=== PATIENT | male | born 1985 | race African-American/Black ===

== ENCOUNTER 2020-06-13 17:25 | Emergency (ER) | payer SELFPAY ==
[2020-06-13 17:27] VITALS: BP 163/91; PULSE 97; RESP 20; TEMP 36.3; O2SAT 98
[2020-06-13] MEDS: predniSONE 20 MG TABLET 60 MG PO (18:05)
[2020-06-13 18:10] LABS: Basophils Percent Auto 0.5 % (0.2-1.2); Eosinophils Absolute Auto 0.1 K/mm3 (0-0.3); Eosinophils Percent Auto 1.3 % (0-4.4); Hematocrit 53.3 % (42.0-52.0); Hemoglobin 18.3 g/dL (14.0-18.0); Immature Granulocyte Absolute 0.02 K/mm3 (0.00-0.031); Immature Granulocyte Percent A 0.2 % (0-0.5); Lymphocytes Absolute Auto 3.19 K/mm3 (0.9-3.2); Lymphocytes Percent Auto 38.1 % (18.3-44.2); Mean Corpuscular HGB Conc 34.3 g/dl (32-36); Mean Corpuscular Hemoglobin 35.1 pg (26-34); Mean Corpuscular Volume 102.3 fl (80-100); Mean Platelet Volume 12.2 fl (7.4-10.4); Monocytes Absolute Auto 1.1 K/mm3 (0.1-0.6); Monocytes Percent Auto 12.5 % (2.6-8.5); Neutrophils Percent Auto 47.4 % (45.5-73.1); Platelet Count Result 187 k/mm3 (150-375); Red Blood Count 5.21 M/mm3 (4.6-6.20); Red Cell Distribution Width 13.6 % (11.5-14.5); White Blood Count 8.4 K/mm3 (4.5-10.0)
--- NOTE | 2020-06-13 18:14 | PC.NURSE ---
patient given prednisone as ordered. labs drawn by trim technician.
[2020-06-13 18:22] LABS: Atypical Lymphocytes Present; Platelet Estimate Adequate (Adequate)
[2020-06-13 18:24] LABS: Anion Gap 9 mmol/L (8-16); Blood Urea Nitrogen 15 mg/dL (9-20); CRP 1.4 mg/dL (<1.0); Calcium 9.4 mg/dL (8.4-10.2); Carbon Dioxide 33 mmol/L (22-30); Chloride 98 mmol/L (98-107); Estimated CRCL calculation 121 ml/min; Estimated Glomerular Filt Rate > 60; Glucose 100 mg/dL (75-110); Potassium 3.4 mmol/L (3.4-5.0); Sodium 140 mmol/L (137-145); Uric Acid 8.8 mg/dL (3.5-8.5)
--- NOTE | 2020-06-13 19:03 | ED.EXTPRO ---
HPI - Extremity Problem General Chief complaint: Extremity Problem,Nontraumatic Stated complaint: rt foot pain & swelling Time Seen by Provider: 06/13/20 17:44 Source: patient Mode of arrival: ambulatory Limitations: no limitations History of Present Illness HPI Narrative: 35-year-old with no major medical problems here with complaints of right ankle pain and swelling for past few days. He denies any trauma. 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 No previous history of any gout. MD Complaint: joint swelling and joint paint Onset (ago): week(s) (1) Location: right Severity scale (1-10): 6 Quality: aching Relieving factors: nothing Exacerbating factors: nothing Related Data Home Medications Medication Instructions Recorded Confirmed naproxen sodium [Aleve] 220 mg PO Q12H PRN 06/13/20 Allergies Allergy/AdvReac Type Severity Reaction Status Date / Time No Known Allergies Allergy Mild Verified 06/13/20 17:32 Review of Systems Review of Systems: All systems reviewed & are unremarkable except as noted in HPI and below Constitutional: Constitutional: Reports no additional constitutional complaints Eyes: Eyes: Reports as per HPI ENT: Reports system reviewed and no additional complaints, except as documented Respiratory: Respiratory: Reports no additional respiratory complaints Musculoskeletal: Musculoskeletal: Reports no additional musculoskeletal complaints Neurologic: Reports system reviewed and no additional complaints, except as documented Psychiatric: Psychiatric: Reports no additional psychiatric complaints [facility] Social History Social History Gender identity (if verbalized by the patient): Male Exam Narrative: Exam Narrative: GENERAL: Well-appearing, well-nourished, and in no acute distress. HEAD: Normocephalic, atraumatic. EYES: PERRLA and EOMI. ENT: Nares clear, Mucous membranes moist. NECK: Supple. CHEST: Clear to auscultation. No respiratory distress. HEART: Regular rate and rhythm. No murmur heard. Normal peripheral pulses. ABDOMEN: Soft, nontender, nondistended, normal active bowel sounds. EXTREMITIES: Normal range of motion. No edema. SKIN: Warm, dry, no rash. NEURO: No focal deficits. Alert and oriented x3. PSYCH: Normal mood and affect. Course Course Emergency Course: Inform patient about his lab work. Advised him to cut down red meat, take medications as prescribed, follow-up with his primary doctor. Vital Signs Vital signs: Vital Signs Temperature 36.3 C L 06/13/20 17:27 Pulse Rate 97 06/13/20 17:27 Respiratory Rate 20 06/13/20 17:27 Blood Pressure 163/91 H 06/13/20 17:27 Pulse Oximetry 98 06/13/20 17:27 Temperature 36.3 C L 06/13/20 17:27 Pulse Rate 97 06/13/20 17:27 Respiratory Rate 20 06/13/20 17:27 Blood Pressure 163/91 H 06/13/20 17:27 Pulse Oximetry 98 06/13/20 17:27 MDM - Extremity (Nontraumatic) Lab Data Result diagrams: 06/13/20 18:05 06/13/20 18:05 Labs: Lab Results 06/13/20 06/13/20 Range/Units 18:05 18:05 WBC 8.4 (4.5-10.0) K/mm3 RBC 5.21 (4.6-6.20) M/mm3 Hgb 18.3 H (14.0-18.0) g/dL Hct 53.3 H (42.0-52.0) % MCV 102.3 H (80-100) fl MCH 35.1 H (26-34) pg MCHC 34.3 (32-36) g/dl RDW 13.6 (11.5-14.5) % Plt Count 187 (150-375) k/mm3 MPV 12.2 H (7.4-10.4) fl Immature Gran % (Auto) 0.2 (0-0.5) % Neut % (Auto) 47.4 (45.5-73.1) % Lymph % (Auto) 38.1 (18.3-44.2) % [place] % (Auto) 12.5 H (2.6-8.5) % Eos % (Auto) 1.3 (0-4.4) % Baso % (Auto) 0.5 (0.2-1.2) % Lymph # (Auto) 3.19 (0.9-3.2) K/mm3 [place] # (Auto) 1.1 H (0.1-0.6) K/mm3 Eos # (Auto) 0.1 (0-0.3) K/mm3 Baso # (Auto) 0.0 (0.0-0.1) K/mm3 Abs Immat Gran (auto) 0.02 (0.00-0.031) K/mm3 Absolute Neuts (auto) 4.0 (1.3-6.7) K/mm3 Absolute Nucleated RBC 0.0 (0.0-0.012) K/mm3 Nucleated RBC % 0.0 (0.0-0.2) % Atypical
[2020-06-13 19:21] VITALS: BP 145/78; PULSE 88; O2SAT 96
== END 2020-06-13 19:22 | disposition home or self-care (01) ==
PROVIDERS: Emergency Provider Family Medicine
DX: M10.9 Gout, unspecified (principal)
CPT/HCPCS: 36415; 80048; 84550; 85025; 86140; 99283; J7512

== ENCOUNTER 2022-01-05 06:09 | Emergency (ER) | payer SELFPAY ==
--- NOTE | ~2022-01-05 | XR_ITS ---
EXAMINATION: XR shoulder LT min 2V DATE: 01/05/2022 06:39 INDICATION: Trauma to the left shoulder TECHNIQUE: AP internally and externally rotated, AP oblique externally rotated and transscapular Y vi ews of the left shoulder were obtained. COMPARISON: None FINDINGS: Normal alignment. No fracture. Glenohumeral joint is normal. Acromioclavicular joint is normal. Soft tissues are unremarkable. Visualized portion of the left lung are clear. IMPRESSION: Negative left shoulder radiographs. Reviewed, dictated and finalized at location A.
--- NOTE | ~2022-01-05 | CT_ITS ---
EXAMINATION: CT cervical spine wo con DATE: 01/05/2022 07:46 INDICATION: 2 days of neck and shoulder pain. TECHNIQUE: Computed tomography (CT) of the cervical spine was performed without intravenous contrast. Automated exposure control and iterative reconstruction technique were employed. The dose-length pro duct was 472.52 mGy-cm. COMPARISON: None FINDINGS: Likely positional mild reversal of the normal cervical lordosis with a folded blanket seen supporting the patient's head. No spondylolisthesis or facet subluxation. Vertebral body and disc heights are n ormal. No fracture. No significant facet or uncovertebral osteoarthritis. Central canal and neural fo ramina are patent throughout. Cervical soft tissues are unremarkable. The mastoid air cells, middle e ar cavities and visualized portions of the sphenoid sinuses, airway and apices of lungs are all clear . IMPRESSION: 1. Likely positional reversal of the normal cervical lordosis. Otherwise unremarkable cervical spine CT. Reviewed, dictated and finalized at location A. IMPRESSION: 1. Likely positional reversal of the normal cervical lordosis. Otherwise unrema rkable cervical spine CT.
[2022-01-05 06:10] VITALS: BP 149/124; PULSE 89; RESP 18; TEMP 37.1; O2SAT 100
[2022-01-05 06:25] VITALS: BP 148/109; PULSE 71; RESP 18; O2SAT 99
[2022-01-05] MEDS: IBUPROFEN 600 MG TABLET PO (06:25)
--- NOTE | 2022-01-05 07:26 | PC.NURSE ---
Took report from maintenance technician 3rd shift, pt resting at this time.
[2022-01-05 07:33] VITALS: BP 131/100; PULSE 63; RESP 20; O2SAT 100
--- NOTE | 2022-01-05 07:42 | ED.UPPEXIN ---
HPI - Extremity Injury (Upper) General Chief Complaint: Extremity Injury, Upper Stated Complaint: left arm pain Time Seen by Provider: 01/05/22 06:20 Source: patient Mode of arrival: ambulatory Limitations: no limitations History of Present Illness HPI narrative: Patient reports a tree branch fell on the top of left shoulder denies head injury. Or other injuries Related Data Home Medications Medication Instructions Recorded Confirmed naproxen sodium [Aleve] 220 mg PO Q12H PRN 06/13/20 Allergies Allergy/AdvReac Type Severity Reaction Status Date / Time No Known Allergies Allergy Mild Verified 01/05/22 06:11 Review of Systems Review of Systems: All systems reviewed & are unremarkable except as noted in HPI and below PMFSH Social History Social History Gender identity (if verbalized by the patient): Male Exam Narrative: General appearance: Well-developed, well-nourished Skin: Normal color Head: Normocephalic, nontraumatic Eyes: Clear conjunctiva ENT: Oropharynx normal, ears normal, nose normal Neck: Supple, nontender Chest and respiratory: Airway patent, no respiratory distress, no accessory muscle use Heart: Regular rate/rhythm Abdomen: Soft, nontender, no organomegaly, quiet bowel sounds Vascular: Normal peripheral pulses, normal capillary refill. Musculoskeletal: Diffuse tenderness at the top of left shoulder, no bruises, no swelling, no deformity, limited range of motion. Diffuse tenderness left side of neck Neurologic: Alert and oriented ?3, [employer] is normal as tested, no gross motor deficit Course Vital Signs Vital signs: Vital Signs Temperature 37.1 C 01/05/22 06:10 Pulse Rate 89 01/05/22 06:10 Respiratory Rate 18 01/05/22 06:10 Blood Pressure 149/124 H 01/05/22 06:10 Pulse Oximetry 100 01/05/22 06:10 Temperature 37.1 C 01/05/22 06:10 Pulse Rate 63 01/05/22 07:33 Respiratory Rate 20 01/05/22 07:33 Blood Pressure 131/100 H 01/05/22 07:33 Pulse Oximetry 100 01/05/22 07:33 MDM - Extremity Injury (Upper) MDM Narrative Medical decision making narrative: Left shoulder contusion/fracture Imaging Data My impression: Impressions Shoulder X-Ray 01/05/22 06:55 IMPRESSION: Negative left shoulder radiographs. Cervical Spine CT 01/05/22 07:57 IMPRESSION: 1. Likely positional reversal of the normal cervical lordosis. Otherwise unremarkable cervical spine CT. Radiologist's impression: Impressions Shoulder X-Ray 01/05/22 06:55 IMPRESSION: Negative left shoulder radiographs. Critical Care Time Critical Care Time Critical Care Time: No Discharge Plan Discharge Clinical Impression: Contusion of left shoulder Qualifiers: Encounter type: initial encounter Qualified Code(s): S40.012A - Contusion of left shoulder, initial encounter Patient Disposition: Home, Self-Care Condition: Stable Instructions: Antibiotic Form Additional Instructions: Return if symptoms are worsening , call your family physician for appointment, take Tylenol as as needed for aches and pain, continue home medications. Prescriptions: New naproxen [Naprosyn] 500 mg tablet 500 mg PO BID PRN (Reason: pain) Qty: 14 RF: 0 No Action naproxen sodium [Aleve] 220 mg Tablet 220 mg PO Q12H PRN (Reason: Pain) RF: 0 Follow-up/Referrals: PHYSICIAN,CIRCULATION LIBRARIAN [Primary Care Provider] - Gareth Padron MD [Physician] - 01/08/22
[2022-01-05 08:35] VITALS: BP 139/85; PULSE 66; RESP 18; O2SAT 100
== END 2022-01-05 08:38 | disposition home or self-care (01) ==
PROVIDERS: Emergency Provider Emergency Medicine
DX: S40.012A Contusion of left shoulder, initial encounter (principal); W20.8XXA Other cause of strike by thrown, projected or falling object, initial encounter
CPT/HCPCS: 72125; 73030; 99283; A9270

== ENCOUNTER 2022-01-14 13:09 | Emergency (ER) | payer OTHER, SELFPAY ==
[2022-01-14 13:30] VITALS: BP 132/85; PULSE 85; RESP 18; TEMP 36.6; O2SAT 97
--- NOTE | 2022-01-14 13:34 | ED.EAR ---
HPI - Ear Problem General Chief complaint: Ear Stated complaint: Can't hear out of ear Time Seen by Provider: 01/14/22 13:34 Source: patient Mode of arrival: ambulatory Limitations: no limitations History of Present Illness HPI Narrative: 36-year-old male presents with decreased hearing, fullness feeling to right ear. No other complaints today. All systems reviewed and negative except as noted above. Related Data Home Medications Medication Instructions Recorded Confirmed elviteg 150 mg-cob 150 mg-emtricit 1 tablet PO DAILY 01/14/22 01/14/22 200 mg-tenofo alafenam 10 mg tablet (Genvoya) Allergies Allergy/AdvReac Type Severity Reaction Status Date / Time No Known Allergies Allergy Mild Verified 01/14/22 13:21 Review of Systems Review of Systems: CONSTITUTIONAL: Denies fever, chills, or sweats. EYES: Denies visual changes, redness, or discharge. ENT: Denies rhinorrhea, congestion, sore throat, or otalgia. Reports right ear fullness, decreased hearing. CARDIOVASCULAR: Denies chest pain, palpitations, or edema. RESPIRATORY: Denies cough or dyspnea. GASTROINTESTINAL: Denies abdominal pain, nausea, vomiting, or diarrhea. GENITOURINARY: Denies dysuria or hematuria. SKIN: Denies rash or itching. MUSCULOSKELETAL: Denies back pain, joint pain, or myalgia. NEUROLOGIC: Denies headache, numbness, or weakness. PSYCHIATRIC: Denies anxiety or depression. All other systems reviewed are negative, except as documented in HPI. PMFSH Social History Social History Gender identity (if verbalized by the patient): Male Comments At time of signature, agree with nursing past medical, surgical, social and family history. There is no relevant family history pertinent to the presenting complaint. Exam Narrative: GENERAL: This is a well-nourished, well-developed patient, in no apparent distress. HEAD: normocephalic, atraumatic. EYES: PERRL. Sclera clear/white. Vision is grossly intact. EARS: External ears normal, right ear canal impacted with cerumen, TMs normal without perforation. NOSE: External nose normal NECK: Neck supple, non-tender without lymphadenopathy, masses or thyromegaly. CARDIOVASCULAR: Regular rate and rhythm without murmurs, gallops, or rubs. RESPIRATORY: Clear to auscultation. Breath sounds equal bilaterally. No wheezes, rales, or rhonchi. SKIN: warm, Dry, intact with no suspicious lesions or rash, good texture and turgor. NEURO: awake, alert, and oriented to person, place and time. There were no obvious focal neurologic abnormalities. EXTREMITIES: Normal range of motion to all extremities. Course Course Level of Care: Express Care Visit Vital Signs Vital signs: Vital Signs Temperature 36.6 C 01/14/22 13:30 Pulse Rate 85 01/14/22 13:30 Respiratory Rate 18 01/14/22 13:30 Blood Pressure 132/85 01/14/22 13:30 Pulse Oximetry 97 01/14/22 13:30 Oxygen Delivery Room Air 01/14/22 13:30 Temperature 36.6 C 01/14/22 13:30 Pulse Rate 85 01/14/22 13:30 Respiratory Rate 18 01/14/22 13:30 Blood Pressure 132/85 01/14/22 13:30 Pulse Oximetry 97 01/14/22 13:30 Oxygen Delivery Room Air 01/14/22 13:30 Reviewed Procedures Ear Wax Removal Right Ear: Ear Wax Removal Date: 01/14/22 Ear Wax Removal Time: 13:49 Cerumenolytic Used: other (Hydrogen peroxide) Results: Re-examined: cerumen removed completely TM Examination: TM(s) intact, normal appearance Ear Canal Exam: atraumatic Patient Tolerated Procedure: well Complications: no problems Technique: ear canal irrigated (Right) and ear canal curetted (right) Medical Decision Making MDM Narrative Medical decision making narrative: Patient is aware of diagnosis, understands and agrees to treatment plan. Anticipatory guidance given. Patient agrees to follow-up as directed and is aware of reasons to seek care at the em
== END 2022-01-14 13:46 | disposition home or self-care (01) ==
PROVIDERS: Emergency Provider Nurse Practitioner Family
DX: H61.21 Impacted cerumen, right ear (principal); Z21 Asymptomatic human immunodeficiency virus [HIV] infection status
CPT/HCPCS: 69210; 99213; A9270; G0463

== ENCOUNTER 2023-11-18 17:45 | Emergency (ER) | payer OTHER, SELFPAY ==
[2023-11-18 17:51] VITALS: BP 138/90; PULSE 90; RESP 16; TEMP 36.4; O2SAT 100
[2023-11-18 18:57] VITALS: BP 139/99; PULSE 82; RESP 18; O2SAT 100
--- NOTE | 2023-11-18 19:00 | PC.NURSE ---
Pt states he does not want any blood drawn or IVs. 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
--- NOTE | 2023-11-18 19:22 | ED.GENADULT ---
[facility] - General Adult General Chief complaint: Nausea/Vomiting/Diarrhea Stated complaint: diarrhea Time Seen by Provider: 11/18/23 19:02 Source: patient Mode of arrival: ambulatory Limitations: no limitations History of Present Illness [facility] narrative: This is a 38-year-old male who presents to the ED with chief complaint of diarrhea x3 days. 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 He reports that he is feeling fine otherwise. He is taking [id number] medications and staying hydrated. Denies fevers, chills, abdominal pain, nausea, vomiting, GI bleeding symptoms. Related Data Home Medications Medication Instructions Recorded Confirmed elviteg 150 mg-cob 150 mg-emtricit 1 tablet PO DAILY 01/14/22 01/14/22 200 mg-tenofo alafenam 10 mg tablet (Genvoya) Allergies Allergy/AdvReac Type Severity Reaction Status Date / Time No Known Allergies Allergy Mild Verified 11/18/23 17:46 Review of Systems Review of Systems: All systems as dictated in [facility] Social History Social History Gender identity (if verbalized by the patient): Male Exam Narrative: GENERAL: Well-appearing, well-nourished, and in no acute distress. HEAD: Normocephalic, atraumatic. EYES: PERRLA and EOMI. ENT: Nares clear, no rhinorrhea or epistaxis. Mucous membranes moist. Oropharynx without tonsillar hypertrophy exudate or other lesions. NECK: Supple. No adenopathy or masses. CHEST: No respiratory distress. Clear to auscultation. No wheezes rales or rhonchi HEART: Regular rate and rhythm. No murmur heard. Normal peripheral pulses. ABDOMEN: Soft, nontender, nondistended, normal active bowel sounds. MSK: Normal range of motion. No edema. SKIN: Warm, dry, no rash. NEURO: Alert and oriented x3. No focal deficits. PSYCH: Normal mood and affect. Course Vital Signs Vital signs: Vital Signs Temperature 97.5 F L 11/18/23 17:51 Pulse Rate 90 11/18/23 17:51 Respiratory Rate 16 11/18/23 17:51 Blood Pressure 138/90 11/18/23 17:51 Pulse Oximetry 100 11/18/23 17:51 Oxygen Delivery Room Air 11/18/23 17:51 Temperature 97.5 F L 11/18/23 17:51 Pulse Rate 82 11/18/23 18:57 Respiratory Rate 18 11/18/23 18:57 Blood Pressure 139/99 H 11/18/23 18:57 Pulse Oximetry 100 11/18/23 18:57 Oxygen Delivery Room Air 11/18/23 17:51 Medical Decision Making MDM Narrative Medical decision making narrative: This is a 38-year-old male who presents to the ED with chief complaint of diarrhea x 3 days. Vitals are normal. Exam is benign. No acute abdomen. Lab work or any further workup was deferred by patient. He states he is feeling fine otherwise and is to see [employer] upholstery department supervisor him come. He was comfortable with supportive measures at home and following up with PCP. Pt will be discharged in stable condition. Return precautions given and supportive measures discussed. Pt is understanding and agreeable with plan for discharge and follow-up with PCP. Vital Signs Vital Signs: Vital Signs Temperature 97.5 F L 11/18/23 17:51 Pulse Rate 90 11/18/23 17:51 Respiratory Rate 16 11/18/23 17:51 Blood Pressure 138/90 11/18/23 17:51 Pulse Oximetry 100 11/18/23 17:51 Oxygen Delivery Room Air 11/18/23 17:51 Temperature 97.5 F L 11/18/23 17:51 Pulse Rate 82 11/18/23 18:57 Respiratory Rate 18 11/18/23 18:57 Blood Pressure 139/99 H 11/18/23 18:57 Pulse Oximetry 100 11/18/23 18:57 Oxygen Delivery Room Air 11/18/23 17:51 Discharge Plan Discharge Clinical Impression: Gastroenteritis Patient Disposition: Home, Self-Care Condition: Stable Instructions: Antibiotic Form Additional Instructions: Your exam today is reassuring overall. Please follow-up with your PCP. Continue staying well hydrated using [id number] medications for diarrhea. If you have any new or worsening s
[2023-11-18 20:00] VITALS: RESP 16
== END 2023-11-18 19:50 | disposition home or self-care (01) ==
PROVIDERS: Emergency Provider Physician Assistant
DX: K52.9 Noninfective gastroenteritis and colitis, unspecified (principal)
CPT/HCPCS: 99281

== ENCOUNTER 2024-03-30 09:47 | Emergency (ER) | payer OTHER, SELFPAY ==
[2024-03-30 09:51] VITALS: BP 142/92; PULSE 76; RESP 20; TEMP 36.6; O2SAT 98
--- NOTE | 2024-03-30 10:21 | ED.MALEGU ---
HPI - Male Genitourinary General Chief complaint: Urogenital-Male Stated complaint: bump on penis Time Seen by Provider: 03/30/24 10:17 History of Present Illness HPI Narrative: Pt presents with bump on his penis that started yesterday and looks a little bigger today. Pt says he was screened for STD's and is negative. Pt says it does not hurt or drain. Pt has no drainiage or dischare or UTI symptoms. Related Data Home Medications Medication Instructions Recorded Confirmed elviteg 150 mg-cob 150 mg-emtricit 1 tablet PO DAILY 01/14/22 01/14/22 200 mg-tenofo alafenam 10 mg tablet (Genvoya) Allergies Allergy/AdvReac Type Severity Reaction Status Date / Time No Known Allergies Allergy Mild Verified 03/30/24 09:56 Review of Systems Review of Systems: All systems reviewed & are unremarkable except as noted in HPI and below PMFSH Social History Social History Gender identity (if verbalized by the patient): Male Exam Const: General: healthy appearing and no acute distress Nutritional Appearance: well nourished Limitations: no limitations Resp: Effort & Inspection: normal respiratory effort Cardio: Rate: regular rate Rhythm: regular rhythm GI: GI Palp: Yes Soft to palpation and No Tenderness to palpation present (GI) : Male General Exam: Yes Genital lesions present (small non erythematous lesion to shaft of penis, no ulcer) Scrotum: scrotum normal Testes: Testes normal Course Vital Signs Vital signs: Vital Signs Temperature 97.9 F 03/30/24 09:51 Pulse Rate 76 03/30/24 09:51 Respiratory Rate 20 03/30/24 09:51 Blood Pressure 142/92 H 03/30/24 09:51 Pulse Oximetry 98 03/30/24 09:51 Oxygen Delivery Room Air 03/30/24 09:51 Temperature 97.9 F 03/30/24 09:51 Pulse Rate 76 03/30/24 09:51 Respiratory Rate 20 03/30/24 09:51 Blood Pressure 142/92 H 03/30/24 09:51 Pulse Oximetry 98 03/30/24 09:51 Oxygen Delivery Room Air 03/30/24 09:51 Discharge Plan Discharge Clinical Impression: Folliculitis Patient Disposition: Home, Self-Care Condition: Stable Instructions: Antibiotic Form, Folliculitis (ED) Prescriptions: New sulfamethoxazole-trimethoprim [Bactrim DS] 800-160 mg tablet 1 tablet PO Q12H Qty: 20 0RF No Action Genvoya [phone] mg tablet 1 tablet PO DAILY ofloxacin 0.3 % drops 10 drp RIGHT EAR DAILY 7 Days Qty: 5 0RF Follow-up/Referrals: UNKNOWN,DOCTOR [Non-Staff] -
== END 2024-03-30 10:38 | disposition home or self-care (01) ==
LOC: ANHED 10:29
PROVIDERS: Emergency Provider Emergency Medicine
DX: L73.9 Follicular disorder, unspecified (principal)
CPT/HCPCS: 99283

== ENCOUNTER 2024-04-20 08:31 | Emergency (ER) | payer OTHER, SELFPAY ==
--- NOTE | ~2024-04-20 | CT_ITS ---
CT of the Abdomen and Pelvis: Indication: Transaminitis, nausea and vomiting Technique: 2.5 mm axial scans were obtained through the abdomen and pelvis following intravenous adm inistration of 100 cc of Omnipaque 350. Dose reduction technique was used on this scan by utilizing a utomated exposure control and iterative reconstruction technique. The dose-length product (DLP) was 4 10.80 mGy-cm. Findings: Scans through the lung bases are unremarkable. There is diffuse hepatic steatosis. The spleen, pancreas, gallbladder, adrenals and kidneys are withi n normal limits. No evidence of aortic aneurysm. No lymphadenopathy. Questionable mild wall thickening of the distal sigmoid colon/rectum. No bowel obstruction. Images through the pelvis were performed. Urinary bladder unremarkable. No pelvic mass seen. No ascit es. Impression: Diffuse hepatic steatosis. Questionable mild wall thickening of the rectum. Correlate for infectious/inflammatory colitis. Reviewed, dictated and finalized at [facility]. Impression: Diffuse hepatic steatosis. Questionable mild wall thickening of the rectum. Correlate for infectious/infla mmatory colitis.
--- NOTE | ~2024-04-20 | XR_ITS ---
Clinical Indication: Shortness of breath PA and lateral views of the chest: Comparison: None Findings: The lungs are clear, without evidence of focal consolidation or pleural effusion. Cardiome diastinal silhouette is within normal limits. Bones and soft tissues are unremarkable. Impression: Normal chest. Reviewed, dictated and finalized at [facility]. Impression: Normal chest.
[2024-04-20 08:38] VITALS: BP 145/93; PULSE 111; RESP 22; TEMP 36.7; O2SAT 100
--- NOTE | 2024-04-20 08:39 | ED.NAVMDI ---
HPI - Nausea/Vomiting/Diarrhea General Chief complaint: Nausea/Vomiting/Diarrhea Stated complaint: dehydrated Time Seen by Provider: 04/20/24 08:38 Source: patient Mode of arrival: ambulatory Limitations: no limitations History of Present Illness HPI Narrative: Patient presents concerned he is dehydrated. Last night he states he acutely started having nausea and body aches he felt lightheaded while at work. He had 1 episode of nonbloody emesis. His last bowel movement was this morning and he denies any diarrhea or blood in it. He has been coughing and feels slightly short of breath though denies any underlying respiratory conditions. He denies smoking. He denies any fever although he did felt chilled. He states he has chest pain only because he is cold. Is also having headache. He lives alone and denies any sick contacts. Related Data Home Medications Medication Instructions Recorded Confirmed elviteg 150 mg-cob 150 mg-emtricit 1 tablet PO DAILY 01/14/22 01/14/22 200 mg-tenofo alafenam 10 mg tablet (Genvoya) Allergies Allergy/AdvReac Type Severity Reaction Status Date / Time No Known Allergies Allergy Mild Verified 04/20/24 08:41 [facility] Social History Social History Smoking status: Never smoker Living arrangements: alone Occupation/Education: occupation Gender identity (if verbalized by the patient): Male Exam Narrative: GENERAL: Well-appearing, well-nourished, and in no acute distress. Odor of alcohol but patient not clinically intoxicated. No slurred speech. HEAD: Normocephalic, atraumatic. EYES: Non injected, non icteric ENT: Nares clear, no rhinorrhea or epistaxis. Tacky mucous membranes. NECK: Supple. CHEST: Speaking in full sentences. No respiratory distress. Lungs clear to auscultation bilaterally without wheezes or crackles. HEART: Regular rate and rhythm. . ABDOMEN: Soft, nondistended. EXTREMITIES: Normal range of motion. No lower extremity edema. SKIN: Warm, dry, no rash. NEURO: No focal deficits. Alert and oriented x3. PSYCH: Normal mood and affect. Course Vital Signs Vital signs: Vital Signs Temperature 98.1 F 04/20/24 08:38 Pulse Rate 111 H 04/20/24 08:38 Respiratory Rate 22 H 04/20/24 08:38 Blood Pressure 145/93 H 04/20/24 08:38 Pulse Oximetry 100 04/20/24 08:38 Oxygen Delivery Room Air 04/20/24 08:38 Temperature 97.9 F 04/20/24 10:30 Pulse Rate 103 H 04/20/24 10:30 Respiratory Rate 16 04/20/24 10:30 Blood Pressure 132/90 04/20/24 10:30 Pulse Oximetry 100 04/20/24 10:30 Oxygen Delivery Room Air 04/20/24 08:38 MDM - Nausea/Vomiting/Diarrhea MDM Narrative Medical decision making narrative: Patient presents with acute onset of nausea, body aches, lightheadedness and headache. He also notes a cough and shortness of breath. No fevers but he does feel chilled. In the emergency department he is afebrile with vital signs notable for mild tachypnea and mild tachycardia. Acceptable blood pressure although slightly elevated. IV fluids and ondansetron ordered. Mild Hyperbilirubinemia, elevated AST/ALT. Macrocytic anemia and thrombocytopenia. He does have an odor of alcohol and has alcohol level in the 50s. I presume the lab abnormalities are related to this. Ketonuria. Hypomagnesemia which will be repleted. Patient is reassessed at approximately 11:05 a.m.. He is complaining of headache states his stomach is bothering him. No pain, but some lingering nausea. He is reassessed at approximately 11:25 a.m. and feeling much better. Discharged home in stable condition. He is provided a short course of famotidine as well as contact information for primary care physician if needed. Differential Diagnosis Differential diagnosis: Likely food poisoning, gastroenteritis, drug-induced nausea and vomiting, dehydration and other (Pancreatitis, pneumonia, acute viral syndrome, gastritis,
[2024-04-20 08:57] LABS: Basophils Percent Auto 0.1 % (0.2-1.2); Hematocrit 36.7 % (42.0-52.0); Hemoglobin 13.2 g/dL (14.0-18.0); Immature Granulocyte Absolute 0.02 K/mm3 (0.00-0.031); Immature Granulocyte Percent A 0.3 % (0-0.5); Lymphocytes Percent Auto 4.4 % (18.3-44.2); Mean Corpuscular Hemoglobin 40.6 pg (26-34); Mean Corpuscular Volume 112.9 fl (80-100); Mean Platelet Volume 12.8 fl (7.4-10.4); Monocytes Absolute Auto 0.1 K/mm3 (0.1-0.6); Monocytes Percent Auto 1.5 % (2.6-8.5); Neutrophils Absolute Auto 6.4 K/mm3 (1.3-6.7); Neutrophils Percent Auto 93.7 % (45.5-73.1); Platelet Count Result 101 k/mm3 (150-375); Red Blood Count 3.25 M/mm3 (4.6-6.20); Red Cell Distribution Width 16.5 % (11.5-14.5); White Blood Count 6.9 K/mm3 (4.5-10.0)
[2024-04-20 09:08] LABS: Bacteria Urine None Seen /hpf; Non Pathogenic Casts 0-2; RBC Urine 0-2 /hpf (0-2); Squamous Epithelial Cell Urine None Seen /hpf (Few); WBC Urine 0-5 /hpf (0-3)
[2024-04-20 09:20] LABS: Alanine Aminotransferase 63 U/L (6-50); Albumin Level 4.1 g/dL (3.5-5.1); Alkaline Phosphatase 102 U/L (38-126); Anion Gap 11 mmol/L (4-12); Aspartate Amino Transferase 122 U/L (17-59); Bilirubin,Total 1.8 mg/dL (0.2-1.3); Blood Urea Nitrogen 11 mg/dL (9-20); Calcium 8.4 mg/dL (8.4-10.2); Carbon Dioxide 28 mmol/L (22-30); Chloride 99 mmol/L (98-107); Estimated CRCL calculation 94 ml/min; Estimated Glomerular Filt Rate > 60; Glucose 92 mg/dL (65-110); Lipase 141 U/L (23-300); Sodium 138 mmol/L (137-145)
--- NOTE | 2024-04-20 09:20 | ECG_ITS ---
Test Date: 2024-04-20 09:44:15 Measurements Intervals [place] Rate: 98 P: 47 CA: 163 QRS: 7 QRSD: 96 T: 33 QT: 366 QTc: 467 Interpretive Statements SINUS RHYTHM NORMAL ECG No previous ECG available for comparison Electronically Signed On 04-20-2024 17:24:08 CDT by [place] D.O.
[2024-04-20] MEDS: SODIUM CHLORIDE 0.9% IV 1,000 ML 999 ML IV CONT (09:24)
[2024-04-20 09:25] LABS: Anisocytosis 1+; Platelet Estimate Adequate (Adequate); Schistocytes None Seen; Target Cells 1+
[2024-04-20] MEDS: ACETAMINOPHEN 500 MG TABLET 1000 MG PO (09:25)
[2024-04-20] MEDS: ONDANSETRON INJ 4 MG/2 ML VIAL IV PUSH (09:25)
[2024-04-20 09:30] VITALS: BP 145/96; PULSE 109; RESP 16; TEMP 36.6; O2SAT 100
[2024-04-20 09:32] LABS: Appearance Urine Clear (Clear); Blood Urine Negative (Negative); Color Urine Yellow (Yellow); Glucose Urine UA Negative (Negative); Ketones Urine 1+ mg/dL (Negative); Protein Urine Trace mg/dL (Negative); Specific Grav Ur 1.015 (1.001-1.035); pH Urine 8.5 (5.0-9.0)
[2024-04-20 09:33] LABS: Influenza A QL RT-PCR Negative (Negative); Influenza B QL RT-PCR Negative (Negative); RSV RNA, RT-PCR Negative (Negative); SARS-CoV-2 RNA PCR Negative (Negative)
[2024-04-20 09:33] LABS: Add Urine Microscopic? YES; Bilirubin Urine Negative (Negative); Leukocyte Esterase Ur Negative LEU/UL (Negative); Nitrate Urine Negative (Negative)
[2024-04-20 09:39] LABS: Ethanol 52 mg/dL (<10); Magnesium 1.4 mg/dL (1.6-2.3)
[2024-04-20] MEDS: MAGNESIUM SULF 1 GM/D5W 100 ML 1 GM/100 ML BAG IVPB (10:09)
[2024-04-20 10:30] VITALS: BP 132/90; PULSE 103; RESP 16; TEMP 36.6; O2SAT 100
[2024-04-20] MEDS: FAMOTIDINE 20 MG/2 ML VIAL IV PUSH (10:54)
[2024-04-20] MEDS: MAG HYDROX/AL HYDROX/SIMETH 30 ML UDC PO (11:12)
[2024-04-20] MEDS: KETOROLAC 15 MG/ML VIAL (*BKC) IV PUSH (11:12)
== END 2024-04-20 12:14 | disposition home or self-care (01) ==
PROVIDERS: Emergency Provider Student in an Organized Health Care Education/Training Program
DX: K29.70 Gastritis, unspecified, without bleeding (principal); R74.01 Elevation of levels of liver transaminase levels; D64.9 Anemia, unspecified; D69.6 Thrombocytopenia, unspecified; R82.4 Acetonuria; F10.90 Alcohol use, unspecified, uncomplicated; Y90.9 Presence of alcohol in blood, level not specified; E83.42 Hypomagnesemia; K76.0 Fatty (change of) liver, not elsewhere classified; Z20.822 Contact with and (suspected) exposure to COVID-19
CPT/HCPCS: 36415; 71046; 74177; 80053; 80307; 81001; 83690; 83735; 85025; 87637; 93005; 96361; 96365; 96375; 99284; A9270; J1885; J2405; J3475; J7030; Q9967

== ENCOUNTER 2024-12-11 13:04 | Observation (INO) | payer SELFPAY ==
[2024-12-11] VITALS (10 sets, daily range): BP systolic 93–134; BP diastolic 62–92; PULSE 88–130; RESP 14–28; TEMP 36.3–36.6; O2SAT 95–100; BMI 27.8
--- NOTE | ~2024-12-11 | CT_ITS ---
CLINICAL INDICATION: Bilateral lower quadrant pain COMPARISON: 04/20/2024. TECHNIQUE: Multiple contiguous axial images of the abdomen and pelvis were performed without the admi nistration of intravenous contrast The dose-length product (DLP) was 422.40 mGy-cm. Automated exposure control and iterative reconstruction technique were employed. FINDINGS/OBSERVATIONS: Visualized lower thorax: The bilateral lung bases are clear. The heart is of normal size, without pericardial effusion. Small hiatal hernia is present. Liver: The liver demonstrates homogeneously decreased attenuation, consistent with fatty infiltration and is enlarged measuring 23 cm in longitudinal dimension. Gallbladder and biliary system: The gallbladder is only minimally distended, and otherwise unremarkable. Pancreas: Limited evaluation of the pancreas secondary to the lack of intravenous contrast. Spleen: The spleen demonstrates homogeneous attenuation and is not enlarged. Kidneys: The bilateral kidneys are unremarkable, without hydronephrosis or renal calculi. Adrenal glands: Unremarkable. Gastrointestinal tract: Oral contrast is identified which extends to the level of the distal descending colon without obstruc tion. Within the distal sigmoid colon, is a small amount of intraluminal hyper attenuating tissue represent ing either contrast or blood. No radiopaque foreign body is appreciated. Moderate mural thickening is identified throughout the entirety of the colon with multiple diverticul a isolated to the transverse colon. Infiltration of the presacral fat is also noted. Within the perineum, is a 5.5 mm hyperattenuating density, posterior to the rectum. Appendix: The appendix is of normal caliber (axial series, images 115 through 122). Vasculature: Unremarkable. Lymph nodes: Limited without intravenous contrast Pelvic structures: The bladder is decompressed with surrounding inflammatory change and thickened lazar. The prostate gland is not enlarged. Body wall and musculoskeletal: Small fat-containing umbilical hernia. No significant degenerative disease within the lower thoracic or lumbosacral spine. IMPRESSION: Mural thickening throughout the entirety of the colon. Oral contrast extends to the level of the distal descending colon without obstruction. Infiltration of the presacral fat. No radiopaque foreign body is appreciated. Hyperattenuating findings within the distal sigmoid colon which represent either oral contrast versus acute hemorrhage. Direct visualization is suggested. Reviewed, dictated and finalized at location A. IMPRESSION: Mural thickening throughout the entirety of the colon. Oral contrast extends to the level of the distal descending colon without obstr uction. Infiltration of the presacral fat. No radiopaque foreign body is appreciated. Hyperattenuating findings within the distal sigmoid colon which represent eithe r oral contrast versus acute hemorrhage. Direct visualization is suggested.
--- OUTSIDE RECORDS SUMMARY | 2024-12-11 13:07 | XMS_ITS | Referral Summary ---
Author Organization [facility] Address [address] [place] [address] Care Team Providers Care Spool Salvager Name Role Phone No, Physician Primary Care Provider [phone] Encounters Date Type Department Care Team Description 10/15/[address] [facility] Infectious Diseases [address] [place] [address] [place] [id number] Gurwinder Buckner CMA Cabenuva Injection 09/25/[address] [facility] Infectious Diseases [address] [place] [phone] Timoteo Ramos PA Transaminitis (Primary Dx) from Last 3 Months Allergies No known active allergies Medications Cabenuva suspension,exten ded releaseIndicatio ns:HIV infection, unspecified symptom status (HCC) PHARMACIST TO INJECT 3 ML INTRAMUSCULARLY OF BOTH CABOTEGRAVIR AND RILPIVIRINE ONCE FOR 1 DOSE 6 mL 5 08/22/19 25 Active doxycycline (VIBRAMYCIN) 100 mg capsuleIndicatio ns:Possible exposure to STI Take 2 tablet/capsule (200 mg total) by mouth daily as needed (Take within 24 hours after sexual contact with possible STI exposure and no later than 72 hours after sex.) Not to exceed 200 mg in a 24 hour period. 30 tablet/caps ule 1 09/11/19 25 Active amLODIPine (NORVASC) 2.5 mg tabletIndication s:Essential hypertension Take 1 tablet (2.5 mg total) by mouth daily 30 tablet 5 09/11/19 25 026 Active Active Problems Problem Noted Date Diagnosed Date Status post bariatric surgery 09/11/2024 Assessment & Plan (09/11/2024 9:47 AM SENIOR JAVA ARCHITECT): Hx of Gastric Sleeve surgery in 10/22/2020 in [place], with subsequent ~100 lb weight loss. Takes a bariatric multivitamin at home but not consistently. Has not followed up with a PCP or surgeon since the surgery, and has never had his post-bariatric nutritional status checked. He will need annual vitamin and mineral monitoring, and supplementation for any discovered deficiencies. - Plan to check post-Bariatric Vitamins (both fat-soluble and water-soluble) and Minerals with next labwork: Vitamins A, D, E, K, C, B1, B12, Folate, Iron, Zinc, Copper, Selenium - We discussed possibility of referral to PCP, but ultimately decided to continue managing his medical problems as able in this ID clinic. Transaminitis 09/11/2024 Assessment & Plan (09/11/2024 9:50 AM SENIOR JAVA ARCHITECT): Patient noted to have elevated AST to 128 and ALT 82 on blood tests in July 2024, up from AST 89/ALT 46 in October 2023. He denied any binge drinking or excessive alcohol use. - Plan to recheck Hepatic Function Panel with next set of bloodwork. Needs flu shot 08/14/2020 On highly active antiretroviral therapy (HAART) 03/17/2020 Assessment & Plan (02/05/2024 7:59 PM CDT): Check HIV RNA now that patient has transitioned to Cabenuva Assessment & Plan (11/15/2023 3:48 PM CDT): Routine lab monitoring on predatory animal exterminator HIV meds to assess for drug toxicity and efficacy. Assessment & Plan (07/05/2023 9:31 AM SENIOR JAVA ARCHITECT): Routine lab monitoring on mcfp HIV meds to assess for drug toxicity and efficacy. Assessment & Plan (09/07/2022 9:40 PM SENIOR JAVA ARCHITECT): Routine lab monitoring on mcfp HIV meds to assess for drug toxicity and efficacy. Assessment & Plan (03/05/2022 9:48 PM CDT): Routine lab monitoring on predatory animal exterminator HIV meds to assess for drug toxicity and efficacy. Assessment & Plan (09/08/2021 11:14 AM SENIOR JAVA ARCHITECT): Routine lab monitoring on mcfp HIV meds to assess for drug toxicity and efficacy. Assessment & Plan (03/18/2021 7:42 PM CDT): Routine lab monitoring on mcfp HIV meds to assess for drug toxicity and efficacy. Assessment & Plan (08/14/2020 11:24 AM SENIOR JAVA ARCHITECT): Routine lab monitoring on predatory animal exterminator HIV meds to assess for drug toxicity and efficacy. Assessment & Plan (03/17/2020 12:20 PM CDT): Routine lab monitoring on mcfp HIV meds to assess for drug toxicity and efficacy. Oral lesion 05/26/2019 Assessment & Plan (05/26/2019 12:32 PM CDT): In the setting of recent sexual encounter. Patient has a robust CD4 count making AIDS related complication less likely. On exam, there is a small, nontender red nodule present on the left upper buccal mucosa. We will screen for STI as possible etiology. Would otherwise expect lesion to resolve on its own. HIV infection 11/20/2018 Assessment & Plan (09/11/2024 9:42 AM SENIOR JAVA ARCHITECT): Patient was diagnosed in HIV in 2010, with genotyping showing extensive mutations to PI and T215C mutation for zidovudine. Previously unable to tolerate Complera or Genvoya. Now on Cabenuva with good adherence since November 2023. Last HIV RNA undetectable in 07/2024, with CD4 count of 637. - continue regular Cabenuva injections - continue to monitor HIV RNA and CD4 count every 6 months Assessment & Plan (02/05/2024 7:59 PM CDT): Started Cabenuva 11/18/2023 - very pleased 100% adherence encouraged to maintain viral suppression and prevent resistance. Undetectable = untransmittable. Counseling for risk reduction, adherence and pre-conception provided. Assessment & Plan (11/15/2023 3:48 PM CDT): Due to GI complaints on Genvoya, will D/C Genvoya and switch patient to Biktarvy- this is stop gap until he can get on Cabenuva. Will attempt prior auth for patient to switch to Cabenuva. 100% adherence encouraged to maintain viral suppression and prevent resistance. Undetectable = untransmittable. Counseling for risk reduction, adherence and pre-conception provided. Assessment & Plan (07/05/2023 9:30 AM SENIOR JAVA ARCHITECT): Patient would like to consider Cabenuva- test claim sent today Will continue Genvoya in the meantime. 100% adherence encouraged to maintain viral suppression and prevent resistance. Undetectable = untransmittable. Counseling for risk reduction, adherence and pre-conception provided. Assessment & Plan (09/07/2022 9:40 PM SENIOR JAVA ARCHITECT): Continue Genvoya 100% adherence encouraged to maintain viral suppression and prevent resistance. Undetectable = untransmittable. Counseling for risk reduction, adherence and pre-conception provided. Discussed Cabenuva--> will have pharmacy run to see if insurance will cover. Per clinical pharmacy team: patient is candidate for Cabenuva (two drug regimen) Explained dosing regimen and possible side effects. Assessment & Plan (03/05/2022 9:47 PM CDT): Continue Genvoya 100% adherence encouraged to maintain viral suppression and prevent resistance. Undetectable = untransmittable. Counseling for risk reduction, adherence and pre-conception provided. Assessment & Plan (09/08/2021 11:14 AM SENIOR JAVA ARCHITECT): Continue Genvoya 100% adherence encouraged to maintain viral suppression and prevent resistance. Undetectable = untransmittable. Counseling for risk reduction, adherence and pre-conception provided. Assessment & Plan (03/18/2021 7:41 PM CDT): Continue Genvoya 100% adherence encouraged to maintain viral suppression and prevent resistance. Undetectable = untransmittable. Counseling for risk reduction, adherence and pre-conception provided. Assessment & Plan (08/14/2020 11:24 AM SENIOR JAVA ARCHITECT): Continue Genvoya 100% adherence encouraged to maintain viral suppression and prevent resistance. Undetectable = untransmittable. Risk reduction counseling and adherence counseling provided. Assessment & Plan (03/17/2020 12:20 PM CDT): Continue Genvoya with 100% adherence encouraged to maintain viral suppression and prevent resistance. Undetectable = untransmittable. Risk reduction counseling and adherence counseling provided. Assessment & Plan (05/26/2019 12:28 PM CDT): Continue Genvoya with 100% adherence encouraged to maintain viral suppression and prevent resistance. Undetectable = untransmittable. Assessment & Plan (11/20/2018 12:54 PM CDT): Continue Genvoya with 100% adherence stressed to maintain viral suppression and prevent resistance - Take Genvoya daily with food - Routine lab monitoring on mcfp HIV meds: CBC, CMP, CD4, VL to assess drug toxicity/efficacy - Safer sex measures reviewed - Undetectable = untransmittable History of syphilis 11/20/2018 Assessment & Plan (09/11/2024 9:43 AM SENIOR JAVA ARCHITECT): Diagnosed with syphilis with RPR titer 1:64 in 02/2021, which improved to RPR 1:16 in 08/2021 after treatment. Then he was again +RPR 1:128 in 02/2022, treated with Bicillin then, with subsequent RPR improving back down to 1:2 by 06/2023. Most recent RPR was 1:2 again in 07/2024. - Continue to monitor RPR on regular labwork Assessment & Plan (11/20/2018 12:42 PM CDT): - 2012 1:256 treated with BIC x 3 with appropriate > 4 fold decrease in RPR - RPR 1:25 January 2016 (up from 1:2) treated with BIC x 1 - RPR 1:4 05/2016, 11/2016, 01/2017; RPR 1:2 11/2017 - RPR NR 11/2018 Erythrocytosis 11/20/2018 Assessment & Plan (09/11/2024 9:41 AM SENIOR JAVA ARCHITECT): Hx of elevated RBC in setting of smoking. Last Hgb in 07/2024 borderline high at 17.2, currently smoking around 1 pack per week. - CTM with regular labs - Counseled on smoking cessation as below - Can consider assessing for sleep apnea as another possible underlying cause at future appointments Assessment & Plan (03/05/2022 9:50 PM CDT): Has stopped smoking. Denies use of exogenous testosterone or supplements. Will check testosterone level. Previously had elevated erythropoietin level- will recheck today. Except for some elevated BP, has no symptoms concerning for pheochromocytoma. Continue sleep study for MICHA. Assessment & Plan (03/17/2020 12:23 PM CDT): Previously attributed to smoking, but as patient has continued to cut back on cigarette use, H/H continues to be elevated. In the absence of leukocytosis or thrombocytosis. EPO level was mildly elevated. Patient denies a history of frequent snoring or known MICHA but referred to sleep medicine given history of insomnia to rule out MICHA as a possible contributor. Assessment & Plan (05/26/2019 12:47 PM CDT): Previously attributed to smoking, but as patient has continued to cut back on cigarette use, H/H continues to increase. In the absence of leukocytosis or thrombocytosis. Patient denies a history of frequent snoring or known MICHA. We will check EPO level today. Referral to sleep medicine given history of insomnia to rule out MICHA as a possible contributor. Incidentally, patient recalls a recent history of epistaxis in the last week attributed to overuse of air conditioning. He denies any other issues with bleeding. Referral to Hematology for consultation. Assessment & Plan (11/20/2018 12:46 PM CDT): - Stable -11/2016: Hct = 52.9, Hgb = 17.4 -01/2017: Hct = 53.2, Hgb = 17.6 -05/2017: Hct = 52.5, Hgb = 17.7 -11/2017: Hct = 52.8, Hgb = 17.6 -02/2018: Hct = 52.1, Hgb = 17.2 -11/2018: Hct = 52.8, Hgb = 18.2 -Possibly due to smoking, will continue to monitor -Since MCV also elevated, checked folate, B12 levels which are normal Long-term use of high-risk medication 03/14/2018 Assessment & Plan (05/26/2019 12:29 PM CDT): Routine lab monitoring on long-term HIV medications to assess drug toxicity and efficacy. Nicotine dependence 02/11/2017 Assessment & Plan (09/11/2024 9:44 AM SENIOR JAVA ARCHITECT): Currently down to smoking 1 pack per week, interested in quitting entirely. - Gave patient smoking cessation resources including [place] [employer] information. - Offered patient nicotine replacement therapy but he declined given concern for strange dreams, would like to continue weaning down in aim to quit cold turkey. Assessment & Plan (11/20/2018 12:40 PM CDT): - Now down to 1 cig/day - Patient trying to quit using nicotine gum Hyperlipidemia 10/26/2015 Assessment & Plan (09/11/2024 9:39 AM SENIOR JAVA ARCHITECT): Patient has history of elevated Triglycerides of 159 in October 2023. - Plan to recheck Cholesterol panel with next set of labs before next visit Assessment & Plan (03/17/2020 12:25 PM CDT): Reviewed low-fat diet and increased physical activity. Assessment & Plan (05/26/2019 12:50 PM CDT): Check fasting lipid panel today. Reviewed low-fat diet and increased physical activity. Assessment & Plan (11/20/2018 12:41 PM CDT): - ASCVD = 7.1% - Improved. TC = 200, LDL = 125 (01/2018) - Continue lifestyle modifications- low fat diet, exercise Insomnia 07/27/2015 Assessment & Plan (03/17/2020 12:24 PM CDT): No current complaints and remains off Ambien at this time. Patient attributes past insomnia to stress and anxiety. Given history of insomnia and erythrocytosis, will refer to sleep medicine for sleep study to rule out MICHA. Assessment & Plan (05/26/2019 12:46 PM CDT): No current complaints and remains off Ambien at this time. Patient attributes past insomnia to stress and anxiety. Given history of insomnia and erythrocytosis, will refer to sleep medicine for sleep study to rule out MICHA. Assessment & Plan (11/20/2018 12:52 PM CDT): - Continue sleep hygiene measures - Patient says he stopped ambien Syphilis 08/14/2013 Essential hypertension 08/06/2013 Assessment & Plan (09/11/2024 10:27 AM SENIOR JAVA ARCHITECT): Patient's BP well-controlled in clinic today. - Refilling patient's Amlodipine 2.5mg daily Assessment & Plan (09/07/2022 9:43 PM SENIOR JAVA ARCHITECT): Continue amlodipine Well controlled- Repeat 140/90 Assessment & Plan (03/05/2022 9:52 PM CDT): In the past, his BP normalized after his gastric sleeve surgery. However it appears to be elevating again. Discussed restarting one of his BP meds. Previously on amlodipine 5mg.Will restart at amlodipine 2.5mg daily. Patient is agreeable to this plan. Assessment & Plan (09/08/2021 11:16 AM SENIOR JAVA ARCHITECT): He had stopped BP meds after his bariatric surgery. Patient advised to monitor BP at home/work. If systolic is consistently above 140 and diastolic is consistently over 90, he should restart chlorthalidone 25 daily. Then, if BP remains uncontrolled, resume amlodipine 5mg daily. Assessment & Plan (03/18/2021 7:42 PM CDT): Currently off meds, but BP well controlled after gastric sleeve surgery with resultant 100 lb weight loss. Will continue to monitor off meds. Assessment & Plan (03/17/2020 12:25 PM CDT): Currently on amlodipine and chlorthalidone. Blood pressure well controlled today. Encouraged sodium reduction and increased physical activity. Assessment & Plan (05/26/2019 12:49 PM CDT): Currently on amlodipine and chlorthalidone. Blood pressure well controlled today. Encouraged sodium reduction and increased physical activity. Assessment & Plan (11/20/2018 12:38 PM CDT): - Well-controlled today - Continue chlorthalidone and amlodipine - Encouraged diligence to low salt diet/exercise, hoping to avoid a third agent or increase dosage - Check CMP, UA today Closed fracture of distal end of ulna 01/17/2009 Resolved Problems Problem Noted Date Diagnosed Date Resolved Date Elevated liver enzymes 09/11/202409/11 Screen for STD (sexually transmitted disease) 03/14/20 18 09/18/2024 Assessment & Plan (11/20/2018 12:37 PM CDT): - Was GC throat positive January 2017 treated with Ceftriaxone and Azithromycin - Throat swab (re-screen) performed today - Patient declines rectal swab - Urine GC/CT and RPR performed today - Patient says he is not currently sexually active, but counseled on barrier protection as detailed above. Routine screening for STI (s exually transmitted infection) 07/27/2015 09/18/2024 Immunizations Immunization Administration Dates Next Due DTP 05/01/1991, 9,1986,08/10,1986 Hep A, Adult 02/15/2016,04/20/2015 Hep A, Unspecified 02/15/2016,04/20/2015 Hep B, Adolescent or Pediatric 12/15/1996,1996 Influenza, Quadrivalent, Dorota l Culture-based MDCK, Antibiotic Free, Intramuscular 07/15/2018 Influenza, Quadrivalent, Dorota l Culture-based MDCK, Preservative Free, Antibiotic Free, Intramuscular 08/02/2020 Influenza, Trivalent, IM (MDV) 08/06/2013 Influenza, Trivalent, Preser vative Free, Intramuscular 05/21/2017,06/06/2016 MMR 05/01/1991,12/19/1987 OPV 05/01/1991, 9,1986,08/10,1986 Pneumococcal Conjugate PCV 13 04/20/2015 Pneumococcal Polysaccharide PPV23 02/15/2016 Tdap 09/17/2013 Social History Tobacco Use Types Packs/Day Years Used Date Smoking Tobacco: Light Smoker PHQ-2 Answer Date Recorded PHQ-2 Total Score (If total score is 3 or more points, staff should administer the PHQ-9) 0 09/20/2020 Sex and Gender Information Value Date Recorded Sex Assigned at Not on file Legal Sex Male 5:35 AM SENIOR JAVA ARCHITECT Gender Identity Not on file Sexual Orientation Not on file Last Filed Vital Signs Vital Sign Reading Time Taken Comments Blood Pressure 124/90 09/11/2024 9:00 AM SENIOR JAVA ARCHITECT Pulse 96 09/11/2024 9:00 AM SENIOR JAVA ARCHITECT Temperature 36.7 C (98.1 F) 09/11/2024 9:00 AM SENIOR JAVA ARCHITECT Respiratory Rate - - Oxygen Saturation 96% 09/11/2024 9:00 AM SENIOR JAVA ARCHITECT Inhaled Oxygen Concentration - - Weight 82.7 kg (182 lb 6.4 oz) 09/11/2024 9:00 A M SENIOR JAVA ARCHITECT Height 172 cm (5' 7.72 ) 09/11/2024 9:00 AM SENIOR JAVA ARCHITECT Body Mass Index 27.97 09/11/2024 9:00 AM SENIOR JAVA ARCHITECT Plan of Treatment Not on file Procedures Procedure Name Priority Date/Time Associated Diagnosis Comments RPR Routine 08/03/2024 10:28 AM SENIOR JAVA ARCHITECT HIV infection, unspecified symptom status (HCC) Routine screening for STI (sexually transmitted infection) HEPATITIS C ANTIBODY Routine 11/01/2023 11:01 AM CDT HIV infection, unspecified symptom status (HCC) Routine screening for STI (sexually transmitted infection) HEMOGLOBIN A1C Routine 11/01/2023 11:01 AM CDT HIV infection, unspecified symptom status (HCC) LIPID PANEL Routine 11/01/2023 11:01 AM CDT HIV infection, unspecified symptom status (HCC) T-SPOT.TB Routine 11/01/2023 11:01 AM CDT HIV infection, unspecified symptom status (HCC) URINALYSIS WITH REFLEX FOR NEUTROPENIC PATIENT Routine 07/15/2018 11:34 AM SENIOR JAVA ARCHITECT HIV disease (HCC) HLA B*5701 TYPING Routine 08/06/2013 2:4 0 PM SENIOR JAVA ARCHITECT from Last 3 Months or Most Recently Relevant to Health Maintenance Results * (ABNORMAL) RPR Blood (08/03/2024 10:28 AM SENIOR JAVA ARCHITECT) RPR Reactive(A ) Nonreactive Blood 08/03/2024 10:2 8 AM SENIOR JAVA ARCHITECT 08/03/2024 2:11 PM SENIOR JAVA ARCHITECT [facility] MICROBIOLOGY - GENERAL ORDERABLES Final Result Performing Organization Address City/State/[facility] Co de Phone Number [facility] Department [place] [address] * T-SPOT.TB Blood (11/01/2023 11:01 AM CDT) T-SPOT.TB Negative SeeBelow Comment: Normal Value: Negative A negative test result does not exclude the possibility of exposure to or infection with Mycobacterium tuberculosis (M. tuberculosis). Patients with recent exposure to TB infected individuals exhibiting a negative T-SPOT.TB result should be considered for retesting within 6 weeks or if other relevant clinical symptoms indicate. Results from T-SPOT.TB testing must be used in conjunction with each individual's epidemiological history, current medical status, and results of other diagnostic evaluations. The T-SPOT.TB test is qualitative and results are reported as positive, borderline or negative, given that the test controls perform as expected. In line with the Centers for Disease Control and Prevention's 2010 recommendation to report quantitative measurements alongside the qualitative result, the laboratory provides spot counts for informational purposes only. The T-SPOT.TB test should not be interpreted as a quantitative test. T-SPOT.TB Panel A Spot Count 2 [facility] T-SPOT.TB Panel B Spot Count 0 [facility] T-SPOT.TB Negative Control Passed [facility] T-SPOT.TB Positive Control Passed [facility] Comment: Test Performed at: [facility] [address] [place] [id number] JILL BURNS,PHD Blood 11/01/2023 11:0 1 AM CDT 11/01/2023 2:37 PM CDT [facility] MICROBIOLOGY - GENERAL ORDERABLES Final Result Performing Organization Address City/[facility] Co de Phone Number [facility] Department [place] [address] * Hepatitis C antibody Blood (11/01/2023 11:01 AM CDT) [facility] Hep C Ab Nonreactive Nonreactive Comment:Antibodies to HCV no t detected. Does NOT exclude the possibility of recent exposure to HCV. Current interpretive data was last revised on 22 Blood 11/01/2023 11:0 1 AM CDT 11/01/2023 2:32 PM CDT [facility] MICROBIOLOGY - GENERAL ORDERABLES Final Result Performing Organization Address City/[facility] Co de Phone Number [facility] [place] [address] * Hemoglobin A1c (11/01/2023 11:01 AM CDT) [facility] Hgb A1C 5.1 4.0 - 5.6 % Estimated Average Glucose 100 mg/dL [facility] Comment: The ADA recommends reporting an estimated Average Glucose (eAG) with all Hemoglobin A1c results using the equation derived from a study of 507 normal and diabetic adults. Minority populations were underrepresented and children were not included. (Diabetes Care 2020; 43(S1): S66-S76). The eAG is not equivalent to a fasting glucose. Blood 11/01/2023 11:0 1 AM CDT 11/01/2023 2:32 PM CDT [facility] BLOOD ORDERABLES Final Result [facility] Department [place] [address] * (ABNORMAL) Lipid panel (11/01/2023 11:01 AM CDT) Cholesterol 132 30 - 199 mg/dL Comment: Interpretive Data Ages < or = 19 years Acceptable: <170 mg/dL Borderline high: 170-199 mg/dL High: >or= 200 mg/dL Ages > or = 20 years Desirable: <200 mg/dL Borderline high: 200-239 mg/dL High: >or= 240 mg/dL Literature References: 1. Expert Panel on Integrated Guidelines for Cardiovascular Health and Risk Reduction in Children and Adolescents. Pediatrics 2011;128:S213 2. NCEP Expert Panel. Circulation 2004;110:227 Current Interpretive Data was last revised on 2018. Triglycerides 159(H) <=149 mg/dL [facility] Comment: Interpretive Data Ages < or = 9 years Acceptable: <75 mg/dL Borderline high: 75-99 mg/dL High: >or= 100 mg/dL Ages 10 to 20 years Acceptable: <90 mg/dL Borderline high: 90-129 mg/dL High: >or= 130 mg/dL Ages > or = 20 years Desirable: <150 mg/dL Borderline high: 150-199 mg/dL High: 200-499 mg/dL Very high: >or= 499 mg/dL Literature References: 1. Expert Panel on Integrated Guidelines for Cardiovascular Health and Risk Reduction in Children and Adolescents. Pediatrics 2011;128:S213 2. NCEP Expert Panel. Circulation 2004;110:227 Current Interpretive Data was last revised on 2018. HDL 62 >=40 mg/dL [facility] Comment: Interpretive Data Ages < or = 19 years Acceptable: >45 mg/dL Borderline low: 40-45 mg/dL Low: <40 mg/dL Ages > or = 20 years Desirable: >or= 60 mg/dL Low: <40 mg/dL Literature References: 1. Expert Panel on Integrated Guidelines for Cardiovascular Health and Risk Reduction in Children and Adolescents. Pediatrics 2011;128:S213 2. NCEP Expert Panel. Circulation 2004;110:227 Current Interpretive Data was last revised on 2018. LDL, calculated 38 <=129 mg/dL [facility] Comment: Interpretive Data Ages < or = 19 years Acceptable: <110 mg/dL Borderline high: 110-129 mg/dL High: >or= 130 mg/dL Ages > or = 20 years Optimal: <100 mg/dL Near optimal: 100-129 mg/dL Borderline high: 130-159 mg/dL High: >160 mg/dL Literature References: 1. Expert Panel on Integrated Guidelines for Cardiovascular Health and Risk Reduction in Children and Adolescents. Pediatrics 2011;128:S213 2. NCEP Expert Panel. Circulation 2003;110:227 Current Interpretive Data was last revised on 2018. Non-HDL Cholesterol 70 mg/dL [facility] Comment: Interpretive Data Ages < or = 19 years Acceptable: <120 mg/dL Borderline high: 120-144 mg/dL High: >145 mg/dL Ages > or = 20 years When triglycerides are >200 mg/dL, Non-HDL cholesterol is a secondary target of therapy with treatment goals that are 30 mg/dL greater than the LDL cholesterol target. Literature References: 1. Expert Panel on Integrated Guidelines for Cardiovascular Health and Risk Reduction in Children and Adolescents. Pediatrics 2011;128:S213 2. NCEP Expert Panel. Circulation 2004;110:227 Current Interpretive Data was last revised on 2018. Chol/HDL ratio 2 [facility] Blood 11/01/2023 11:0 1 AM CDT 11/01/2023 2:32 PM CDT Timoteo LONG LAB BLOOD ORDERABLES Final Result [facility] One [facility] Department [place] [address] * (ABNORMAL) Urinalysis with reflex for neutropenic patient Urine (07/15/2018 11:34 AM SENIOR JAVA ARCHITECT) Color, ur Yellow Yellow CERNER BJ Clarity, ur Cloudy(A) Clear CERNER [facility] Specific gravity, ur 1.027(H) 1.010 - 1.025 CERNER BJ pH, urine 6.0 CERNER BJ Protein, ur ql 1+(A) Negative CERNER [facility]J Glucose, ur ql Negative Negative CERNER BJ Ketones, ur Negative Negative CERNER BJ Bilirubin, ur Negative Negative CERNER BJ Blood, ur Negative Negative [facility] Comment:Ascorbic acid identi fied in urine; possible false negative blood result. A microscopic exam will be added to identify RBCs. Urobilinogen, ur 4.0(A) <2.0 mg/dL [facility] Nitrite, ur Negative Negative CERNER [facility] Leukocyte esterase, ur Negative Negative CERNER [facility] Urine 07/15/2018 11:3 4 AM SENIOR JAVA ARCHITECT 07/15/2018 2:58 PM SENIOR JAVA ARCHITECT Narrative [facility] - 07/15/2018 3:27 PM SENIOR JAVA ARCHITECT Urine pH is affected by diet, medications, systemic acid-base disturbances, and renal tubular function. pH may affect urinary stone formation. For example, urine pH below 6.0 may help reduce the tendency for calcium phosphate stones and pH greater than 6.0 may reduce the tendency for uric acid stone formation. Source: [employer]. Last revised 08-29-2017 Timoteo LONG LAB MICROBIOLOGY - GENERAL ORDERABLES Final Result [facility] One [facility] Department [place] [address] * HLA B*5701 Typing (08/06/2013 2:40 PM SENIOR JAVA ARCHITECT) HLA B*5701 TYPING Negative QU EST HISTORICAL RESULTS Comment: The allele HLA-B*5701 is associated with Abacavir hypersensitivity reaction (HSR). A negative result for HLA-B*5701 does not rule out the possibility of Abacavir HSR. RESULTS REVIEWED BY: see note [facility] HISTORICAL RESULTS Comment: Waleska Leon, Ph.D.,D([facility]) Director, HLA and Immunogenetics References: Stewart S. et al. Lancet. 2002 Oct 2; 359 (2363): 046-97 Brooke Hodge. Clin. Inf. Dis. 2005; 43 (1): 99-102. Typing performed by PCR and hybridization with sequence specific oligonucleotide probes (SSO). 08/06/2013 2:40 PM SENIOR JAVA ARCHITECT us Aisha Pena MD LAB BLOOD ORDERABLES Final Resu lt [facility] HISTORICAL RESULTS from Last 3 Months or Most Recently Relevant to Health Maintenance Insurance [employer] PPO [employer] [id number] [place] [address] Care Teams Spool Salvager Relationship Specialty Start Date End Date No, Physician PCP - General 03/14/18 Maris Helm Senior Software Test Engineer Infectious Diseases 01/15/18
--- OUTSIDE RECORDS SUMMARY | 2024-12-11 13:07 | XMS_ITS | Clinical Summary ---
Author Organization [facility] Address [address] [place] [address] Care Team Providers Care Director Machine Name Role Phone No, Physician Primary Care Provider [phone] Allergies No known active allergies Medications Cabenuva [...] 09/11/2024 Assessment & Plan (09/11/2024 9:47 AM PRINCIPAL ARCHITECTURAL FIRM): Hx of Gastric Sleeve surgery in 10/22/2020 in [place], with subsequent ~100 lb weight loss. Takes [...] 09/11/2024 Assessment & Plan (09/11/2024 9:50 AM PRINCIPAL ARCHITECTURAL FIRM): Patient noted to have elevated AST to [...] RNA now that patient has transitioned to Cabuva Assessment & Plan (11/15/2023 3:48 PM CDT): Routine lab monitoring on retirement HIV meds to assess for drug toxicity and efficacy. Assessment & Plan (07/05/2023 9:31 AM PRINCIPAL ARCHITECTURAL FIRM): Routine lab monitoring on retirement HIV meds to assess for drug toxicity and efficacy. Assessment & Plan (09/07/2022 9:40 PM PRINCIPAL ARCHITECTURAL FIRM): Routine lab monitoring on retirement HIV meds to assess for drug toxicity and efficacy. Assessment & Plan (03/05/2022 9:48 PM CDT): Routine lab monitoring on exterminator termite HIV meds to assess for drug toxicity and efficacy. Assessment & Plan (09/08/2021 11:14 AM PRINCIPAL ARCHITECTURAL FIRM): Routine lab monitoring on exterminator termite HIV meds to assess for drug toxicity and efficacy. Assessment & Plan (03/18/2021 7:42 PM CDT): Routine lab monitoring on retirement HIV meds to assess for drug toxicity and efficacy. Assessment & Plan (08/14/2020 11:24 AM PRINCIPAL ARCHITECTURAL FIRM): Routine lab monitoring on exterminator termite HIV meds to assess for drug toxicity and efficacy. Assessment & Plan (03/17/2020 12:20 PM CDT): Routine lab monitoring on retirement HIV meds to assess for drug toxicity [...] 11/20/2018 Assessment & Plan (09/11/2024 9:42 AM PRINCIPAL ARCHITECTURAL FIRM): Patient was diagnosed in HIV in 2010, [...] provided. Assessment & Plan (07/05/2023 9:30 AM PRINCIPAL ARCHITECTURAL FIRM): Patient would like to consider Cabenuva- test claim sent today Will continue Genvoya in the meantime. 100% adherence encouraged to maintain viral suppression and prevent resistance. Undetectable = untransmittable. Counseling for risk reduction, adherence and pre-conception provided. Assessment & Plan (09/07/2022 9:40 PM PRINCIPAL ARCHITECTURAL FIRM): Continue Genvoya 100% adherence encouraged to maintain [...] provided. Assessment & Plan (09/08/2021 11:14 AM PRINCIPAL ARCHITECTURAL FIRM): Continue Genvoya 100% adherence encouraged to maintain viral suppression and prevent resistance. Undetectable = untransmittable. Counseling for risk reduction, adherence and pre-conception provided. Assessment & Plan (03/18/2021 7:41 PM CDT): Continue Genvoya 100% adherence encouraged to maintain viral suppression and prevent resistance. Undetectable = untransmittable. Counseling for risk reduction, adherence and pre-conception provided. Assessment & Plan (08/14/2020 11:24 AM PRINCIPAL ARCHITECTURAL FIRM): Continue Genvoya 100% adherence encouraged to maintain [...] with food - Routine lab monitoring on exterminator termite HIV meds: CBC, CMP, CD4, VL to assess drug toxicity/efficacy - Safer sex measures reviewed - Undetectable = untransmittable History of syphilis 11/20/2018 Assessment & Plan (09/11/2024 9:43 AM PRINCIPAL ARCHITECTURAL FIRM): Diagnosed with syphilis with RPR titer 1:64 [...] 11/20/2018 Assessment & Plan (09/11/2024 9:41 AM PRINCIPAL ARCHITECTURAL FIRM): Hx of elevated RBC in setting of [...] 02/11/2017 Assessment & Plan (09/11/2024 9:44 AM PRINCIPAL ARCHITECTURAL FIRM): Currently down to smoking 1 pack per week, interested in quitting entirely. - Gave patient smoking cessation resources including [place] [employer] information. - Offered patient nicotine replacement therapy but he declined given concern for strange dreams, would like to continue weaning down in aim to quit cold turkey. Assessment & Plan (11/20/2018 12:40 PM CDT): - Now down to 1 cig/day - Patient trying to quit using nicotine gum Hyperlipidemia 10/26/2015 Assessment & Plan (09/11/2024 9:39 AM PRINCIPAL ARCHITECTURAL FIRM): Patient has history of elevated Triglycerides of [...] 08/06/2013 Assessment & Plan (09/11/2024 10:27 AM PRINCIPAL ARCHITECTURAL FIRM): Patient's BP well-controlled in clinic today. - Refilling patient's Amlodipine 2.5mg daily Assessment & Plan (09/07/2022 9:43 PM PRINCIPAL ARCHITECTURAL FIRM): Continue amlodipine Well controlled- Repeat 140/90 Assessment & Plan (03/05/2022 9:52 PM CDT): In the past, his BP normalized after his gastric sleeve surgery. However it appears to be elevating again. Discussed restarting one of his BP meds. Previously on amlodipine 5mg.Will restart at amlodipine 2.5mg daily. Patient is agreeable to this plan. Assessment & Plan (09/08/2021 11:16 AM PRINCIPAL ARCHITECTURAL FIRM): He had stopped BP meds after his [...] STI (s exually transmitted infection) 07/27/2015 09/18/2024 Encounters Date Type Department Care Team Description 10/15/2024 Telephone [facility] Infectious Diseases [address] [place] [address] [phone] Gurwinder Buckner CMA Cabenuva Injection 09/25/2024 Orders Only [facility] Infectious Diseases [address] [place] [address] [address] [place] [id number] Timoteo Ramos PA Transaminitis (Primary Dx) from Last 3 Months Immunizations Immunization Administration Dates Next Due DTP [...] 04/20/2015 Pneumococcal Polysaccharide PPV23 02/15/2016 Tdap 09/17/2013 Surgical History Surgery Date Site/Laterality Comments LUMBAR PUNCTURE WO INJECTION, DIAGNOSTIC 09/03/2013 N/A Social History Tobacco Use Types Packs/Day Years Used Date Smoking Tobacco: Light Smoker PHQ-2 Answer Date Recorded PHQ-2 Total Score (If total score is 3 or more points, staff should administer the PHQ-9) 0 09/20/2020 Sex and Gender Information Value Date Recorded Sex Assigned at Not on file Legal Sex Male 5:35 AM PRINCIPAL ARCHITECTURAL FIRM Gender Identity Not on file Sexual Orientation Not on file Obstetrics History Last Filed Vital Signs Vital Sign Reading Time Taken Comments Blood Pressure 124/90 09/11/2024 9:00 AM PRINCIPAL ARCHITECTURAL FIRM Pulse 96 09/11/2024 9:00 AM PRINCIPAL ARCHITECTURAL FIRM Temperature 36.7 C (98.1 F) 09/11/2024 9:00 AM PRINCIPAL ARCHITECTURAL FIRM Respiratory Rate - - Oxygen Saturation 96% 09/11/2024 9:00 AM PRINCIPAL ARCHITECTURAL FIRM Inhaled Oxygen Concentration - - Weight 82.7 kg (182 lb 6.4 oz) 09/11/2024 9:00 A M PRINCIPAL ARCHITECTURAL FIRM Height 172 cm (5' 7.72 ) 09/11/2024 9:00 AM PRINCIPAL ARCHITECTURAL FIRM Body Mass Index 27.97 09/11/2024 9:00 AM PRINCIPAL ARCHITECTURAL FIRM Plan of Treatment Health Maintenance Due Date Last Done Comments Hepatitis B Vaccines (3 of 3 - 3-dose series) 02/09/1997 12/15/1996, 09/16/1996 Varicella Vaccines (1 of 2 - 13+ 2-dose series) 1999 G6PD 2004 Regular Well Visit/Exam 18-64 2004 Zoster Vaccine (1 of 2) 2005 Proteinuria screening Urinalysis (UA) 07/15/2019 07/15/2018, 07/15/2018, 12/03/2016, Additional history exists Pneumococcal vaccine <65 (3 of 3 - PPSV23, PCV20 or PCV21) 02/14/2021 02/15/2016, 04/20/2015 Depression Screening 09/20/2021 09/20/2020, 05/26/20 19 DTaP/Tdap/Td Vaccine (7 - Td or Tdap) 09/17/2023 09/17/2013, 05/01/1991, 03/07/1989, Additional history exists Hemoglobin A1C 10/31/2024 11/01/2023, 08/19, 08/29/2021, Additional history exists Hepatitis C Screening 10/31/2024 11/01/2023 , 09/05/2022, 08/29/2021, Additional history exists Lipid Panel 10/31/2024 11/01/2023, 08/19, 08/29/2021, Additional history exists T Spot (quantiferon gold) 10/31/20242023, 09/05/2022, 08/29/2021, Additional history exists Influenza Vaccine (Season Ended) 2025 08/02/2020, 07/15/2018, 05/21/2017, Additional history exists RPR Screening 08/03/2025 08/03/2024, 12/19, 11/01/2023, Additional history exists HIV + Chlamydia and Gonorrhea Screening (Urine) 08/04/2025 08/04/2024 HIV+ Chlamydia and Gonorrhea Screening (Rectal) 08/04/2025 08/04/2024 HIV+ Chlamydia and Gonorrhea Screening (Throat) 08/04/2025 08/04/2024 HLA B 5701 Typing Completed 08/06/2013 Hepatitis A Vaccines Completed 02/15/2016, 02/15/2016, 04/20/2015, Additional history exists HPV Vaccines Aged Out No longer eligi ble based on patient's age to complete this topic Procedures Procedure Name Priority Date/Time Associated Diagnosis Comments RPR Routine 08/03/2024 10:28 AM PRINCIPAL ARCHITECTURAL FIRM HIV infection, unspecified symptom status (HCC) Routine [...] FOR NEUTROPENIC PATIENT Routine 07/15/2018 11:34 AM PRINCIPAL ARCHITECTURAL FIRM HIV disease (HCC) HLA B*5701 TYPING Routine 08/06/2013 2:4 0 PM PRINCIPAL ARCHITECTURAL FIRM from Last 3 Months or Most Recently Relevant to Health Maintenance Results * (ABNORMAL) RPR Blood (08/03/2024 10:28 AM PRINCIPAL ARCHITECTURAL FIRM) RPR Reactive(A ) Nonreactive Blood 08/03/2024 10:2 8 AM PRINCIPAL ARCHITECTURAL FIRM 08/03/2024 2:11 PM PRINCIPAL ARCHITECTURAL FIRM Timoteo LONG LAB MICROBIOLOGY - GENERAL ORDERABLES Final Result Performing Organization Address City/State/[facility] Co de Phone Number [facility] One [facility] [place] [address] * T-SPOT.TB Blood (11/01/2023 11:01 AM CDT) [...] test. T-SPOT.TB Panel A Spot Count 2 [facility] T-SPOT.TB Panel B Spot Count 0 [facility] T-SPOT.TB Negative Control Passed [facility] T-SPOT.TB Positive Control Passed [facility] Comment: Test Performed at: [employer] [facility] [address] [place] [id number] JILL BURNS,PHD Blood 11/01/2023 11:0 1 AM CDT 11/01/2023 2:37 PM CDT Timoteo LONG LAB MICROBIOLOGY - GENERAL ORDERABLES Final Result [facility] [place] [address] * Hepatitis C antibody Blood (11/01/2023 11:01 AM CDT) [facility] Hep C Ab Nonreactive Nonreactive Comment:Antibodies to HCV no t detected. Does NOT exclude the possibility of recent exposure to HCV. Current interpretive data was last revised on 22 Blood 11/01/2023 11:0 1 AM CDT 11/01/2023 2:32 PM CDT Timoteo LONG LAB MICROBIOLOGY - GENERAL ORDERABLES Final Result [facility] [place] [address] * Hemoglobin A1c (11/01/2023 11:01 AM CDT) Hgb A1C 5.1 4.0 - 5.6 % Estimated Average Glucose 100 mg/dL [facility] Comment: The ADA recommends reporting an estimated Average Glucose (eAG) with all Hemoglobin A1c results using the equation derived from a study of 507 normal and diabetic adults. Minority populations were underrepresented and children were not included. (Diabetes Care 2020; 43(S1): S66-S76). The eAG is not equivalent to a fasting glucose. Blood 11/01/2023 11:0 1 AM CDT 11/01/2023 2:32 PM CDT us Timoteo LONG LAB BLOOD ORDERABLES Final Result [facility] One [facility] [place] [address] * (ABNORMAL) Lipid panel (11/01/2023 11:01 AM CDT) Pathologist [facility] Cholesterol 132 30 - 199 mg/dL Comment: [...] revised on 2018. Triglycerides 159(H) <=149 mg/dL [facility] Comment: Interpretive Data Ages < or [...] on 2018. HDL 62 >=40 mg/dL [facility] Comment: Interpretive Data Ages < or = [...] on 2018. LDL, calculated 38 <=129 mg/dL [facility] Comment: Interpretive Data Ages < or = [...] revised on 2018. Non-HDL Cholesterol 70 mg/dL [facility] Comment: Interpretive Data Ages < or = [...] last revised on 2018. Chol/HDL ratio 2 [facility] Blood 11/01/2023 11:0 1 AM CDT 11/01/2023 2:32 PM CDT Timoteo LONG LAB BLOOD ORDERABLES Final Result [facility] [place] [address] * (ABNORMAL) Urinalysis with reflex for neutropenic patient Urine (07/15/2018 11:34 AM PRINCIPAL ARCHITECTURAL FIRM) Color, ur Yellow Yellow CERNER [facility] Clarity, ur Cloudy(A) Clear [facility] Specific gravity, ur 1.027(H) 1.010 - 1.025 [facility] pH, urine 6.0 [facility] Protein, ur ql 1+(A) Negative CERNER BJ Glucose, ur ql Negative Negative [facility] Ketones, ur Negative Negative CERNER [facility]J Bilirubin, ur Negative Negative CERNER [facility] Blood, ur Negative Negative [facility]ER [facility] Comment:Ascorbic acid identi fied in urine; possible false negative blood result. A microscopic exam will be added to identify RBCs. Urobilinogen, ur 4.0(A) <2.0 mg/dL [facility] Nitrite, ur Negative Negative [facility] Leukocyte esterase, ur Negative Negative CERNER BJ Urine 07/15/2018 11:3 4 AM PRINCIPAL ARCHITECTURAL FIRM 07/15/2018 2:58 PM PRINCIPAL ARCHITECTURAL FIRM Narrative [facility] - 07/15/2018 3:27 PM PRINCIPAL ARCHITECTURAL FIRM Urine pH is affected by diet, medications, systemic acid-base disturbances, and renal tubular function. pH may affect urinary stone formation. For example, urine pH below 6.0 may help reduce the tendency for calcium phosphate stones and pH greater than 6.0 may reduce the tendency for uric acid stone formation. Source: [facility]. Last revised 08-29-2017 Timoteo LONG LAB MICROBIOLOGY - GENERAL ORDERABLES Final Result [facility] [place] [address] * HLA B*5701 Typing (08/06/2013 2:40 PM PRINCIPAL ARCHITECTURAL FIRM) HLA B*5701 TYPING Negative QU EST HISTORICAL RESULTS Comment: The allele HLA-B*5701 is associated with Abacavir hypersensitivity reaction (HSR). A negative result for HLA-B*5701 does not rule out the possibility of Abacavir HSR. RESULTS REVIEWED BY: see note [facility] HISTORICAL RESULTS Comment: Waleska Leon, Ph.D.,D([facility]) Director, HLA and Immunogenetics References: Stewart S. et al. Lancet. 2002 Oct 2; 359 (2476): 614-32 Brooke Hodge. Clin. Inf. Dis. 2005; 43 (1): 99-102. Typing performed by PCR and hybridization with sequence specific oligonucleotide probes (SSO). 08/06/2013 2:40 PM PRINCIPAL ARCHITECTURAL FIRM Aisha Pena MD LAB BLOOD ORDERABLES Final Resu lt [facility] HISTORICAL RESULTS from Last 3 Months or Most Recently Relevant to Health Maintenance Insurance [employer] [facility] [employer] PPO [employer] [id number] [place] [address] Care Teams Director Machine Relationship Specialty Start Date End Date No, Physician PCP - General 03/14/18 Maris Helm Quality Assurance Tester Infectious Diseases 01/15/18
--- OUTSIDE RECORDS SUMMARY | 2024-12-11 13:07 | XMS_ITS | Clinical Summary ---
Author Organization [facility] Address [facility] [place] [address] Care Team Providers Care Bakery Team Member Name Role Phone Unavailable Primary Care Provider Unavailabl e Social History Tobacco Use Types Packs/Day Years Used Date Smoking Tobacco: Never Assessed Sex and Gender Information Value Date Recorded Sex Assigned at Not on file Legal Sex Male 4:27 PM CDT Gender Identity Not on file Sexual Orientation Not on file Plan of Treatment Health Maintenance Due Date Last Done Comments Annual Physical 1989 Hepatitis C 2004 DTaP, Tdap and Td Vaccines ( 1 - Tdap) 2005 Hepatitis B Vaccines (1 of 3 - 19+ 3-dose series) 2005 COVID-19 Vaccine (2023-2 5 season) 2024 HPV Vaccines Aged Out No longer eligi ble based on patient's age to complete this topic Meningococcal B Vaccine Aged Out No l onger eligible based on patient's age to complete this topic Meningococcal Vaccine Aged Out No amanda yaquelin eligible based on patient's age to complete this topic Pneumococcal Vaccine: Pediat rics (0 to 5 Years) and At-Risk Patients (6 to 49 Years) Aged Out No longer eligible b ased on patient's age to complete this topic RSV Immunizations Under 20 Months Aged Out No longer eligible based on patient's age to complete this topic
--- OUTSIDE RECORDS SUMMARY | 2024-12-11 14:04 | XMS_ITS | Clinical Summary ---
Author Organization [facility] Address [address] [place] [address] Care Team Providers Care Lagging Machine Operator Name Role Phone No, Physician Primary Care Provider [phone] Allergies No known active allergies Medications Cabenuva [...] 09/11/2024 Assessment & Plan (09/11/2024 9:47 AM UTILITY LOCATE TECHNICIAN): Hx of Gastric Sleeve surgery in 10/22/2020 in [place], with subsequent ~100 lb weight loss. Takes [...] 09/11/2024 Assessment & Plan (09/11/2024 9:50 AM UTILITY LOCATE TECHNICIAN): Patient noted to have elevated AST to [...] 3:48 PM CDT): Routine lab monitoring on jail HIV meds to assess for drug toxicity and efficacy. Assessment & Plan (07/05/2023 9:31 AM UTILITY LOCATE TECHNICIAN): Routine lab monitoring on jail HIV meds to assess for drug toxicity and efficacy. Assessment & Plan (09/07/2022 9:40 PM UTILITY LOCATE TECHNICIAN): Routine lab monitoring on jail HIV meds to assess for drug toxicity and efficacy. Assessment & Plan (03/05/2022 9:48 PM CDT): Routine lab monitoring on exterminator helper HIV meds to assess for drug toxicity and efficacy. Assessment & Plan (09/08/2021 11:14 AM UTILITY LOCATE TECHNICIAN): Routine lab monitoring on exterminator helper HIV meds to assess for drug toxicity and efficacy. Assessment & Plan (03/18/2021 7:42 PM CDT): Routine lab monitoring on jail HIV meds to assess for drug toxicity and efficacy. Assessment & Plan (08/14/2020 11:24 AM UTILITY LOCATE TECHNICIAN): Routine lab monitoring on exterminator helper HIV meds to assess for drug toxicity and efficacy. Assessment & Plan (03/17/2020 12:20 PM CDT): Routine lab monitoring on jail HIV meds to assess for drug toxicity [...] 11/20/2018 Assessment & Plan (09/11/2024 9:42 AM UTILITY LOCATE TECHNICIAN): Patient was diagnosed in HIV in 2010, [...] provided. Assessment & Plan (07/05/2023 9:30 AM UTILITY LOCATE TECHNICIAN): Patient would like to consider Cabenuva- test claim sent today Will continue Genvoya in the meantime. 100% adherence encouraged to maintain viral suppression and prevent resistance. Undetectable = untransmittable. Counseling for risk reduction, adherence and pre-conception provided. Assessment & Plan (09/07/2022 9:40 PM UTILITY LOCATE TECHNICIAN): Continue Genvoya 100% adherence encouraged to maintain [...] provided. Assessment & Plan (09/08/2021 11:14 AM UTILITY LOCATE TECHNICIAN): Continue Genvoya 100% adherence encouraged to maintain viral suppression and prevent resistance. Undetectable = untransmittable. Counseling for risk reduction, adherence and pre-conception provided. Assessment & Plan (03/18/2021 7:41 PM CDT): Continue Genvoya 100% adherence encouraged to maintain viral suppression and prevent resistance. Undetectable = untransmittable. Counseling for risk reduction, adherence and pre-conception provided. Assessment & Plan (08/14/2020 11:24 AM UTILITY LOCATE TECHNICIAN): Continue Genvoya 100% adherence encouraged to maintain [...] food - Routine lab monitoring on exterminator helper HIV meds: CBC, CMP, CD4, VL to assess drug toxicity/efficacy - Safer sex measures reviewed - Undetectable = untransmittable History of syphilis 11/20/2018 Assessment & Plan (09/11/2024 9:43 AM UTILITY LOCATE TECHNICIAN): Diagnosed with syphilis with RPR titer 1:64 [...] 11/20/2018 Assessment & Plan (09/11/2024 9:41 AM UTILITY LOCATE TECHNICIAN): Hx of elevated RBC in setting of [...] 02/11/2017 Assessment & Plan (09/11/2024 9:44 AM UTILITY LOCATE TECHNICIAN): Currently down to smoking 1 pack per [...] 10/26/2015 Assessment & Plan (09/11/2024 9:39 AM UTILITY LOCATE TECHNICIAN): Patient has history of elevated Triglycerides of [...] 08/06/2013 Assessment & Plan (09/11/2024 10:27 AM UTILITY LOCATE TECHNICIAN): Patient's BP well-controlled in clinic today. - Refilling patient's Amlodipine 2.5mg daily Assessment & Plan (09/07/2022 9:43 PM UTILITY LOCATE TECHNICIAN): Continue amlodipine Well controlled- Repeat 140/90 Assessment & Plan (03/05/2022 9:52 PM CDT): In the past, his BP normalized after his gastric sleeve surgery. However it appears to be elevating again. Discussed restarting one of his BP meds. Previously on amlodipine 5mg.Will restart at amlodipine 2.5mg daily. Patient is agreeable to this plan. Assessment & Plan (09/08/2021 11:16 AM UTILITY LOCATE TECHNICIAN): He had stopped BP meds after his [...] Type Department Care Team Description 10/15/2024 Telephone [facility] [address] [place] [address] [phone] Gurwinder Buckner CMA Cabenuva Injection 09/25/2024 Orders Only [facility] [address] [place] [address] [address] [place] [phone] Timoteo Ramos PA Transaminitis (Primary Dx) from [...] on file Legal Sex Male 5:35 AM UTILITY LOCATE TECHNICIAN Gender Identity Not on file Sexual Orientation Not on file Obstetrics History Last Filed Vital Signs Vital Sign Reading Time Taken Comments Blood Pressure 124/90 09/11/2024 9:00 AM UTILITY LOCATE TECHNICIAN Pulse 96 09/11/2024 9:00 AM UTILITY LOCATE TECHNICIAN Temperature 36.7 C (98.1 F) 09/11/2024 9:00 AM UTILITY LOCATE TECHNICIAN Respiratory Rate - - Oxygen Saturation 96% 09/11/2024 9:00 AM UTILITY LOCATE TECHNICIAN Inhaled Oxygen Concentration - - Weight 82.7 kg (182 lb 6.4 oz) 09/11/2024 9:00 A M UTILITY LOCATE TECHNICIAN Height 172 cm (5' 7.72 ) 09/11/2024 9:00 AM UTILITY LOCATE TECHNICIAN Body Mass Index 27.97 09/11/2024 9:00 AM UTILITY LOCATE TECHNICIAN Plan of Treatment Health Maintenance Due Date [...] Diagnosis Comments RPR Routine 08/03/2024 10:28 AM UTILITY LOCATE TECHNICIAN HIV infection, unspecified symptom status (HCC) Routine [...] FOR NEUTROPENIC PATIENT Routine 07/15/2018 11:34 AM UTILITY LOCATE TECHNICIAN HIV disease (HCC) HLA B*5701 TYPING Routine 08/06/2013 2:4 0 PM UTILITY LOCATE TECHNICIAN from Last 3 Months or Most Recently Relevant to Health Maintenance Results * (ABNORMAL) RPR Blood (08/03/2024 10:28 AM UTILITY LOCATE TECHNICIAN) RPR Reactive(A ) Nonreactive Blood 08/03/2024 10:2 8 AM UTILITY LOCATE TECHNICIAN 08/03/2024 2:11 PM UTILITY LOCATE TECHNICIAN Timoteo LONG LAB MICROBIOLOGY - GENERAL ORDERABLES Final Result Performing Organization Address City/State/[facility] Co de Phone Number [facility] [place] [address] * T-SPOT.TB Blood (11/01/2023 11:01 AM CDT) [...] test. T-SPOT.TB Panel A Spot Count 2 [facility] T-SPOT.TB Panel B Spot Count 0 [facility] T-SPOT.TB Negative Control Passed [facility] T-SPOT.TB Positive Control Passed [facility] Comment: Test Performed at: [employer] [address] [place] [phone] JILL BURNS,PHD Blood 11/01/2023 11:0 1 AM CDT 11/01/2023 2:37 PM CDT Timoteo LONG LAB MICROBIOLOGY - GENERAL ORDERABLES Final Result [facility] [place] [employer] [place] [address] * Hepatitis C antibody Blood (11/01/2023 11:01 AM CDT) [facility] Hep C Ab Nonreactive Nonreactive Comment:Antibodies to HCV no t detected. Does NOT exclude the possibility of recent exposure to HCV. Current interpretive data was last revised on 22 Blood 11/01/2023 11:0 1 AM CDT 11/01/2023 2:32 PM CDT Timoteo LONG LAB MICROBIOLOGY - GENERAL ORDERABLES Final Result [facility] [place] [address] * Hemoglobin A1c (11/01/2023 11:01 AM CDT) Hgb A1C 5.1 4.0 - 5.6 % Estimated Average Glucose 100 mg/dL [facility] Comment: The ADA recommends reporting an estimated [...] Timoteo LONG LAB BLOOD ORDERABLES Final Result [facility] One [facility] [place] [address] * (ABNORMAL) Lipid panel (11/01/2023 11:01 AM CDT) Pathologist [facility] Cholesterol 132 30 - 199 mg/dL Comment: [...] revised on 2018. Triglycerides 159(H) <=149 mg/dL [facility] Comment: Interpretive Data Ages < or [...] on 2018. HDL 62 >=40 mg/dL [facility] Comment: Interpretive Data Ages < or = [...] on 2018. LDL, calculated 38 <=129 mg/dL [facility] Comment: Interpretive Data Ages < or = [...] revised on 2018. Non-HDL Cholesterol 70 mg/dL [facility] Comment: Interpretive Data Ages < or = [...] last revised on 2018. Chol/HDL ratio 2 [facility] Blood 11/01/2023 11:0 1 AM CDT 11/01/2023 2:32 PM CDT Timoteo LONG LAB BLOOD ORDERABLES Final Result [facility] [place] [address] * (ABNORMAL) Urinalysis with reflex for neutropenic patient Urine (07/15/2018 11:34 AM UTILITY LOCATE TECHNICIAN) Color, ur Yellow Yellow CERNER BJ Clarity, ur Cloudy(A) Clear [facility]ER [facility] Specific gravity, ur 1.027(H) 1.010 - 1.025 CERNER [facility] pH, urine 6.0 CERNER [facility] Protein, ur ql 1+(A) Negative CERNER BJ Glucose, ur ql Negative Negative CERNER [facility] Ketones, ur Negative Negative CERNER B[facility] Bilirubin, ur Negative Negative CERNER BJ Blood, ur Negative Negative [facility]ERNER [facility] Comment:Ascorbic acid identi fied in urine; possible false negative blood result. A microscopic exam will be added to identify RBCs. Urobilinogen, ur 4.0(A) <2.0 mg/dL CERNER [facility] Nitrite, ur Negative Negative CERNER [facility] Leukocyte esterase, ur Negative Negative CERNER BJ Urine 07/15/2018 11:3 4 AM UTILITY LOCATE TECHNICIAN 07/15/2018 2:58 PM UTILITY LOCATE TECHNICIAN Narrative [facility] - 07/15/2018 3:27 PM UTILITY LOCATE TECHNICIAN Urine pH is affected by diet, medications, systemic acid-base disturbances, and renal tubular function. pH may affect urinary stone formation. For example, urine pH below 6.0 may help reduce the tendency for calcium phosphate stones and pH greater than 6.0 may reduce the tendency for uric acid stone formation. Source: [facility] [employer]. Last revised 08-29-2017 Timoteo LONG LAB MICROBIOLOGY - GENERAL ORDERABLES Final Result [facility] [place] [address] * HLA B*5701 Typing (08/06/2013 2:40 PM UTILITY LOCATE TECHNICIAN) HLA B*5701 TYPING Negative QU EST HISTORICAL RESULTS Comment: The allele HLA-B*5701 is associated with Abacavir hypersensitivity reaction (HSR). A negative result for HLA-B*5701 does not rule out the possibility of Abacavir HSR. RESULTS REVIEWED BY: see note [facility] HISTORICAL RESULTS Comment: Waleska Leon, Ph.D.,D([facility]) Director, HLA and Immunogenetics References: Stewart S. et al. Lancet. 2002 Oct 2; 359 (3268): 713-32 Brooke Hodge. Clin. Inf. Dis. 2005; 43 (1): 99-102. Typing performed by PCR and hybridization with sequence specific oligonucleotide probes (SSO). 08/06/2013 2:40 PM UTILITY LOCATE TECHNICIAN Aisha Pena MD LAB BLOOD ORDERABLES Final Resu lt [facility] HISTORICAL RESULTS from Last 3 Months or Most Recently Relevant to Health Maintenance Insurance [employer] [facility] [employer] P[employer] [place] [id number] [address] [place] [address] Care Teams Lagging Machine Operator Relationship Specialty Start Date End Date No, Physician PCP - General 03/14/18 Maris Helm Mechanical Engineering Draftsperson Infectious Diseases 01/15/18
--- OUTSIDE RECORDS SUMMARY | 2024-12-11 14:04 | XMS_ITS | Referral Summary ---
Author Organization [facility] Address [address] [place] [address] Care Team Providers Care Strip Cutter Name Role Phone No, Physician Primary Care Provider [phone] Encounters Date Type Department Care Team Description 10/15/2024 Telephone [facility] Infectious Diseases [address] [place] [address] [place] [phone] Gurwinder Buckner CMA Cabenuva Injection 09/25/2024 Orders Only [facility] Infectious Diseases [address] [place] [phone] Timoteo Ramos PA Transaminitis (Primary Dx) [...] 09/11/2024 Assessment & Plan (09/11/2024 9:47 AM SAMPLE PASTER): Hx of Gastric Sleeve surgery in 10/22/2020 in [place], with subsequent ~100 lb weight loss. Takes [...] 09/11/2024 Assessment & Plan (09/11/2024 9:50 AM SAMPLE PASTER): Patient noted to have elevated AST to [...] 3:48 PM CDT): Routine lab monitoring on long line teamster HIV meds to assess for drug toxicity and efficacy. Assessment & Plan (07/05/2023 9:31 AM SAMPLE PASTER): Routine lab monitoring on fdc HIV meds to assess for drug toxicity and efficacy. Assessment & Plan (09/07/2022 9:40 PM SAMPLE PASTER): Routine lab monitoring on fdc HIV meds to assess for drug toxicity and efficacy. Assessment & Plan (03/05/2022 9:48 PM CDT): Routine lab monitoring on long line teamster HIV meds to assess for drug toxicity and efficacy. Assessment & Plan (09/08/2021 11:14 AM SAMPLE PASTER): Routine lab monitoring on fdc HIV meds to assess for drug toxicity and efficacy. Assessment & Plan (03/18/2021 7:42 PM CDT): Routine lab monitoring on fdc HIV meds to assess for drug toxicity and efficacy. Assessment & Plan (08/14/2020 11:24 AM SAMPLE PASTER): Routine lab monitoring on long line teamster HIV meds to assess for drug toxicity and efficacy. Assessment & Plan (03/17/2020 12:20 PM CDT): Routine lab monitoring on fdc HIV meds to assess for drug toxicity [...] 11/20/2018 Assessment & Plan (09/11/2024 9:42 AM SAMPLE PASTER): Patient was diagnosed in HIV in 2010, [...] provided. Assessment & Plan (07/05/2023 9:30 AM SAMPLE PASTER): Patient would like to consider Cabenuva- test claim sent today Will continue Genvoya in the meantime. 100% adherence encouraged to maintain viral suppression and prevent resistance. Undetectable = untransmittable. Counseling for risk reduction, adherence and pre-conception provided. Assessment & Plan (09/07/2022 9:40 PM SAMPLE PASTER): Continue Genvoya 100% adherence encouraged to maintain [...] provided. Assessment & Plan (09/08/2021 11:14 AM SAMPLE PASTER): Continue Genvoya 100% adherence encouraged to maintain viral suppression and prevent resistance. Undetectable = untransmittable. Counseling for risk reduction, adherence and pre-conception provided. Assessment & Plan (03/18/2021 7:41 PM CDT): Continue Genvoya 100% adherence encouraged to maintain viral suppression and prevent resistance. Undetectable = untransmittable. Counseling for risk reduction, adherence and pre-conception provided. Assessment & Plan (08/14/2020 11:24 AM SAMPLE PASTER): Continue Genvoya 100% adherence encouraged to maintain [...] with food - Routine lab monitoring on fdc HIV meds: CBC, CMP, CD4, VL to assess drug toxicity/efficacy - Safer sex measures reviewed - Undetectable = untransmittable History of syphilis 11/20/2018 Assessment & Plan (09/11/2024 9:43 AM SAMPLE PASTER): Diagnosed with syphilis with RPR titer 1:64 [...] 11/20/2018 Assessment & Plan (09/11/2024 9:41 AM SAMPLE PASTER): Hx of elevated RBC in setting of [...] 02/11/2017 Assessment & Plan (09/11/2024 9:44 AM SAMPLE PASTER): Currently down to smoking 1 pack per week, interested in quitting entirely. - Gave patient smoking cessation resources including [place] Quit[facility] information. - Offered patient nicotine replacement therapy but he declined given concern for strange dreams, would like to continue weaning down in aim to quit cold turkey. Assessment & Plan (11/20/2018 12:40 PM CDT): - Now down to 1 cig/day - Patient trying to quit using nicotine gum Hyperlipidemia 10/26/2015 Assessment & Plan (09/11/2024 9:39 AM SAMPLE PASTER): Patient has history of elevated Triglycerides of [...] 08/06/2013 Assessment & Plan (09/11/2024 10:27 AM SAMPLE PASTER): Patient's BP well-controlled in clinic today. - Refilling patient's Amlodipine 2.5mg daily Assessment & Plan (09/07/2022 9:43 PM SAMPLE PASTER): Continue amlodipine Well controlled- Repeat 140/90 Assessment & Plan (03/05/2022 9:52 PM CDT): In the past, his BP normalized after his gastric sleeve surgery. However it appears to be elevating again. Discussed restarting one of his BP meds. Previously on amlodipine 5mg.Will restart at amlodipine 2.5mg daily. Patient is agreeable to this plan. Assessment & Plan (09/08/2021 11:16 AM SAMPLE PASTER): He had stopped BP meds after his [...] on file Legal Sex Male 5:35 AM SAMPLE PASTER Gender Identity Not on file Sexual Orientation Not on file Last Filed Vital Signs Vital Sign Reading Time Taken Comments Blood Pressure 124/90 09/11/2024 9:00 AM SAMPLE PASTER Pulse 96 09/11/2024 9:00 AM SAMPLE PASTER Temperature 36.7 C (98.1 F) 09/11/2024 9:00 AM SAMPLE PASTER Respiratory Rate - - Oxygen Saturation 96% 09/11/2024 9:00 AM SAMPLE PASTER Inhaled Oxygen Concentration - - Weight 82.7 kg (182 lb 6.4 oz) 09/11/2024 9:00 A M SAMPLE PASTER Height 172 cm (5' 7.72 ) 09/11/2024 9:00 AM SAMPLE PASTER Body Mass Index 27.97 09/11/2024 9:00 AM SAMPLE PASTER Plan of Treatment Not on file Procedures Procedure Name Priority Date/Time Associated Diagnosis Comments RPR Routine 08/03/2024 10:28 AM SAMPLE PASTER HIV infection, unspecified symptom status (HCC) Routine [...] FOR NEUTROPENIC PATIENT Routine 07/15/2018 11:34 AM SAMPLE PASTER HIV disease (HCC) HLA B*5701 TYPING Routine 08/06/2013 2:4 0 PM SAMPLE PASTER from Last 3 Months or Most Recently Relevant to Health Maintenance Results * (ABNORMAL) RPR Blood (08/03/2024 10:28 AM SAMPLE PASTER) RPR Reactive(A ) Nonreactive Blood 08/03/2024 10:2 8 AM SAMPLE PASTER 08/03/2024 2:11 PM SAMPLE PASTER Timoteo LONG LAB MICROBIOLOGY - GENERAL ORDERABLES Final Result Performing Organization Address City/State/[facility] Co de Phone Number [facility] [place] [address] * T-SPOT.TB Blood (11/01/2023 11:01 AM CDT) [...] test. T-SPOT.TB Panel A Spot Count 2 [facility] T-SPOT.TB Panel B Spot Count 0 [facility] T-SPOT.TB Negative Control Passed [facility] T-SPOT.TB Positive Control Passed [facility] Comment: Test Performed at: [employer] [address] [place] [phone] JILL BURNS,PHD Blood 11/01/2023 11:0 1 AM CDT 11/01/2023 2:37 PM CDT Timoteo LONG LAB MICROBIOLOGY - GENERAL ORDERABLES Final Result Performing Organization Address City/[facility] Co de Phone Number [facility] Department [place] [address] * Hepatitis C antibody Blood (11/01/2023 11:01 AM CDT) [facility] Hep C Ab Nonreactive Nonreactive Comment:Antibodies to HCV no t detected. Does NOT exclude the possibility of recent exposure to HCV. Current interpretive data was last revised on 22 Blood 11/01/2023 11:0 1 AM CDT 11/01/2023 2:32 PM CDT Timoteo LONG LAB MICROBIOLOGY - GENERAL ORDERABLES Final Result Performing Organization Address City/[facility] Co de Phone Number [facility] [place] [employer] [place] [address] * Hemoglobin A1c (11/01/2023 11:01 AM CDT) [facility] Hgb A1C 5.1 4.0 - 5.6 % Estimated Average Glucose 100 mg/dL [facility] Comment: The ADA recommends reporting an estimated [...] LONG LAB BLOOD ORDERABLES Final Result [facility] Department [place] [address] * (ABNORMAL) Lipid panel (11/01/2023 11:01 AM [...] on 2018. Triglycerides 159(H) <=149 mg/dL [facility] Comment: Interpretive Data Ages < or [...] on 2018. LDL, calculated 38 <=129 mg/dL [facility] Comment: Interpretive Data Ages < or [...] revised on 2018. Non-HDL Cholesterol 70 mg/dL [facility] Comment: Interpretive Data Ages < or = [...] last revised on 2018. Chol/HDL ratio 2 [facility] Blood 11/01/2023 11:0 1 AM CDT 11/01/2023 2:32 PM CDT Timoteo LONG LAB BLOOD ORDERABLES Final Result [facility] [place] [address] * (ABNORMAL) Urinalysis with reflex for neutropenic patient Urine (07/15/2018 11:34 AM SAMPLE PASTER) Color, ur Yellow Yellow CERNER BJ Clarity, [...] RBCs. Urobilinogen, ur 4.0(A) <2.0 mg/dL [facility] Nitrite, ur Negative Negative CERNER BJ Leukocyte esterase, ur Negative Negative CERNER BJ Urine 07/15/2018 11:3 4 AM SAMPLE PASTER 07/15/2018 2:58 PM SAMPLE PASTER Narrative [facility] - 07/15/2018 3:27 PM SAMPLE PASTER Urine pH is affected by diet, medications, systemic acid-base disturbances, and renal tubular function. pH may affect urinary stone formation. For example, urine pH below 6.0 may help reduce the tendency for calcium phosphate stones and pH greater than 6.0 may reduce the tendency for uric acid stone formation. Source: [employer] Last revised 08-29-2017 Timoteo LONG LAB MICROBIOLOGY - GENERAL ORDERABLES Final Result [facility] [place] [address] * HLA B*5701 Typing (08/06/2013 2:40 PM SAMPLE PASTER) HLA B*5701 TYPING Negative QU EST HISTORICAL RESULTS Comment: The allele HLA-B*5701 is associated with Abacavir hypersensitivity reaction (HSR). A negative result for HLA-B*5701 does not rule out the possibility of Abacavir HSR. RESULTS REVIEWED BY: see note [facility] HISTORICAL RESULTS Comment: Waleska Leon, Ph.D.,D([facility]) Director, HLA and Immunogenetics References: Stewart S. et al. Lancet. 2002 Oct 2; 359 (5055): 718-58 Brooke Hodge. Clin. Inf. Dis. 2005; 43 (1): 99-102. Typing performed by PCR and hybridization with sequence specific oligonucleotide probes (SSO). 08/06/2013 2:40 PM SAMPLE PASTER us Aisha Pena MD LAB BLOOD ORDERABLES Final Resu lt [facility] HISTORICAL RESULTS from Last 3 Months or Most Recently Relevant to Health Maintenance Insurance * Guarantor: Ben Blanco Account Type Relation to Patient Date of Phone Billing Address Personal/Family Self 1985 [address] [place] [address] [employer] * Guarantor: Ben Blanco Account Type Relation to Patient Date of Phone Billing Address Personal/Family Self 1985 [address] [place] [address] [employer] PPO [place] [id number] [address] [employer] [address] [place] [address] Care Teams Strip Cutter Relationship Specialty Start Date End Date No, Physician PCP - General 03/14/18 Maris Helm Accounting Manager Controller Infectious Diseases 01/15/18
--- OUTSIDE RECORDS SUMMARY | 2024-12-11 14:05 | XMS_ITS | Clinical Summary ---
Author Organization [facility] Address [facility] [place] [address] Care Team Providers Care Sales Merchandise Associate Name Role Phone Unavailable Primary Care Provider [...]
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
[2024-12-11] MEDS: KETOROLAC 30 MG/ML VIAL (*BKC) IV PUSH (15:45)
[2024-12-11] MEDS: SODIUM CHLORIDE 0.9% IV 1,000 ML 999 ML IV CONT ×3 (15:45→18:11)
[2024-12-11 15:58] LABS: Basophils Absolute Auto 0.1 K/mm3 (0.0-0.1); Basophils Percent Auto 0.4 % (0.2-1.2); Hematocrit 54.8 % (42.0-52.0); Hemoglobin 18.5 g/dL (14.0-18.0); Immature Granulocyte Percent A 0.5 % (0-0.5); Immature Platelet Fraction Pct 25.8 % (0.9-11.2); Mean Corpuscular HGB Conc 33.8 g/dl (32-36); Mean Corpuscular Hemoglobin 37.4 pg (26-34); Mean Corpuscular Volume 110.9 fl (80-100); Mean Platelet Volume 14.6 fl (7.4-10.4); Monocytes Absolute Auto 2.1 K/mm3 (0.1-0.6); Monocytes Percent Auto 11.2 % (2.6-8.5); Neutrophils Absolute Auto 14.9 K/mm3 (1.3-6.7); Neutrophils Percent Auto 80.9 % (45.5-73.1); Platelet Count Result 156 k/mm3 (150-375); Red Blood Count 4.94 M/mm3 (4.6-6.20); Red Cell Distribution Width 17.4 % (11.5-14.5); White Blood Count 18.4 K/mm3 (4.5-10.0)
[2024-12-11] MEDS: HYDROmorphone HCL INJ (*CRX) 2 MG/ML VIAL 0.5 MG IV PUSH ×2 (16:08→20:24)
[2024-12-11 16:09] LABS: Prothrombin Time 14.1 Seconds (11.1-14.7)
[2024-12-11 16:10] LABS: Partial Thromboplastin Time 32.6 Seconds (22.3-36.8)
[2024-12-11 16:11] LABS: Alkaline Phosphatase 85 U/L (38-126); Anion Gap 15 mmol/L (4-12); Aspartate Amino Transferase 56 U/L (17-59); Bilirubin,Total 1.5 mg/dL (0.2-1.3); Blood Urea Nitrogen 31 mg/dL (9-20); Calcium 9.1 mg/dL (8.4-10.2); Carbon Dioxide 25 mmol/L (22-30); Chloride 100 mmol/L (98-107); Estimated CRCL calculation 25 ml/min; Estimated Glomerular Filt Rate 19; Glucose 94 mg/dL (65-110); Lipase 215 U/L (23-300); Potassium 6.2 mmol/L (3.4-5.0); Sodium 140 mmol/L (137-145)
[2024-12-11 16:18] LABS: Alanine Aminotransferase 71 U/L (6-50); Albumin Level 4.2 g/dL (3.5-5.1)
[2024-12-11 16:21] LABS: Troponin I < 0.012 ng/mL (0.000-0.034)
[2024-12-11] MEDS: SODIUM BICARBONATE 8.4% 50 MEQ/50 ML SYRINGE IV PUSH (16:28)
[2024-12-11] MEDS: CALCIUM GLUC 1,000 MG/NS 50 ML 1,000 MG/50 ML BAG 100 MG IVPB (16:28)
[2024-12-11] MEDS: DEXTROSE 50% 25 GM/50 ML SYRINGE IV PUSH ×2 (16:28→18:11)
[2024-12-11] MEDS: SODIUM ZIRCONIUM CYCLOSILICATE 10 GM POWD.PACK PO (16:32)
[2024-12-11 16:42] LABS: Glucose Point of Care 48 mg/dl (65-105)
[2024-12-11] MEDS: ALBUTEROL SULFATE NEB 2.5 MG/3 ML INH 10 MG INHALATION (16:44)
--- NOTE | 2024-12-11 16:46 | PCRCNOTE ---
PT. WAS TAKEN TO CT BEFORE TREATMENT WAS ABLE TO BE STARTED.
[2024-12-11] MEDS: INSULIN HUMAN REGULAR (*BKC) 100 UNITS/ML 10 UNITS IV PUSH (16:55)
[2024-12-11 17:10] LABS: CRP 16.2 mg/dL (<1.0)
[2024-12-11 17:18] LABS: Erythrocyte Sedimentation Rate 5 mm/hr (0-20)
[2024-12-11 17:27] LABS: Band Neutrophils Percent 20 % (0-6); Basophils Percent Manual 0 % (0-1); Eosinophils Percent Manual 0 % (0-4); Giant Platelets Present; Large Platelets Present; Lymphocytes Absolute Manual 2.02 K/mm3 (1.1-4.5); Lymphocytes Percent Manual 11 % (18-44); Monocytes Absolute Manual 0.92 K/mm3 (0.1-0.90); Monocytes Percent Manual 5 % (3-9); Neutrophils Absolute Manual 15.45 K/mm3 (1.3-6.7); Neutrophils Percent Manual 64 % (46-73); Platelet Estimate Adequate (Adequate); Total Cells Counted 100
[2024-12-11 17:28] LABS: Anisocytosis 1+; Schistocytes None Seen
[2024-12-11 17:54] LABS: Reflex Lactic Acid Yes or No Add Lactic
[2024-12-11 18:54] LABS: Glucose Point of Care 191 mg/dl (65-105)
--- NOTE | 2024-12-11 19:44 | PM.IMHP ---
H&P: HPI History of Present Illness Date/Time: 12/11/24 19:44 Chief Complaint: Rectal bleeding and pain Narrative: 39-year-old male with past medical history of HIV on Biktarvy who presented to the ER with diarrhea and rectal pain after experimenting with rectal plugging during intercourse with his girlfriend 2 days ago. He reports that he immediately had bowel incontinence following the episode. He has had diarrhea since then he reports the constant sensation of discomfort and pain in his rectum a. He feels as if the constantly has to have a bowel movement. He has strained several times to try to have a bowel movement. He has also had several episodes of incontinence diarrheal stools 1 of which was after he had been admitted to the IMU and he walked out into the mac trailing stool. He reports that when he does try to have a bowel movement at his rectum hangs out. He reports that when he does have diarrheal stools he will get overtly diaphoretic and feel lightheaded. He denies any chills but assumed he had a fever due to the episodes of diaphoresis. He did not measure his temperature. He also reports bilateral lower quadrant abdominal pain that is cramping in nature. He initially had some rectal bleeding the 1st day of his symptoms. He is still having some blood streaked of the toilet paper when he wipes currently. He denies any nausea or vomiting. He has been trying to stay hydrated by drinking Pedialyte. He has been having some mild shortness of breath but denies any chest pain. He states the shortness of breath he thinks is due to his abdominal discomfort. He denies any lower extremity swelling orthopnea or paroxysmal nocturnal dyspnea. He does report these markedly anxious. He states that he only smokes 3-4 cigarettes a day but tried to leave the hospital to go out and smoke after admission. He denies any dysuria or changes in urinary frequency. He reports that he followed up with his doctor regarding his HIV and that is viral loads are nondetectable. Review of Systems Review of Systems: 12 systems were reviewed with pertinent positives and negatives per HPI. Except as documented in the HPI, all other systems were reviewed and are negative. 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 He smokes 3-4 cigarettes a day and has smoked since he was 16 years old. He drinks a few alcoholic beverages 1-2 times per week. He denies any history of illicit substance use. Code status: Full code Surrogate decision maker: Kalina Castellano (sister) Smoking status: Light tobacco smoker Tobacco type: cigarettes Alcohol intake: current Drinks per week: 2 Substance use: never Substance use type: does not use Do You Feel Safe in your Home?: Yes Lack of Transportation: No Lack of Food: Never True Current Housing: I Have Housing Concerned About Future Housing: No Difficulty Paying Gas/Electric Bills: No Difficulty Paying for Meds: No Currently Unemployed: No Education: High School Diploma/GED Difficulty w/ Childcare or Family Care: No Living arrangements: alone Occupation/Education: occupation 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 Gender identity (if verbalized by the patient): Male Spiritual care concerns: No Meds Home Medications and Allergies Home Medications ?Medication ?Instructions ?Recorded ?Confirmed ?Type No Home Medications 12/11/24 12/11/24 History Allergies Allergy/AdvReac Type Severity Reaction Status Date / Time No Known Allergies Allergy Mild Verified 04/20/24 08:41 Vital Signs Vital Signs - 24 hr 12/11/24 13:22 12/11/24 15:53 12/11/24 16:01 Temperature 97.3 F L Pulse Rate 130 H 91 Respiratory Rate 16 18 28 H Blood Pressure 93/67 L 104/62 Pulse Oximetry 99 98 Oxygen Delivery Room Air 12/11/24 16:54 12/11/24 17:00 12/11/24 18:00 Temperature Pulse Rate 97 105 H 127 H Respiratory Rate 14 27 H 18 Blood Pressure 134/92 H Pulse Oximetry 100 Oxygen Delivery 12/11/24 18:10 Temperature Pulse Rate 116 H Respiratory Rate Blood Pressure 109/66 Pulse Oximetry 95 Oxygen Delivery Exam Narrative: Weight 80.9 kg BMI 27.1 Const: Other: No acute distress, well-developed well-nourished, appears stated age HENMT: Other: Crowded posterior oropharynx, mucous membranes are dry, no oral pharyngeal erythema Eyes: Other: No scleral icterus, no conjunctival pallor, pupils are equal and reactive Neck: Other: No JVD, no lymphadenopathy Resp: Other: Clear to auscultation bilaterally, no increased work of breathing Cardio: Other: Sinus tachycardia, 2+ bilateral radial pedal pulses Skin: Other: Numerous tattoos covering the chest upper and lower arms and neck, no jaundice, no pallor, no rashes to exposed areas of skin Neuro: Other: Alert oriented, speech is clear, no facial asymmetry, no localizing neurologic deficits noted during the course of conversation Extrem: Other: No clubbing, cyanosis or edema Psych: Other: Anxious, intact judgment and insight H&P: Results Labs Labs: Laboratory Tests 12/11/24 15:49 12/11/24 15:51 12/11/24 12/11/24 12/11/24 15:49 15:51 16:31 WBC 18.4 H RBC 4.94 Hgb 18.5 H D Hct 54.8 H MCV 110.9 H MCH 37.4 H MCHC 33.8 RDW 17.4 H Plt Count 156 D MPV 14.6 H Immature Gran % (Auto) 0.5 Neut % (Auto) 80.9 H Lymph % (Auto) 7.0 L Story % (Auto) 11.2 H Eos % (Auto) 0.0 Baso % (Auto) 0.4 Lymph # (Auto) 1.30 Story # (Auto) 2.1 H Eos # (Auto) 0.0 Baso # (Auto) 0.1 Abs Immat Gran (auto) 0.10 H Absolute Neuts (auto) 14.9 H Absolute Nucleated RBC 0.000 Total Counted 100 Neutrophils % (Manual) 64 Band Neutrophils % 20 H Lymphocytes % (Manual) 11 L Monocytes % (Manual) 5 Eosinophils % (Manual) 0 Basophils % (Manual) 0 Nucleated RBC % 0.0 Abs Neuts (Manual) 15.45 H Abs Lymphs (Manual) 2.02 Abs Monocytes (Manual) 0.92 H Absolute Eos (Manual) 0.00 L Abs Basophils (Manual) 0.00 Platelet Estimate Adequate Large Platelets Present Giant Platelets Present % Immature Plt Fraction 25.8 H Anisocytosis 1+ Schistocytes None seen ESR 5 PT 14.1 INR 1.0 APTT 32.6 Sodium 140 Potassium 6.2 H* Chloride 100 Carbon Dioxide 25 Anion Gap 15 H BUN 31 H D Creatinine 3.59 H Estim Creat Clear Calc 25 Estimated GFR 19 L Glucose 94 POC Capillary Glucose 48 L* Lactic Acid 5.0 H* Calcium 9.1 Total Bilirubin 1.5 H AST 56 ALT 71 H Alkaline Phosphatase 85 Troponin I < 0.012 C-Reactive Protein 16.2 H Total Protein 8.0 Albumin 4.2 Lipase 215 Urine Color Pending Urine Appearance Pending Urine pH Pending Ur Specific [place] Pending Urine Protein Pending Urine Glucose (UA) Pending Urine Ketones Pending Ur Blood (Man) Pending Urine Nitrate Pending Urine Bilirubin Pending Urine Urobilinogen Pending Leukocyte Esterase Rfl Pending 12/11/24 18:32 WBC RBC Hgb Hct MCV MCH MCHC RDW Plt Count MPV Immature Gran % (Auto) Neut % (Auto) Lymph % (Auto) Story % (Auto) Eos % (Auto) Baso % (Auto) Lymph # (Auto) Story # (Auto) Eos # (Auto) Baso # (Auto) Abs Immat Gran (auto) Absolute Neuts (auto) Absolute Nucleated RBC Total Counted Neutrophils % (Manual) Band Neutrophils % Lymphocytes % (Manual) Monocytes % (Manual) Eosinophils % (Manual) Basophils % (Manual) Nucleated RBC % Abs Neuts (Manual) Abs Lymphs (Manual) Abs Monocytes (Manual) Absolute Eos (Manual) Abs Basophils (Manual) Platelet Estimate Large Platelets Giant Platelets % Immature Plt Fraction Anisocytosis Schistocytes ESR PT INR APTT Sodium Potassium Chloride Carbon Dioxide Anion Gap BUN Creatinine Estim Creat Clear Calc Estimated GFR Glucose POC Capillary Glucose 191 H Lactic Acid Calcium Total Bilirubin AST ALT Alkaline Phosphatase Troponin I C-Reactive Protein Total Protein Albumin Lipase Urine Color Urine Appearance Urine pH Ur Specific [place] Urine Protein Urine Glucose (UA) Urine Ketones Ur Blood (Man) Urine Nitrate Urine Bilirubin Urine Urobilinogen Leukocyte Esterase Rfl Impressions Abdomen/Pelvis CT 12/11/24 16:58 IMPRESSION: Mural thickening throughout the entirety of the colon. Oral contrast extends to the level of the distal descending colon without obstruction. Infiltration of the presacral fat. No radiopaque foreign body is appreciated. Hyperattenuating findings within the distal sigmoid colon which represent either oral contrast versus acute hemorrhage. Direct visualization is suggested. All imaging and EKGs personally reviewed and interpreted. And unless stated otherwise agree with radiologic and cardiology interpretation. Assessment and Plan Assessment and plan (1) Sepsis: Qualifiers: Acute renal failure type: unspecified Sepsis acute organ dysfunction status: with acute organ dysfunction Sepsis type: sepsis due to unspecified organism Severe sepsis acute organ dysfunction type: acute renal failure Severe sepsis shock status: without septic shock Qualified Code(s): A41.9 - Sepsis, unspecified organism; R65.20 - Severe sepsis without septic shock; N17.9 - Acute kidney failure, unspecified Code(s): A41.9 - Sepsis, unspecified organism Status: Acute (2) Rectal bleed: Code(s): K62.5 - Hemorrhage of anus and rectum Status: Acute (3) Acute kidney injury: Code(s): N17.9 - Acute kidney failure, unspecified Status: Acute (4) Acute hyperkalemia: Code(s): E87.5 - Hyperkalemia Status: Acute (5) Macrocytosis without anemia: Code(s): D75.89 - Other specified diseases of blood and blood-forming organs Status: Acute (6) Hyperglycemia: Code(s): R73.9 - Hyperglycemia, unspecified Status: Acute Plan Sepsis likely due to colitis presumed to be infectious. Severe Sepsis criteria met with tachycardia, leukocytosis, bandemia and lactic acidosis. Patient received greater than 30 mL/kilos fluid bolus in the ER. Empiric antibiotic therapy started with Zosyn with pharmacy to dose. GI and General surgery consulted. Patient is NPO. The patient reports that he is having sensation of his bowel hiding out his rectum. I suspect this may be due to hemorrhoids especially given his report of blood on toilet paper with wiping. However no external hemorrhoids noted per ER provider documentation. No overt prolapse noted either. Acute kidney injury secondary to severe sepsis and likely some component of hypovolemia with polycythemia patient's prior hemoglobin less than a year ago was 13. Will repeat CBC and electrolyte panel in a.m.. Patient did have associated hyperkalemia due to decreased renal excretion from acute kidney injury and was treated with calcium, dextrose, insulin, albuterol and bicarb. Will repeat electrolyte panel this evening to see if there has been improvement in the patient's potassium. Will avoid nephrotoxic medications. Nursing staff has been unable to collect a UA. The patient states that he cannot urinate in the urinal while having a bowel movement. Nursing staff bladder scan the patient this morning and his bladder was empty again. Patient's has been educated that we need a UA and urine drug screen but has not been receptive to education. Patient does have macrocytosis that looks like is longstanding. Could be due to antiviral medications. However will check B12 and folic acid to rule out some component of deficiency. Update.. The patient's folic acid level is low. Will give folic acid supplementation. B12 level was mid range. Will check methylmalonic acid level. Patient is currently mildly hyperglycemic. He denies history of diabetes. Will check hemoglobin A1c and monitor glucoses. Update.. Hemoglobin A1c was less than 5 repeat glucose with a.m. labs was 96. No evidence of diabetes. Patient has been admitted as observation status. Quality VTE Prophylaxis VTE prophylaxis: pharmacologic ordered (Lovenox 30 mg subQ daily.) Hospitalist [facility] Advance Care Plan I have confirmed that the patient's Advanced Care Plan is present, code status is documented, or surrogate decision maker is listed in patient medical record.: Yes Medication Reconciliation I have utilized all available resources to obtain, update and review the patients current medications (includes all prescriptions, OTC, herbals, cannabis, and nutritional supplements).: Yes
--- NOTE | 2024-12-11 20:08 | ADMGEN ---
This patient, Ben Blanco, was admitted to IMU Room 231-01. Patient/family oriented to hospital policies and general routines including ID bracelet, bed and alarms, visiting hours, pain management, procedures, bathroom and other care routines, personal items, smoking policy, room service/diet, and visiting hours. Information on how to activate the Rapid Response Team has been discussed. Patient/Family are encouraged to report perceived risks to care and to ask questions if they do not understand what they are told or what they should do.
[2024-12-11] MEDS: FAMOTIDINE 20 MG/2 ML VIAL IV PUSH (20:23)
[2024-12-11] MEDS: PIPERACILLIN/TAZ 2.25G/NS 50ML 2.25 GM/50 ML BAG IVPB (20:24)
[2024-12-11] MEDS: LACTATED RINGERS 1,000 ML 150 ML IV CONT (20:24)
[2024-12-11 21:08] LABS: Anion Gap 13 mmol/L (4-12); Blood Urea Nitrogen 32 mg/dL (9-20); Calcium 7.8 mg/dL (8.4-10.2); Carbon Dioxide 21 mmol/L (22-30); Chloride 102 mmol/L (98-107); Estimated CRCL calculation 31 ml/min; Estimated Glomerular Filt Rate 25; Glucose 137 mg/dL (65-110); Potassium 4.5 mmol/L (3.4-5.0); Sodium 136 mmol/L (137-145)
[2024-12-11 21:31] LABS: Procalcitonin 7.2 ng/mL
[2024-12-11 22:15] LABS: Folic Acid 2.4 ng/mL (2.76->20)
[2024-12-11] MEDS: LACTATED RINGERS 1,000 ML 500 ML IV CONT ×2 (22:17)
[2024-12-11] MEDS: ZOLPIDEM TARTRATE (*CRX) 5 MG TABLET 10 MG PO (22:17)
[2024-12-11 22:42] LABS: Free T4 Free Thyroxine Reflex 1.83 ng/dL (0.78-2.19)
[2024-12-11 23:31] LABS: Total Triiodothyronine (T3) 0.65 NG/ML (0.97-1.69)
[2024-12-12] VITALS (9 sets, daily range): BP systolic 103–138; BP diastolic 62–95; PULSE 81–106; RESP 14–20; TEMP 36.2–36.8; O2SAT 96–100
[2024-12-12] MEDS: NICOTINE (*PBKC) 7 MG PATCH 1 PATCH TRANSDERM ×2 (00:34→09:43)
[2024-12-12] MEDS: FOLIC ACID 1 MG/0.2 ML INJ IV PUSH (00:34)
[2024-12-12] MEDS: HYDROmorphone HCL INJ (*CRX) 2 MG/ML VIAL 0.5 MG IV PUSH ×3 (02:11→16:48)
[2024-12-12] MEDS: LACTATED RINGERS 1,000 ML 150 ML IV CONT ×3 (02:40→19:27)
[2024-12-12 03:03] LABS: Toxigenic C. Diff NEGATIVE (NEGATIVE)
[2024-12-12] MEDS: PIPERACILLIN/TAZ 2.25G/NS 50ML 2.25 GM/50 ML BAG IVPB ×4 (03:38→21:11)
[2024-12-12 04:24] LABS: Hematocrit 42.5 % (42.0-52.0); Hemoglobin 14.8 g/dL (14.0-18.0); Immature Platelet Fraction Pct 19.1 % (0.9-11.2); Mean Corpuscular HGB Conc 34.8 g/dl (32-36); Mean Corpuscular Hemoglobin 37.6 pg (26-34); Mean Corpuscular Volume 107.9 fl (80-100); Mean Platelet Volume 13.9 fl (7.4-10.4); Platelet Count Result 147 k/mm3 (150-375); Red Blood Count 3.94 M/mm3 (4.6-6.20); Red Cell Distribution Width 17.2 % (11.5-14.5); White Blood Count 11.3 K/mm3 (4.5-10.0)
[2024-12-12 04:30] LABS: Alanine Aminotransferase 46 U/L (6-50); Albumin Level 2.8 g/dL (3.5-5.1); Alkaline Phosphatase 57 U/L (38-126); Anion Gap 7 mmol/L (4-12); Aspartate Amino Transferase 40 U/L (17-59); Bilirubin,Total 0.7 mg/dL (0.2-1.3); Blood Urea Nitrogen 36 mg/dL (9-20); Calcium 7.8 mg/dL (8.4-10.2); Carbon Dioxide 27 mmol/L (22-30); Chloride 103 mmol/L (98-107); Creatine Kinase 35 U/L (55-170); Estimated CRCL calculation 34 ml/min; Estimated Glomerular Filt Rate 27; Glucose 96 mg/dL (65-110); Potassium 3.8 mmol/L (3.4-5.0); Sodium 137 mmol/L (137-145)
[2024-12-12 04:48] LABS: Lactic Acid Reflex 1.3 mmol/L (0.7-2.0)
[2024-12-12 04:55] LABS: Hemoglobin A1C 4.5 % (<5.7)
[2024-12-12 05:01] LABS: Band Neutrophils Percent 9 % (0-6); Basophils Absolute Manual 0.11 K/mm3 (0.0-0.1); Basophils Percent Manual 1 % (0-1); Lymphocytes Absolute Manual 2.14 K/mm3 (1.1-4.5); Monocytes Absolute Manual 0.79 K/mm3 (0.1-0.90); Monocytes Percent Manual 7 % (3-9); Neutrophils Absolute Manual 8.02 K/mm3 (1.3-6.7); Neutrophils Percent Manual 62 % (46-73); Platelet Estimate Adequate (Adequate); Promyelocytes Percent 2 %; Total Cells Counted 100
[2024-12-12 05:02] LABS: Anisocytosis 1+; Atypical Lymphocytes Present; Burr Cells 1+; Large Platelets Present; Schistocytes None Seen; Smudge Cells PRESENT
[2024-12-12] MEDS: FAMOTIDINE 20 MG/2 ML VIAL IV PUSH ×2 (09:40→21:11)
[2024-12-12] MEDS: PANTOPRAZOLE SODIUM IV 40 MG VIAL IV PUSH (09:40)
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
--- NOTE | 2024-12-12 15:43 | PC.NURSE ---
This patient, Ben Blanco, was received from [address] [place] [address] on 12/12/24 at 1520. Patient arrived via wheelchair. Patient oriented to unit policies and routines. Patient oriented to call light and its use. Call light within reach. All belongings within reach. Patient oriented to call with any needs. Patient voiced understanding.
[2024-12-12] MEDS: ZOLPIDEM TARTRATE (*CRX) 5 MG TABLET 10 MG PO (21:11)
[2024-12-13 00:51] LABS: Add Urine Microscopic? YES; Appearance Urine Clear (Clear); Bacteria Urine None Seen /hpf; Bilirubin Urine Negative (Negative); Blood Urine Negative (Negative); Color Urine Yellow (Yellow); Glucose Urine UA Negative (Negative); Ketones Urine 1+ mg/dL (Negative); Leukocyte Esterase Ur Negative LEU/UL (Negative); Nitrate Urine Negative (Negative); Non Pathogenic Casts 0-2; Protein Urine 1+ mg/dL (Negative); RBC Urine 0-2 /hpf (0-2); Specific Grav Ur 1.025 (1.001-1.035); Squamous Epithelial Cell Urine Few /hpf (Few); Urobilinogen Urine 0.2 mg/dL (<2.0); WBC Urine 0-5 /hpf (0-3)
[2024-12-13 01:01] LABS: Amphetamine Screen Urine Negative (Negative); Barbiturate Screen Urine Negative (Negative); Benzodiazepines Screen Urine Negative (Negative); Cannabinoid Screen Urine Negative (Negative); Cocaine Screen Urine Negative (Negative); Methadone Screen Urine Negative (Negative); Opiate Screen Urine Positive (Negative); Phencyclidine Screen Urine Negative (Negative)
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
[2024-12-14 10:08] LABS: Lactic Acid 6.2 mmol/L (0.7-2.0)
== END 2024-12-13 02:30 | disposition left against medical advice (07) ==
LOC: ANHED 18:45 → ANHIMU 12-12 00:16 → ANH3MEDSUR 12-13 02:12 → ANHIMU 12-14 08:12
PROVIDERS: Student in an Organized Health Care Education/Training Program; Admitting Provider Internal Medicine; Emergency Provider Registered Nurse; Visit Provider Internal Medicine
DX: A41.9 Sepsis, unspecified organism (principal); R65.20 Severe sepsis without septic shock; N17.9 Acute kidney failure, unspecified; E87.5 Hyperkalemia; E86.0 Dehydration; S36.63XA Laceration of rectum, initial encounter; W44.8XXA Other foreign body entering into or through a natural orifice, initial encounter; K64.1 Second degree hemorrhoids; K64.0 First degree hemorrhoids; F22 Delusional disorders; B20 Human immunodeficiency virus [HIV] disease; Z79.899 Other long term (current) drug therapy; D75.89 Other specified diseases of blood and blood-forming organs; R73.9 Hyperglycemia, unspecified; F17.210 Nicotine dependence, cigarettes, uncomplicated; E53.8 Deficiency of other specified B group vitamins; Z98.84 Bariatric surgery status
CPT/HCPCS: 36415; 74176; 80048; 80053; 80307; 81001; 82550; 82607; 82746; 82948; 83036; 83605; 83690; 83921; 84145; 84439; 84443; 84480; 84484; 85025; 85055; 85610; 85652; 85730; 86140; 87040; 87045; 87186; 87269; 87272; 87427; 87449; 87493; 94640; 96361; 96365; 96366; 96375; 96376; 99285; A9270; G0378; J0612; J1171; J1815; J1885; J2470; J2543; J7030; J7120

== ENCOUNTER 2025-08-11 17:56 | Emergency (ER) | payer SELFPAY ==
--- OUTSIDE RECORDS SUMMARY | 2025-08-11 17:58 | XMS_ITS | Clinical Summary ---
Author Organization [facility] Address Formerly [facility] [place] [address] Care Team Providers Care Trousseau Consultant Name Role Phone None, Provider MD Primary Care Provider Unavaila ble Allergies No known active allergies Medications cabotegravir & rilpivirine (CABENUVA) 600 & 900 MG/3ML injection Inject 1 kit into the muscle every 3 (three) months. 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 No 12/16/2024 Humiliation, Afraid, Rape, and Kick questionnair e Answer Date Recorded Within the last year, have y ou been afraid of your partner or ex-partner? No 12/16/2024 Within the last year, have y ou been humiliated or emotionally abused in other ways by your partner or ex-partner? No Within the last year, have y ou been kicked, hit, slapped, or otherwise physically hurt by your partner or ex-partner? No 12/16/2024 Within the last year, have y ou been raped or forced to have any kind of sexual activity by your partner or ex-partner? No 12/16/2024 Overall Financial Resource Strain (CARDIA) Answe r Date Recorded How hard is it for you to pa y for the very basics like food, housing, medical care, and heating? Not hard at all 12/16/2024 Hunger Vital Sign Answer Date Recorded Within the past 12 months, y ou worried that your food would run out before you got the money to buy more. Never true 12/17/19 25 Within the past 12 months, t he food you bought just didn't last and you didn't have money to get more. Never true 12/16/2024 PRAPARE - Transportation Answer Date Re corded In the past 12 months, has l ack of transportation kept you from medical appointments or from getting medications? No 11/19 In the past 12 months, has l ack of transportation kept you from meetings, work, or from getting things needed for daily living? No 12/16/2024 Housing Stability Vital Sign Answer Lefty e Recorded In the last 12 months, was t here a time when you were not able to pay the mortgage or rent on time? No 12/16/2024 In the past 12 months, how m any times have you moved where you were living? 0 12/16/2024 At any time in the past 12 m [facility], were you homeless or living in a custodial (including now)? No 12/16/2024 Sex and Gender Information Value Date Recorded Sex Assigned at Male 12/16/2024 10:22 AM CDT Legal Sex Male 4:27 PM CDT Gender Identity Not on file Sexual Orientation Not on file Last Filed Vital Signs Vital Sign Reading Time Taken Comments Blood Pressure 132/90 12/18/2024 4:26 PM CDT Pulse 61 12/18/2024 4:26 PM CDT Temperature 36.7 C (98.1 F) 12/18/2024 4:26 PM CDT Respiratory Rate 16 12/18/2024 4:26 PM CDT Oxygen Saturation 99% 12/18/2024 4:26 PM CDT Inhaled Oxygen Concentration - - Weight 84.1 kg (185 lb 6.5 oz) 12/17/2024 5:38 A M CDT Height 172.7 cm (5' 8) 12/16/2024 10:13 AM CDT Body Mass Index 28.19 12/16/2024 10:13 AM CDT Plan of Treatment Health Maintenance Due Date Last Done Comments Annual Physical 1989 Hepatitis B Vaccines (3 of 3 - 3-dose series) 02/09/1997 12/15/1996, 09/16/1996 Hepatitis C 2004 HPV Vaccines (1 - 3-dose SCDM series) 2013 DTaP, Tdap and Td Vaccines (7 - Td or Tdap) 09/17/2023 09/17/2013, 05/01/1991, 03/07/1989, Additional history exists COVID-19 Vaccine (3 - 2024- season) 2025 09/25/2021, 08/28/2021 Influenza Adult (#1) 2025 08/02/2020, 07/15/2018, 05/21/2017, Additional history exists Pneumococcal Vaccine: Pediatrics (0 to 5 Years) and At-Risk Patients (6 to 49 Years) (3 of 3 - PCV20 or PCV21) 2036 02/15/2016, 04/20/2015 Hepatitis A Vaccines Aged Out 02/15/2016, 04/20/20 15 No longer eligible based on patient's age to complete this topic Meningococcal B Vaccine Aged Out No l onger eligible based on patient's age to complete this topic Meningococcal Vaccine Aged Out No amanda yaquelin eligible based on patient's age to complete this topic RSV Immunizations Under 20 Months Aged Out No longer eligible based on patient's age to complete this topic Goals Goal Patient Goal Type Associated Problems Recent Progress Patient-Stated? Author Family - family caregiver with be involved in care transitions and discharge planning Lifestyle No Lisa Kennedy, BRICKLAYER APPRENTICE Advance Directives * Full Code (Latest Code Status on File) Date Activated Date Inactivated Comments 12/16/2024 1:49 PM 12/18/2024 8:36 PM Care Teams Trousseau Consultant Relationship Specialty Start Date End Date None, Provider, MD PCP - General UNKNOWN PHYSICIAN SPECIALTY 12/16/24
--- OUTSIDE RECORDS SUMMARY | 2025-08-11 17:58 | XMS_ITS | Clinical Summary ---
Author Organization [facility] Address [address] [place] [address] Care Team Providers Care Upper Extremity Surgeon Name Role Phone No, Physician Primary Care Provider [phone] Allergies No known active allergies Medications amLODIPine (NORVASC) 2.5 mg tabletIndications :Essential hypertension Take 1 tablet (2.5 mg total) by mouth daily 30 tablet 5 01/28/2025 01/29/20 26 Active Active Problems Problem Noted Date Diagnosed Date Status post bariatric surgery 09/11/2024 Assessment & Plan (09/11/2024 9:47 AM NIGHT SHIFT): Hx of Gastric Sleeve surgery in 10/22/2020 in [place], with subsequent ~100 lb weight loss. Takes [...] 09/11/2024 Assessment & Plan (09/11/2024 9:50 AM NIGHT SHIFT): Patient noted to have elevated AST to [...] 3:48 PM CDT): Routine lab monitoring on half-way HIV meds to assess for drug toxicity and efficacy. Assessment & Plan (07/05/2023 9:31 AM NIGHT SHIFT): Routine lab monitoring on middle or intermediate school principal HIV meds to assess for drug toxicity and efficacy. Assessment & Plan (09/07/2022 9:40 PM NIGHT SHIFT): Routine lab monitoring on middle or intermediate school principal HIV meds to assess for drug toxicity and efficacy. Assessment & Plan (03/05/2022 9:48 PM CDT): Routine lab monitoring on middle or intermediate school principal HIV meds to assess for drug toxicity and efficacy. Assessment & Plan (09/08/2021 11:14 AM NIGHT SHIFT): Routine lab monitoring on middle or intermediate school principal HIV meds to assess for drug toxicity and efficacy. Assessment & Plan (03/18/2021 7:42 PM CDT): Routine lab monitoring on half-way HIV meds to assess for drug toxicity and efficacy. Assessment & Plan (08/14/2020 11:24 AM NIGHT SHIFT): Routine lab monitoring on middle or intermediate school principal HIV meds to assess for drug toxicity and efficacy. Assessment & Plan (03/17/2020 12:20 PM CDT): Routine lab monitoring on middle or intermediate school principal HIV meds to assess for drug toxicity [...] 11/20/2018 Assessment & Plan (09/11/2024 9:42 AM NIGHT SHIFT): Patient was diagnosed in HIV in 2010, [...] provided. Assessment & Plan (07/05/2023 9:30 AM NIGHT SHIFT): Patient would like to consider Cabenuva- test claim sent today Will continue Genvoya in the meantime. 100% adherence encouraged to maintain viral suppression and prevent resistance. Undetectable = untransmittable. Counseling for risk reduction, adherence and pre-conception provided. Assessment & Plan (09/07/2022 9:40 PM NIGHT SHIFT): Continue Genvoya 100% adherence encouraged to maintain [...] provided. Assessment & Plan (09/08/2021 11:14 AM NIGHT SHIFT): Continue Genvoya 100% adherence encouraged to maintain viral suppression and prevent resistance. Undetectable = untransmittable. Counseling for risk reduction, adherence and pre-conception provided. Assessment & Plan (03/18/2021 7:41 PM CDT): Continue Genvoya 100% adherence encouraged to maintain viral suppression and prevent resistance. Undetectable = untransmittable. Counseling for risk reduction, adherence and pre-conception provided. Assessment & Plan (08/14/2020 11:24 AM NIGHT SHIFT): Continue Genvoya 100% adherence encouraged to maintain [...] with food - Routine lab monitoring on half-way HIV meds: CBC, CMP, CD4, VL to assess drug toxicity/efficacy - Safer sex measures reviewed - Undetectable = untransmittable History of syphilis 11/20/2018 Assessment & Plan (09/11/2024 9:43 AM NIGHT SHIFT): Diagnosed with syphilis with RPR titer 1:64 [...] 11/20/2018 Assessment & Plan (09/11/2024 9:41 AM NIGHT SHIFT): Hx of elevated RBC in setting of [...] 02/11/2017 Assessment & Plan (09/11/2024 9:44 AM NIGHT SHIFT): Currently down to smoking 1 pack per week, interested in quitting entirely. - Gave patient smoking cessation resources including [place] [employer] information. - Offered patient nicotine replacement therapy but he declined given concern for strange dreams, would like to continue weaning down in aim to quit cold turkey. Assessment & Plan (11/20/2018 12:40 PM CDT): - Now down to 1 cig/day - Patient trying to quit using nicotine gum Hyperlipidemia 10/26/2015 Assessment & Plan (09/11/2024 9:39 AM NIGHT SHIFT): Patient has history of elevated Triglycerides of [...] 08/06/2013 Assessment & Plan (09/11/2024 10:27 AM NIGHT SHIFT): Patient's BP well-controlled in clinic today. - Refilling patient's Amlodipine 2.5mg daily Assessment & Plan (09/07/2022 9:43 PM NIGHT SHIFT): Continue amlodipine Well controlled- Repeat 140/90 Assessment & Plan (03/05/2022 9:52 PM CDT): In the past, his BP normalized after his gastric sleeve surgery. However it appears to be elevating again. Discussed restarting one of his BP meds. Previously on amlodipine 5mg.Will restart at amlodipine 2.5mg daily. Patient is agreeable to this plan. Assessment & Plan (09/08/2021 11:16 AM NIGHT SHIFT): He had stopped BP meds after his [...] staff should administer the PHQ-9) 0 09/20/2020 Personal Safety Answer Date Recorded Have you ever been in or are you currently in a harmful physical or emotional relationship or is someone making you feel afraid or unsafe? Denies 12/13/2024 Sex and Gender Information Value Date Recorded Sex Assigned at Not on file Legal Sex Male 5:35 AM NIGHT SHIFT Gender Identity Not on file Sexual Orientation Not on file Last Filed Vital Signs Vital Sign Reading Time Taken Comments Blood Pressure 148/97 12/13/2024 2:10 PM CDT Pulse 91 12/13/2024 1:45 PM CDT Temperature 36.8 C (98.2 F) 12/13/2024 11:34 AM CDT Respiratory Rate 18 12/13/2024 1:45 PM CDT Oxygen Saturation 99% 12/13/2024 1:45 PM CDT Inhaled Oxygen Concentration - - Weight 79.4 kg (175 lb) 12/13/2024 11:34 AM CDT Height 172.7 cm (5' 8) 12/13/2024 11:34 AM CDT Body Mass Index 26.61 12/13/2024 11:34 AM CDT Plan of Treatment Health Maintenance Due Date Last Done Comments Hepatitis B Vaccines (3 of 3 - 3-dose series) 02/09/1997 12/15/1996, 09/16/1996 Varicella Vaccines (1 of 2 - 13+ 2-dose series) 1999 G6PD 2004 Regular Well Visit/Exam 18-64 2004 Zoster Vaccine (1 of 2) 2005 HPV Vaccines (1 - Risk 3-dos e SCDM series) 2013 Pneumococcal vaccine <65 (3 of 3 - PCV20 or PCV21) 02/14/2021 02/15/2016, 04/20/2015 Depression [...] 09/05/2022, 08/29/2021, Additional history exists Influenza Vaccine (#1) 2025 , 07/15/2018, 05/21/2017, Additional history exists RPR Screening 08/03/2025 08/03/2024, 05/3 08/2023, 11/01/2023, Additional history exists HIV+ Chlamydia and Gonorrhea Screening (Rectal) 08/04/2025 08/04/2024 HIV+ Chlamydia and Gonorrhea Screening (Throat) 08/04/2025 08/04/2024 HIV + Chlamydia and Gonorrhe a Screening (Urine) 12/13/2025 12/13/2024 Proteinuria screening Urinalysis (UA) 12/13/2025 12/13/2024, 07/15/2018, 07/15/2018, Additional history exists HLA B 5701 Typing Completed 08/06/2013 Hepatitis A Vaccines Completed 02/15/2016, 02/15/2016, 04/20/2015, Additional history exists Procedures Procedure Name Priority Date/Time Associated Diagnosis Comments URINALYSIS AND REFLEX TO MICROSCOPIC AND CULTURE STAT 12/13/2024 1:23 PM CDT RPR Routine 08/03/2024 10:28 AM NIGHT SHIFT HIV infection, unspecified symptom status (HCC) Routine [...] CDT HIV infection, unspecified symptom status (HCC) HLA B*5701 TYPING Routine 08/06/2013 2:4 0 PM NIGHT SHIFT from Last 3 Months or Most Recently Relevant to Health Maintenance Results * (ABNORMAL) Urinalysis reflex to microscopic and culture Urine (12/13/2024 1:23 PM CDT) Color, ur Yellow Yellow Clarity, ur Clear Clear [facility] Specific gravity, ur 1.018 1.003 - 1.030 [facility] pH, urine 6.0 [facility] Comment: Interpretive Data U rine pH is affected by diet, medications, systemic acid-base disturbances, and renal tubular function. pH may affect urinary stone formation. For example, urine pH below 6.0 may help reduce the tendency for calcium phosphate stones and pH greater than 6.0 may reduce the tendency for uric acid stone formation. Source: [facility] Current Interpretive Data was last revised on 2017 Protein, ur ql Negative Negative [facility] Glucose, ur ql Negative Negative [facility] Ketones, ur 1+(A) Negative [facility] Bilirubin, ur Negative Negative [facility] Blood, ur Negative Negative [facility] Urobilinogen, ur <2.0 <2.0 mg/dL [facility] Nitrite, ur Negative Negative [facility] Leukocyte esterase, ur Negative Negative [facility] UA reflex comment Reflex conditions for microscopic UA and culture not met. [facility] Urine 12/13/2024 1:23 PM CDT 12/13/2024 1:27 PM CDT Katlin Hurst NP LAB MICROBIOLOGY - GENER AL ORDERABLES Final Result [facility] [address] [facility] Department [place] [address] * (ABNORMAL) RPR Blood (08/03/2024 10:28 AM NIGHT SHIFT) RPR Reactive(A ) Nonreactive Blood 08/03/2024 10:2 8 AM NIGHT SHIFT 08/03/2024 2:11 PM NIGHT SHIFT Timoteo LONG LAB MICROBIOLOGY - GENERAL ORDERABLES Final Result [facility] [place] [address] * T-SPOT.TB Blood (11/01/2023 11:01 AM CDT) [facility] T-SPOT.TB Negative SeeBelow Comment: Normal Value: Negative [...] Panel A Spot Count 2 [facility] T-SPOT.TB Panel B Spot Count 0 [facility] T-SPOT.TB Negative Control Passed [facility] T-SPOT.TB Positive Control Passed [facility] Comment: Test Performed at: [facility] [employer] [address] [place] [id number] JILL BURNS,PHD Blood 11/01/2023 11:0 1 AM CDT 11/01/2023 2:37 PM CDT Tim[facility]o LONG LAB MICROBIOLOGY - GENERAL ORDERABLES Final Result [facility] Armando [facility] [place] [address] * Hepatitis C antibody Blood (11/01/2023 11:01 AM CDT) [facility] Hep C Ab Nonreactive Nonreactive Comment:Antibodies to HCV no t detected. Does NOT exclude the possibility of recent exposure to HCV. Current interpretive data was last revised on 22 Blood 11/01/2023 11:0 1 AM CDT 11/01/2023 2:32 PM CDT Tim[facility]o LONG LAB MICROBIOLOGY - GENERAL ORDERABLES Final Result Performing Organization Address [facility] [place] [address] * Hemoglobin A1c (11/01/2023 11:01 AM CDT) Hgb A1C 5.1 4.0 - 5.6 % Estimated Average Glucose 100 mg/dL [facility] Comment: The ADA recommends reporting an estimated [...] [facility] LAB BLOOD ORDERABLES Final Result Performing Organization Address [facility] Phone Number [facility] [place] [address] * (ABNORMAL) Lipid panel (11/01/2023 11:01 AM [...] revised on 2018. Triglycerides 159(H) <=149 mg/dL [facility] Comment: Interpretive Data Ages < or = [...] on 2018. HDL 62 >=40 mg/dL [facility] Comment: Interpretive Data Ages < or = [...] on 2018. LDL, calculated 38 <=129 mg/dL [facility] Comment: Interpretive Data Ages < or = [...] revised on 2018. Non-HDL Cholesterol 70 mg/dL [facility] Comment: Interpretive Data Ages < or = [...] last revised on 2018. Chol/HDL ratio 2 [facility] Blood 11/01/2023 11:0 1 AM CDT 11/01/2023 2:32 PM CDT us Tim[facility] LONG LAB BLOOD ORDERABLES Final Result Performing Organization Address [facility] Co de Phone Number [facility] [place] [address] * HLA B*5701 Typing (08/06/2013 2:40 PM NIGHT SHIFT) HLA B*5701 TYPING Negative QU EST HISTORICAL RESULTS Comment: The allele HLA-B*5701 is associated with Abacavir hypersensitivity reaction (HSR). A negative result for HLA-B*5701 does not rule out the possibility of Abacavir HSR. RESULTS REVIEWED BY: see note [facility] HISTORICAL RESULTS Comment: Waleska Leon, Ph.D.,D([facility]) Director, HLA and Immunogenetics References: Stewart S. et al. Lancet. 2002 Oct 2; 359 (1784): 727-32 Brooke Hodge. Clin. Inf. Dis. 2006 February; 43 (1): 99-102. Typing performed by PCR and hybridization with sequence specific oligonucleotide probes (SSO). 08/06/2013 2:40 PM NIGHT SHIFT us Aisha Pena MD LAB BLOOD ORDERABLES Final Resu lt [facility] HISTORICAL RESULTS from Last 3 Months or Most Recently Relevant to Health Maintenance Insurance ANTHEM ACCESS ANTHEM ACCESS Care Teams Upper Extremity Surgeon Relationship Specialty Start Date End Date No, Physician PCP - General 03/14/18 Maris Helm Transmission Worker Infectious Diseases 01/15/18
[2025-08-11 18:31] VITALS: BP 138/93; PULSE 88; RESP 14; TEMP 36.5; O2SAT 98
--- NOTE | 2025-08-11 18:55 | ED.WOUNDLAC ---
HPI - Wound/Laceration General Chief Complaint: Wound/Laceration Stated Complaint: lac to left index finger Time Seen by Provider: 08/11/25 18:36 Source: patient Mode of arrival: ambulatory Limitations: no limitations History of Present Illness HPI narrative: This is a 40 year old male that presents to the ER for left 2nd finger laceration. Reports he accidentally cut his finger on a metal can. Denies decreased ROM or numbness. Related Data Home Medications ?Medication ?Instructions ?Recorded ?Confirmed ?Last Taken ?Type No Home Medications 12/11/24 12/11/24 Unknown History Allergies Allergy/AdvReac Type Severity Reaction Status Date / Time zolpidem AdvReac Severe Hallucinati Verified 08/11/25 18:40 ng Review of Systems Review of Systems: All systems reviewed & are unremarkable except as noted in HPI and below PMFSH Past Medical History Medical History HIV (human immunodeficiency virus infection) (~2014) On Biktarvy Surgical History Surgical History History of sleeve gastrectomy (~2020) Performed in [place] preop weight 298 Family History Family History Other Essential hypertension Social History Social History Social History: 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 He smokes 3-4 cigarettes a day and has smoked since he was 16 years old. He drinks a few alcoholic beverages 1-2 times per week. He denies any history of illicit substance use. 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 HEAD: Normocephalic, atraumatic. EYES: EOMI. EXTREMITIES: Normal range of motion. No edema. 1.5cm linear laceration into subcutaneous tissue to the left 2nd finger dorsal surface SKIN: Warm, dry, no rash. NEURO: No focal deficits. Alert and oriented x3. PSYCH: Normal mood and affect Course Vital Signs Vital signs: Vital Signs Temperature 97.7 F 08/11/25 18:31 Pulse Rate 88 08/11/25 18:31 Respiratory Rate 14 08/11/25 18:31 Blood Pressure 138/93 H 08/11/25 18:31 Pulse Oximetry 98 08/11/25 18:31 Oxygen Delivery Room Air 08/11/25 18:31 Temperature 97.7 F 08/11/25 18:31 Pulse Rate 88 08/11/25 18:31 Respiratory Rate 14 08/11/25 18:31 Blood Pressure 138/93 H 08/11/25 18:31 Pulse Oximetry 98 08/11/25 18:31 Oxygen Delivery Room Air 08/11/25 18:31 Procedures Laceration Laceration 1: Date: 08/11/25 Site: hand Side (If applicable): right Size (cm): 1.5 Description: linear Depth: simple, single layer Local Anesthetic: lidocaine 1% Amount of anesthesia used (mL): 2 Pre-repair: wound explored and irrigated ====== Skin Level ====== Skin layer closed with: nylon Size (cm): 4-0 Number of sutures: 2 Technique: simple, interrupted ====== Subcutaneous Layer ====== ====== Muscle Layer ====== ====== Tendon Layer ====== MDM MDM Narrative Medical decision making narrative: Patient presents emergency department for laceration of the last 2nd finger. Irrigated and closed with sutures. Updated on tetanus vaccination. Neurovascularly intact. Follow-up with PCP Differential Diagnosis Differential Diagnosis: laceration, abrasion, avulsion Critical Care Time Critical Care Time Critical Care Time: No Discharge Plan Discharge Clinical Impression: Laceration Patient Disposition: Home Condition: Stable Instructions: Care For Your Stitches (ED), Laceration (ED) Additional Instructions: Return to the emergency department if you experience fever, redness or swelling of your wound, abnormal drainage from your wound, or any other symptoms that are concerning to you. Apply antibiotic ointment daily. Do not soak the wound. Clean with mild soap and water daily Follow-up with primary care doctor for suture removal in 10-14 days. Patient Language: Botswanan Prescriptions: No Action No Home Medications Follow-up/Referrals: Maikel Bangura MD [Physician, Family Practice] UNKNOWN,DOCTOR [Primary Care Provider] Stand Alone Forms: Work/School Release IP
[2025-08-11] MEDS: LIDOCAINE 1% LOCAL INJ 10 ML VIAL INFILTRATE (19:05)
[2025-08-11] MEDS: TETANUS,DIPHTHERIA,AC PERTUSSIS ADULT (0.5 ML) BOOSTRIX IM (19:07)
--- OUTSIDE RECORDS SUMMARY | 2025-08-11 19:47 | XMS_ITS | Continuity of Care Document ---
Author Organization [facility] () Address [address] [address] Assessment No assessment recorded. Plan of Treatment Reminders Order Date Submit Date Provider Last Modified By Organization Details Last Modified Time Details Appointments ANY 30 2025 10:30A M Omaira Mondragon NP Not available Not available Not available Lab HIV-1 RNA, quantitat stacie, PCR, serum or plasma 2024 [facility], [address] [place] [address], [address], [place], [address], 06/14/2025 15:11:51 cd4 T-cells, blood 2024 [facility], [address] [place] [address], [address], [place], [address], 06/14/2025 15:11:51 RPR (rapid plasma reagin), serum 2024 [facility], [address] [place] [address], [address], [place], [address], 06/14/2025 15:11:52 chlamydia trachomat is + neisseria gonorrhoe ae + trichomon as vaginalis rRNA panel, TIMOTHY+probe 2024 [facility], [address] [place] [address], [address], [place], [address], 06/14/2025 15:11:50 Referral None recorded. Procedures None recorded. Surgeries None recorded. Imaging None recorded. Medication Orders nystatin 100,000 unit/mL oral suspensio n 2024 [facility] #[id number], [address] , [place], [place], [id number], 07/02/2025 05:02:33 Cabenuva 600 mg/3 mL-900 mg/3 mL IM suspensio n, extended release 2024 [facility] ([facility]) #[id number], [address] [place] [address], [phone], 06/11/2025 12:19:58 Patient TargetsNo targets recorded. Patient Instructions Encounter Date Encounter Id Patient Instructions Last Modified By Organization Details Last Modified Time 06/11/2025 [id number] Quitting Tobacco : Care Instructions Not available 06/11/2025 15:01:50 Reason for Referral None Reported. Results Created Date Observation Date Name Description Value Unit Range Abnormal Flag Note LastModifiedBy Organization Detail LastModifiedTime 06/11/2006/14/2025 CT, NG, TRICH VAG BY TIMOTHY chlamydia by TIMOTHY NEGATI VE negati ve Not Available [facility] ([facility]) [address] [place], [address], 06/14/2025 15:11:50 06/11/2006/14/2025 CT, NG, TRICH VAG BY TIMOTHY gonococcus by TIMOTHY NEGATI VE negati ve Not Available [facility] ([facility]) [address] [place], [address], 06/14/2025 15:11:50 06/11/2006/14/2025 CT, NG, TRICH VAG BY TIMOTHY trich vag by TIMOTHY NEGATI VE negati ve Not Available [facility] ([facility]) [address] [place], [address], 06/14/2025 15:11:50 06/11/2006/12/2025 HELPE R T-LYM PH-CD 4 WBC 5.7 x10e3 /uL 3.4-10 .8 Not Available [facility] ([facility]) [address] [facility], [place], [address], 06/14/2025 15:11:51 06/11/2006/12/2025 HELPE R T-LYM PH-CD 4 RBC 4.35 x10e6 /uL 4.14-5 .80 Not Available [facility] ([facility]) [address] [facility], [place], [address], 06/14/2025 15:11:51 06/11/2006/12/2025 HELPE R T-LYM PH-CD 4 hemoglobin 16.5 g/dL 13.0-1 7.7 Not Available [facility] ([facility]) [address] [facility], [place], [address], 06/14/2025 15:11:51 06/11/2006/12/2025 HELPE R T-LYM PH-CD 4 hematocrit 47.3 % 37.5-5 1.0 Not Available [facility] ([facility]) [address] [facility], [place], [address], 06/14/2025 15:11:51 06/11/2006/12/2025 HELPE R T-LYM PH-CD 4 MCV 109 fL 79-97 above high normal Not Available [facility] ([facility]) [address] [place], [address], 06/14/2025 15:11:51 06/11/2006/12/2025 HELPE R T-LYM PH-CD 4 MCH 37.9 pg 26.6-3 3.0 above high normal Not Available [facility] ([facility]) [address] [place], [address], 06/14/2025 15:11:51 06/11/2006/12/2025 HELPE R T-LYM PH-CD 4 MCHC 34.9 g/dL 31.5-3 5.7 Not Available [facility] ([facility]) [address] [facility], [place], [address], 06/14/2025 15:11:51 06/11/2006/12/2025 HELPE R T-LYM PH-CD 4 RDW 11.7 % 11.6-1 5.4 Not Available [facility] ([facility]) [address] [facility], [place], [address], 06/14/2025 15:11:51 06/11/2006/12/2025 HELPE R T-LYM PH-CD 4 platelets 131 x10e3 /uL 150-45 0 below low normal Not Available [facility] ([facility]) [address] [facility], [place], [address], 06/14/2025 15:11:51 06/11/2006/12/2025 HELPE R T-LYM PH-CD 4 neutrophils 32 % notest ab. Not Available [facility] ([facility]) [address] [facility], [place], [address], 06/14/2025 15:11:51 06/11/2006/12/2025 HELPE R T-LYM PH-CD 4 lymphs 52 % notest ab. Not Available [facility] ([facility]) [address] [facility], [place], [address], 06/14/2025 15:11:51 06/11/2006/12/2025 HELPE R T-LYM PH-CD 4 monocytes 10 % notest ab. Not Available [facility] ([facility]) [address] [facility], [place], [address], 06/14/2025 15:11:51 06/11/2006/12/2025 HELPE R T-LYM PH-CD 4 eos 5 % notest ab. Not Available [facility] ([facility]) [address] [facility], [place], [address], 06/14/2025 15:11:51 06/11/2006/12/2025 HELPE R T-LYM PH-CD 4 basos 1 % notest ab. Not Available [facility] ([facility]) [address] [facility], [place], [address], 06/14/2025 15:11:51 06/11/2006/12/2025 HELPE R T-LYM PH-CD 4 neutrophils (absolute) 1.8 x10e3 /uL 1.4-7. 0 Not Available [facility] ([facility]) [address] [facility], [place], [address], 06/14/2025 15:11:51 06/11/2006/12/2025 HELPE R T-LYM PH-CD 4 lymphs (absolute) 2.9 x10e3 /uL 0.7-3. 1 Not Available [facility] ([facility]) [address] [facility], [place], [address], 06/14/2025 15:11:51 06/11/2006/12/2025 HELPE R T-LYM PH-CD 4 monocytes(ab solute) 0.6 x10e3 /uL 0.1-0. 9 Not Available [facility] ([facility]) [address] [facility], [place], [address], 06/14/2025 15:11:51 06/11/2006/12/2025 HELPE R T-LYM PH-CD 4 eos (absolute) 0.3 x10e3 /uL 0.0-0. 4 Not Available [facility] ([facility]) [address] [place], [address], 06/14/2025 15:11:51 06/11/2006/12/2025 HELPE R T-LYM PH-CD 4 baso (absolute) 0.1 x10e3 /uL 0.0-0. 2 Not Available [facility] ([facility]) [address] [facility], [place], [address], 06/14/2025 15:11:51 06/11/2006/12/2025 HELPE R T-LYM PH-CD 4 immature granulocytes 0 % notest ab. Not Available [facility] ([facility]) [address] [facility], [place], [address], 06/14/2025 15:11:51 06/11/2006/12/2025 HELPE R T-LYM PH-CD 4 immature grans (abs) 0.0 x10e3 /uL 0.0-0. 1 Not Available [facility] ([facility]) [address] [facility], [place], [address], 06/14/2025 15:11:51 06/11/2006/14/2025 HELPE R T-LYM PH-CD 4 absolute cd 4 helper 1128 /uL 359-15 19 Not Available [facility] ([facility]) [address] [facility], [place], [address], 06/14/2025 15:11:51 06/11/2006/14/2025 HELPE R T-LYM PH-CD 4 % cd 4 pos. lymph. 38.9 % 30.8-5 8.5 Not Available [facility] ([facility]) [address] [place], [address], 06/14/2025 15:11:51 06/11/2006/14/2025 RNA, REAL TIME PCR (NON- GRAPH ) HIV-1 RNA by PCR 30 copie s/mL The repor table range for this assay is 20 to 10,00 0,000 copie s HIV-1 RNA/m L. Not Available [facility] ([facility]) [address] [facility], [place], [address], 06/14/2025 15:11:51 06/11/2006/14/2025 RNA, REAL TIME PCR (NON- GRAPH ) log10 HIV-1 RNA 1.477 log10 copy/ mL Not Available [facility] ([facility]) [address] [place], [address], 06/14/2025 15:11:51 06/11/2006/12/2025 RPR, RFX QN RPR/C ONFIR M TP RPR REACTI VE nonrea ctive abnormal Not Available [facility] ([facility]) [address] [place], [address], 06/14/2025 15:11:52 06/11/2006/12/2025 RPR QN+TP ABS RPR, quant. 1:2 titer nonrea <1:1 above high normal Not Available [facility] ([facility]) [address] [place], [address], 06/14/2025 15:11:52 06/11/2006/12/2025 RPR QN+TP ABS interpretati on: Commen t Syphi lis: RPR with Refle x to RPR Titer and Trepo nemal Antib odies , Tradi cesar l Scree eduard and Diagn osis Algor ithm ----- ----- ----- ----- ----- ----- ----- ----- ----- ----- ----- ----- Trepo nemal RPR RPR, Qn Ab Final Inter preta tion ----- --- ----- ---- ----- ----- ----- ----- ----- ----- ---- Non N/A N/A No labor atory evide nce React stacie of syphi lis. Retes t in 2-4 weeks if recen t expos ure is suspe cted. ----- --- ----- ---- ----- ----- ----- ----- ----- ----- ---- React stacie >/=1: 1 Non Nontr epone mal antib odies React stacie detec vasiliy. Syphi lis unlik radha; biolo gical false posit stacie possi ble. Retes t in 2-4 weeks if recen t expos ure is suspe cted. ----- --- ----- ---- ----- ----- ----- ----- ----- ----- ---- React stacie >/=1: 1 React stacie Trepo nemal and nontr epone mal antib odies detec vasiliy. Consi stent with past or curre nt (pote ntial early ) syphi lis. Not Available [facility] ([facility]) [address] [place], [address], 06/14/2025 15:11:52 06/11/2006/14/2025 RPR QN+TP ABS treponema pallidum antibodies Reacti ve nonrea ctive abnormal Not Available [facility] ([facility]) [address] [facility], [place], [address], 06/14/2025 15:11:52 Result Notes None recorded. Problems Name Problem SNOMED Code Status Onset Date Resolution Date Notes Provider Name and Address Organization Details Recorded Time Gonorrhe a 54238891 Completed 202003/23/2025 Removal Reason: treated OMAIRA MONDRAGON NP Attn: Saige moise,[address] [facility], [place], [address], [facility] 5 15:04:31 History of syphilis [id number] 60399 Active 2020 and 03/09 treated also OMAIRA MONDRAGON NP Attn: Saige moise,[address] [facility], [place], [address], [facility] 5 15:06:41 Gonorrhe a of pharynx [id number] Completed 202203/23/2025 OMAIRA MONDRAGON NP Attn: Saige moise,[address] [facility], [place], [address], [facility] 15:05:49 Infectio n by Shigella [id number] Completed 202412/16/2024 OMAIRA MONDRAGON NP Attn: Saige moise,[address] [facility], [place], [address], [facility] 00:12:02 Problem Notes None recorded. Procedures Surgical History Date Name Laterality Status Provider Name and Address Organization Details Recorded Time 11/06/19 laparoscopic sleeve gastrectomy completed OMAIRA MONDRAGON NP Attn: Accounting,[address] [facility], [place], [address], [facility] 03/23/2025 11:14:18 Imaging Results None recorded. Procedure Notes None recorded. Medical Equipment None Reported. Allergies No known drug allergies Medications Name Sig Start Date Stop Date Status Note LastModified by Organization Details LastModified Time nystatin 100,000 unit/mL oral suspension Take 5 mL 4 times a day by oral route as directed for 14 days. 07/02 completed Not Available Not Available Not Available sulfamethox azole 800 mg-trimetho prim 160 mg tablet TAKE 1 TABLET BY MOUTH EVERY 12 HOURS 03/23 completed Not Available Not Available Not Available Heartburn Relief (famotidine ) 10 mg tablet TAKE 1 TABLET BY MOUTH DAILY 06/10 completed Not Available Not Available Not Available Cabenuva 600 mg/3 mL-900 mg/3 mL IM suspension, extended release INJECT 600MG INTRAMUSC ULARLY EVERY 2 MONTHS active Not Available Not Available No t Available Vitals Date Recorded Body height Body mass index (BMI) Body weight Oxygen saturation Heart rate Respiratory rate Body temperature Systolic And Diastolic Provider Name and Address Organization Details Last Updated DateTime 172.72 cm 27.6 kg/m2 34828.6 2 g 97 % 108 /min 18 /min 98.4 [degF] 117/79 mm[Hg] Lisa Arizmendi MA [facility] 11:52:27 Social History Question Answer Notes LastModified by Organizat ion Details LastModified Time Tobacco Smoking Status Current Every Day Smoker Lisa Arizmendi MA [facility], [place] - [facility] 03/23/2025 10:41:05 Do You Have An Advance Directive? No Information n ot available 03/23/2025 Are You Blind Or Do You Have Difficulty Seeing? No Information n ot available 03/23/2025 In The 14 Days Before Symptom Onset, Have You Had Close Contact With A Laboratory-confirm ed COVID-19 While That Case Was Ill? No Information n ot available 03/23/2025 In The 14 Days Before Symptom Onset, Have You Had Close Contact With A Person Who Is Under Investigation For COVID-19 While That Person Was Ill? No Information not available 03/23/2025 Have You Been To An Area Known To Be High Risk For COVID-19? No Information not available 03/23/2025 Are You Deaf Or Do You Have Serious Difficulty Hearing? No Information not available 03/23/2025 What Type Of Diet Are You Following? REGULAR Information n ot available 03/23/2025 Are There Any Guns Present In Your Home? No Information not available 03/23/2025 RWE Slide Cap On Charges 7319.32 [email or web address] Information not available 04/20/2025 HIV Dx By [facility] No Informatio n not available 03/18/2025 HIV QI Project No Informa tion not available 03/18/2025 New Patient Type At Intake Relocating/t ransfering Care Information not available 03/18/2025 URN 25221 Information no t available 03/18/2025 Environmental Research Project Manager / Phone # Edwina Ceballos ([phone]) Information not available 03/18/2025 Environmental Research Project ManagerKnitter Helper [facility] Information not available 03/18/2025 Risk Factor 1 (MSM) Men Who Have Sex With Men Information not available 03/18/2025 Program Designation Kevin Miranda Information not available 03/18/2025 HIV Diagnosis Date 03/19/2012 Inform ation not available 03/18/2025 What Was The Date Of Your Most Recent Tobacco Screening? 06/11/2025 Information not available 06/11/2025 How Many Children Do You Have? 0 Information not available 03/23/2025 What Is Your Relationship Status? Single Information not available 03/23/2025 Do You Use Your Seat Belt Or Car Seat Routinely? Yes Information not available 03/23/2025 Are You Sexually Active? No Information not available 03/23/2025 Do You Have Smoke And Carbon Monoxide Detectors In Your Home? Yes Information not available 03/23/2025 Are You Passively Exposed To Smoke? No Information no t available 03/23/2025 Do You Use Sunscreen Routinely? No Information not available 03/23/2025 Has Tobacco Cessation Counseling Been Provided? Yes Information not available 03/23/2025 On What Date Was Tobacco Cessation Counseling Provided? 06/11/2025 Information not available 06/11/2025 Sex: Unknown Functional Status Question Answer Note LastModified by Organization D etails LastModified Time Are you currently employed? No Information not available 03/23/2025 Are you able to care for yourself independently? Yes Information not available 03/23/2025 Mental Status Question Answer Note LastModified by Organization D etails LastModified Time Do you feel stressed (tense, restless, nervous, or anxious, or unable to sleep at night)? [id number] Information not available 03/23/2025 Family History Relationship Description Onset Age of this Age Resolved Age Notes LastModified by Organization Details LastModified Time Father No current problems or disability Not available 12/2024 11:13:02 Mother No current problems or disability Not available 12/2024 11:13:02 Medical History Condition Response Coronary Artery Disease N Other N Atrial Fibrillation N High Blood Pressure Y Thyroid Problems N Kidney or Bladder Problems N Depression N COPD N Blood Clots N GI Problems N Have you had a mammogram in the last yea r? N Skin Problems N Eating Disorder N Anemia N Heart Attack (NV) N Diabetes N Anxiety Disorder N Muscle, Joint, or Bone Problems N Seizures/Epilepsy N Have you had a colonoscopy in the last 1 0 years? N Arthritis N Acid Reflux (GERD) N Cancer N Stroke N Allergies N Asthma N Have you had a PSA blood test in the las t year? N ADHD N Substance Abuse N High Cholesterol N Hepatitis N Liver Disease N Schizophrenia N Headaches N Osteoporosis N Heart Failure N Immunizations Vaccine Type Date Status Note Provider Nam e and Address Organization Details Recorded Time DTP 6 completed Not Available [facility] 04/13/2025 16:49:11 OPV, trivalent 6 completed Not Available [facility] 04/13/2025 16:49:11 DTP 6 completed Not Available [facility] 04/13/2025 16:49:11 OPV, trivalent 6 completed Not Available [facility] 04/13/2025 16:49:11 DTP 7 completed Not Available [facility] 04/13/2025 16:49:11 OPV, trivalent 7 completed Not Available [facility] 04/13/2025 16:49:11 MMR 8 completed Not Available [facility] 04/13/2025 16:49:11 DTP 9 completed Not Available [facility] 04/13/2025 16:49:11 OPV, trivalent 9 completed Not Available [facility] 04/13/2025 16:49:11 OPV, trivalent 1 completed Not Available [facility] 04/13/2025 16:49:11 DTP 1 completed Not Available [facility] 04/13/2025 16:49:11 MMR 1 completed Not Available [facility] 04/13/2025 16:49:11 Hep B, adolescent or pediatric 7 completed Not Available [facility] 04/13/2025 16:49:11 Hep B, adolescent or pediatric 7 completed Not Available [facility] 04/13/2025 16:49:11 pneumococcal polysaccharide PPV23 06/29/201 6 completed Not Available [facility] 04/13/2025 16:49:11 Hep A, adult 6 completed Not Available [facility] 04/13/2025 16:49:11 Influenza, split virus, trivalent, PF 6 completed Not Available [facility] 04/13/2025 16:49:11 Influenza, split virus, trivalent, PF 7 completed Not Available [facility] 04/13/2025 16:49:11 Influenza, MDCK, quadrivalent, PF 0 completed Not Available [facility] 04/13/2025 16:49:11 COVID-19, mRNA, LNP-S, PF, 100 mcg/0.5mL dose or 50 mcg/0.25mL dose 2 completed Not Available [facility] 04/13/2025 16:49:11 COVID-19, mRNA, LNP-S, PF, 100 mcg/0.5mL dose or 50 mcg/0.25mL dose 2 completed Not Available [facility] 04/13/2025 16:49:11 Past Encounters Encounter ID Performer Location Encounter Start Date Encounter Closed Date Diagnosis/Indication Diagnosis SNOMED-CT Code Diagnosis ICD10 Code Diagnosis IMO Codes Diagnosis Note [id number] OMAIRA MONDRAGON NP [facility] () [address] [address] 06/11/2025 11:43:44 06/22/2025 13:13:26 Overweight in adulthood with body mass index of 25 or more but less than 30 302547356 E66.3 Z68.27 1036751293 Smoker 36339891 F17.200 Human immunodeficiency virus infection 21660006 B20 83869 1. patient to receive Cabenuva injection today2. patient instructed to follow up in 2 months for next injection3 . labs today to check CD4 and viral load4. patient admits that he is sexually active with his only offered doxy PEP patient declined at present Candidiasis of mouth 797 14479 B37.0 36548 Take all prescribed antifungal medication s exactly as directed (examples: nystatin mouth rinse, fluconazol e tablets, or clotrimazo le troches). Swish and hold mouth rinses for the wire mesh filter fabricator prescribed before swallowing or spitting out, depending on directions . Continue medication for the full course, even if symptoms improve early.Brus h teeth twice daily and rinse mouth after meals. Avoid mouthwashe s containing alcohol, which can worsen irritation . Rinse mouth after using inhalers, if applicable . Keep dentures clean; remove and soak nightly if you wear them. Health Concerns Section Related Observation LastModified by Organization Detai ls LastModified Time None Recorded Concern Status LastModified by Organization Details LastModified Time None Recorded Payers Encounter Date Sequence Insurance Name Policy Number Policy Jean Covered Member ID Jean Member ID Guarantor Name 06/11/2025 1 *SELF PAY* [facility] Dept Notes Date Note Type Note Provider Name and Address Organization Details Recorded Time 06/11/2025 text/html 40-year-old male with a history of HIV currently on Cabenuva his last injection was who recently transferred his care to [facility] presents today for his Cabenuva injection his last injection was April 13, 2025. he admits that he has done well with his injections he denies any side effects in his viral load was previously undetectable OMAIRA MONDRAGON NP Attn: Accounting,[address] [facility], [place], [address], [facility] 06/14/2025 00:22:14
--- OUTSIDE RECORDS SUMMARY | 2025-08-11 19:48 | XMS_ITS | Clinical Summary ---
Author Organization [facility] Address [address] [place] [address] Care Team Providers Care Homeworker Name Role Phone No, Physician Primary Care Provider [phone] Allergies No known active allergies Medications amLODIPine (NORVASC) 2.5 mg tabletIndications :Essential hypertension Take 1 tablet (2.5 mg total) by mouth daily 30 tablet 5 01/28/2025 01/29/20 26 Active Active Problems Problem Noted Date Diagnosed Date Status post bariatric surgery 09/11/2024 Assessment & Plan (09/11/2024 9:47 AM TRAVEL PROFESSIONAL): Hx of Gastric Sleeve surgery in 10/22/2020 in [place], with subsequent ~100 lb weight loss. Takes [...] 09/11/2024 Assessment & Plan (09/11/2024 9:50 AM TRAVEL PROFESSIONAL): Patient noted to have elevated AST to [...] 3:48 PM CDT): Routine lab monitoring on [facility] med[facility] to assess for drug toxicity and efficacy. Assessment & Plan (07/05/2023 9:31 AM TRAVEL PROFESSIONAL): Routine lab monitoring on buttermaker helper HIV meds to assess for drug toxicity and efficacy. Assessment & Plan (09/07/2022 9:40 PM TRAVEL PROFESSIONAL): Routine lab monitoring on buttermaker helper HIV meds to assess for drug toxicity and efficacy. Assessment & Plan (03/05/2022 9:48 PM CDT): Routine lab monitoring on buttermaker helper HIV meds to assess for drug toxicity and efficacy. Assessment & Plan (09/08/2021 11:14 AM TRAVEL PROFESSIONAL): Routine lab monitoring on buttermaker helper HIV meds to assess for drug toxicity and efficacy. Assessment & Plan (03/18/2021 7:42 PM CDT): Routine lab monitoring on prison HIV meds to assess for drug toxicity and efficacy. Assessment & Plan (08/14/2020 11:24 AM TRAVEL PROFESSIONAL): Routine lab monitoring on buttermaker helper HIV meds to assess for drug toxicity and efficacy. Assessment & Plan (03/17/2020 12:20 PM CDT): Routine lab monitoring on buttermaker helper HIV meds to assess for drug [...] 11/20/2018 Assessment & Plan (09/11/2024 9:42 AM TRAVEL PROFESSIONAL): Patient was diagnosed in HIV in 2010, [...] provided. Assessment & Plan (07/05/2023 9:30 AM TRAVEL PROFESSIONAL): Patient would like to consider Cabenuva- test claim sent today Will continue Genvoya in the meantime. 100% adherence encouraged to maintain viral suppression and prevent resistance. Undetectable = untransmittable. Counseling for risk reduction, adherence and pre-conception provided. Assessment & Plan (09/07/2022 9:40 PM TRAVEL PROFESSIONAL): Continue Genvoya 100% adherence encouraged to maintain [...] provided. Assessment & Plan (09/08/2021 11:14 AM TRAVEL PROFESSIONAL): Continue Genvoya 100% adherence encouraged to maintain viral suppression and prevent resistance. Undetectable = untransmittable. Counseling for risk reduction, adherence and pre-conception provided. Assessment & Plan (03/18/2021 7:41 PM CDT): Continue Genvoya 100% adherence encouraged to maintain viral suppression and prevent resistance. Undetectable = untransmittable. Counseling for risk reduction, adherence and pre-conception provided. Assessment & Plan (08/14/2020 11:24 AM TRAVEL PROFESSIONAL): Continue Genvoya 100% adherence encouraged to maintain [...] with food - Routine lab monitoring on prison HIV meds: CBC, CMP, CD4, VL to assess drug toxicity/efficacy - Safer sex measures reviewed - Undetectable = untransmittable History of syphilis 11/20/2018 Assessment & Plan (09/11/2024 9:43 AM TRAVEL PROFESSIONAL): Diagnosed with syphilis with RPR titer 1:64 [...] 11/20/2018 Assessment & Plan (09/11/2024 9:41 AM TRAVEL PROFESSIONAL): Hx of elevated RBC in setting of [...] 02/11/2017 Assessment & Plan (09/11/2024 9:44 AM TRAVEL PROFESSIONAL): Currently down to smoking 1 pack per week, interested in quitting entirely. - Gave patient smoking cessation resources including [place] [facility] information. - Offered patient nicotine replacement therapy but he declined given concern for strange dreams, would like to continue weaning down in aim to quit cold turkey. Assessment & Plan (11/20/2018 12:40 PM CDT): - Now down to 1 cig/day - Patient trying to quit using nicotine gum Hyperlipidemia 10/26/2015 Assessment & Plan (09/11/2024 9:39 AM TRAVEL PROFESSIONAL): Patient has history of elevated Triglycerides of [...] 08/06/2013 Assessment & Plan (09/11/2024 10:27 AM TRAVEL PROFESSIONAL): Patient's BP well-controlled in clinic today. - Refilling patient's Amlodipine 2.5mg daily Assessment & Plan (09/07/2022 9:43 PM TRAVEL PROFESSIONAL): Continue amlodipine Well controlled- Repeat 140/90 Assessment & Plan (03/05/2022 9:52 PM CDT): In the past, his BP normalized after his gastric sleeve surgery. However it appears to be elevating again. Discussed restarting one of his BP meds. Previously on amlodipine 5mg.Will restart at amlodipine 2.5mg daily. Patient is agreeable to this plan. Assessment & Plan (09/08/2021 11:16 AM TRAVEL PROFESSIONAL): He had stopped BP meds after his [...] on file Legal Sex Male 5:35 AM TRAVEL PROFESSIONAL Gender Identity Not on file Sexual Orientation [...] PM CDT RPR Routine 08/03/2024 10:28 AM TRAVEL PROFESSIONAL HIV infection, unspecified symptom status (HCC) Routine [...] B*[id number] TYPING Routine 08/06/2013 2:4 0 PM TRAVEL PROFESSIONAL from Last 3 Months or Most Recently Relevant to Health Maintenance Results * (ABNORMAL) Urinalysis reflex to microscopic and culture Urine (12/13/2024 1:23 PM CDT) Color, ur Yellow Yellow Clarity, ur Clear Clear [facility] Specific gravity, ur 1.018 1.003 - 1.030 [facility] pH, urine 6.0 [facility] Comment: Interpretive Data U rine pH is affected by diet, medications, systemic acid-base disturbances, and renal tubular function. pH may affect urinary stone formation. For example, urine pH below 6.0 may help reduce the tendency for calcium phosphate stones and pH greater than 6.0 may reduce the tendency for uric acid stone formation. Source: [facility] Current Interpretive Data was last revised on 2017 Protein, ur ql Negative Negative [facility] Glucose, ur ql Negative Negative [facility] Ketones, ur 1+(A) Negative [facility] Bilirubin, ur Negative Negative [facility] Blood, ur Negative Negative [facility] Urobilinogen, ur <2.0 <2.0 mg/dL [facility] Nitrite, ur Negative Negative [facility] Leukocyte esterase, ur Negative Negative [facility] UA reflex comment Reflex conditions for microscopic UA and culture not met. [facility] Urine 12/13/2024 1:23 PM CDT 12/13/2024 1:27 PM CDT Katlin Hurst NP LAB MICROBIOLOGY - GENER AL ORDERABLES Final Result [facility] [address] Department [place] [address] * (ABNORMAL) RPR Blood (08/03/2024 10:28 AM TRAVEL PROFESSIONAL) RPR Reactive(A ) Nonreactive Blood 08/03/2024 10:2 8 AM TRAVEL PROFESSIONAL 08/03/2024 2:11 PM TRAVEL PROFESSIONAL Timoteo LONG LAB MICROBIOLOGY - GENERAL ORDERABLES Final Result [facility] Department [place] [address] * T-SPOT.TB Blood (11/01/2023 11:01 AM CDT) [facility] T-SPOT.TB Negative SeeBelow Comment: Normal Value: Negative [...] test. T-SPOT.TB Panel A Spot Count 2 [facility] T-SPOT.TB Panel B Spot Count 0 [facility] T-SPOT.TB Negative Control Passed [facility] T-SPOT.TB Positive Control Passed [facility] Comment: Test Performed at: [facility] [email or web address] [address] [place] [id number] JILL BURNS,PHD Blood 11/01/2023 11:0 1 AM CDT 11/01/2023 2:37 PM CDT Timoteo LONG LAB MICROBIOLOGY - GENERAL ORDERABLES Final Result JOSIAH RODRIGUEZ [facility] [place] [address] * Hepatitis C antibody Blood (11/01/2023 11:01 AM CDT) [facility] Hep C Ab Nonreactive Nonreactive Comment:Antibodies to HCV no t detected. Does NOT exclude the possibility of recent exposure to HCV. Current interpretive data was last revised on 22 Blood 11/01/2023 11:0 1 AM CDT 11/01/2023 2:32 PM CDT Timoteo LONG LAB MICROBIOLOGY - GENERAL ORDERABLES Final Result Performing Organization Address [facility] [place] [address] * Hemoglobin A1c (11/01/2023 11:01 AM CDT) Hgb A1C 5.1 4.0 - 5.6 % Estimated Average Glucose 100 mg/dL [facility] Comment: The ADA recommends reporting an [...] BLOOD ORDERABLES Final Result Performing Organization Address [facility] Phone Number [facility] [place] [address] * (ABNORMAL) Lipid panel (11/01/2023 11:01 AM [...] revised on 2018. Triglycerides 159(H) <=149 mg/dL [facility] Comment: Interpretive Data Ages < or [...] on 2018. HDL 62 >=40 mg/dL [facility] Comment: Interpretive Data Ages < or = [...] on 2018. LDL, calculated 38 <=129 mg/dL [facility] Comment: Interpretive Data Ages < or [...] revised on 2018. Non-HDL Cholesterol 70 mg/[facility] Comment: Interpretive Data Ages < or = [...] last revised on 2018. Chol/HDL ratio 2 [facility] Blood 11/01/2023 11:0 1 AM CDT 11/01/2023 2:32 PM CDT us Timoteo LONG LAB BLOOD ORDERABLES Final Result Performing Organization Address [facility] Co de Phone Number [facility] Department [place] [address] * HLA B*5701 Typing (08/06/2013 2:40 PM TRAVEL PROFESSIONAL) HLA B*5701 TYPING Negative QU EST HISTORICAL RESULTS Comment: The allele HLA-B*5701 is associated with Abacavir hypersensitivity reaction (HSR). A negative result for HLA-B*5701 does not rule out the possibility of Abacavir HSR. RESULTS REVIEWED BY: see note [facility] HISTORICAL RESULTS Comment: Waleska Leon, Ph.D.,D([facility]) Director, HLA and Immunogenetics References: Stewart S. et al. Lancet. 2002 Oct 2; 359 (4506): 727-32 Brooke Hodge. Clin. Inf. Dis. 2006 February; 43 (1): 99-102. Typing performed by PCR and hybridization with sequence specific oligonucleotide probes (SSO). 08/06/2013 2:40 PM TRAVEL PROFESSIONAL us Aisha Pena MD LAB BLOOD ORDERABLES Final Resu lt [facility] HISTORICAL RESULTS from Last 3 Months or Most Recently Relevant to Health Maintenance Insurance ANTHEM ACCESS ANTHEM ACCESS Care Teams Homeworker Relationship Specialty Start Date End Date No, Physician PCP - General 03/14/18 Maris Helm Dust Mixer Infectious Diseases 01/15/18
--- OUTSIDE RECORDS SUMMARY | 2025-08-11 19:48 | XMS_ITS | Data Portability ---
Author Organization [place] Address [address] [facility] [place] [address] Assessment Encounter Date Assessment Date Assessment LastModified by Organization Details LastModified Time 03/23/2025 03/23/2025 records have been requested from [facility] clinic Not available 03/23/2025 15:08:18 Plan of Treatment Reminders Order Date Submit Date Provider Last Modified By Organization Details Last Modified Time Details Appointments ANY 30 2025 10:30A M Ángela Mead NP Not available Not available Not available Lab HIV-1 RNA, quantitat stacie, PCR, serum or plasma 2024 [facility], [address] [place] [address], [facility] [address], [place], [address], 06/14/2025 15:11:51 cd4 T-cells, blood 2024 [facility], [address] [place] [address], [facility] [address], [place], [address], 06/14/2025 15:11:51 RPR (rapid plasma reagin), serum 2024 [facility], [address] [place] [address], [facility] [address], [place], [address], 06/14/2025 15:11:52 chlamydia trachomat is + neisseria gonorrhoe ae + trichomon as vaginalis rRNA panel, TIMOTHY+probe 2024 025 [facility], [address], [place], [address], 06/14/2025 15:11:50 urinalysi s, complete 2024 025 [facility]MILAY[facility] HERNÁNDEZ, [address], [address], [place], [address], 04/03/2025 16:11:31 hepatitis B surface Ab, qualitati ve, serum 2024 025 [facility]AY[facility] HERN[facility]NDE[facility], [facility], [place], [address], 04/03/2025 16:11:32 RPR (rapid plasma reagin), serum 2024 025 FUNMILAY[facility] HERN[facility]NDEZ, [address] [facility], [address], [place], [address], 04/03/2025 16:11:33 chlamydia trachomat is + neisseria gonorrhoe ae + trichomon as vaginalis rRNA panel, TIMOTHY+probe 2024 025 FUNMILAYO HERNÁNDEZ, [address], [address], [place], [address], 04/03/2025 16:11:25 lipid panel, serum or plasma 2024 025 [facility]DEZ, [facility], [address], [place], [address], 04/03/2025 16:11:26 CMP, serum or plasma 2024 025 FUNMILAYO HERNÁNDEZ, [address], [address], [place], [address], 04/03/2025 16:11:27 cd4 T-cells, blood 2024 025 [facility], [address], [address], [place], [address], 04/03/2025 16:11:28 HIV-1 RNA, quantitat stacie, PCR, serum or plasma 2024 025 [facility], [address], [address], [place], [address], 04/03/2025 16:11:29 drug screen, urine 2024 025 [facility], [address], [address], [place], [address], 04/03/2025 16:11:30 HIV 1 + 2, meaningfu l use set 2024 025 [facility], [address], [address], [place], [address], 04/03/2025 16:11:35 Hepatitis C IgG Ab, qual, serum 2024 025 clogailyma [facility], [address], [address], [place], [address], 03/31/2025 08:31:24 Mycobacte rium tuberculo sis stimulate d gamma interfero n, qual, blood 2024 025 clogailyma [facility], [address], [address], [place], [address], 03/31/2025 08:31:24 HBsAg (hepatiti s B surface Ag), EIA, serum 2024 025 clogailyma [facility], [address], [address], [place], [address], 03/31/2025 08:31:24 HIV 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 Procedures None recorded. Surgeries None recorded. Imaging None recorded. Medication Orders nystatin 100,000 unit/mL oral suspensio n 2024 [id number], [address] [facility], [place], [place], [id number], 07/02/2025 05:02:33 Cabenuva 600 mg/3 mL-900 mg/3 mL IM suspensio n, extended release 2024 025 [facility] ([facility]) #[id number], [address] [place] [address], [id number], 06/11/2025 12:19:58 Cabenuva 600 mg/3 mL-900 mg/3 mL IM suspensio n, extended release 2024 025 Not available 04/19/2025 01:53:01 Cabenuva 600 mg/3 mL-900 mg/3 mL IM suspensio n, extended release 2024 025 [facility] ([facility]) #[id number], [address] [place] [address], [id number], 04/19/2025 01:53:12 Cabenuva 600 mg/3 mL-900 mg/3 mL IM suspensio n, extended release 2024 025 [facility] ([facility]) #[id number], [address] [place] [address], [id number], 03/23/2025 11:17:07 Patient TargetsNo targets recorded. Patient Instructions Encounter Date Encounter Id Patient Instructions Last Modified By Organization Details Last Modified Time 03/23/2025 [id number] Quitting Tobacco : Care Instructions Not available 03/23/2025 11:54:49 medical record request* [email or web address] Not available 03/31/2025 17:02:41 04/13/2025 [id number] A healthy lifestyle: care instructions Not available 04/14/2025 10:21:49 Quitting Tobacco : Care Instructions Not available 04/14/2025 10:21:49 06/11/2025 [id number] Quitting Tobacco : Care Instructions Not available 06/11/2025 15:01:50 Reason for Referral None Reported. Results Created Date Observation Date Name Description Value Unit Range Abnormal Flag Note LastModifiedBy Organization Detail LastModifiedTime 03/29/2003/30/2025 INTER PRETA TION: interpretati on: Commen t Not infec vasiliy with HCV unles s early or acute infec tion is suspe cted (whic h may be delay ed in an immun ocomp romis ed indiv idual ), or other evide nce exist s to indic ate HCV infec tion. Not Available [facility] ([facility]) [address] [place], [address], 04/03/2025 16:11:23 03/29/2003/30/2025 HCV ANTIB LEATHA RFX TO QUANT PCR HCV Ab NON REACTI VE nonrea ctive Not Available [facility] ([facility]) [address] [place], [address], 04/03/2025 16:11:24 03/29/2003/30/2025 QUANT IFERO N-TB GOLD PLUS quantiferon incubation INCUBA TION PERFOR MED. Not Available [facility] ([facility]) [address] [place], [address], 04/03/2025 16:11:25 03/29/20 25 03/30/2025 QUANT IFERO N-TB GOLD PLUS quantiferon criteria COMMEN T Quant iFERO N-TB Gold Plus is a quali tativ e indir ect test for M tuber culos is infec tion (incl uding disea se) and is inten ded for use in conju nctio n with risk asses sment , radio graph y, and other medic al and diagn ostic evalu ation s. The Quant iFERO N-TB Gold Plus resul t is deter mined by subtr actin g the Nil value from eithe r TB antig en (Ag) value . The Mitog en tube serve s as a contr ol for the test. Not Available [facility] ([facility]) [address] [facility], [place], [address], 04/03/2025 16:11:25 03/29/2003/31/2025 QUANT IFERO N-TB GOLD PLUS quantiferon- TB gold plus NEGATI VE negati ve No respo nse to M tuber culos is antig ens detec vasiliy. Infec tion with M tuber culos is is unlik radha, but high risk indiv idual s shoul d be consi dered for addit ional testi ng (ATS/ IDSA/ CDC Clini eve Pract ice Guide lines , 2017) . The refer ence range is an Antig en minus Nil resul t of <0.35 IU/mL . Chemi lumin escen ce immun oassa y metho dolog y Not Available [facility] ([facility]) [address] [facility], [place], [address], 04/03/2025 16:11:25 03/29/2003/31/2025 QUANT IFERO N-TB GOLD PLUS quantiferon TB1 Ag value 0.26 IU/mL Not Available [facility] ([facility]) [address] [place], [address], 04/03/2025 16:11:25 03/29/2003/31/2025 QUANT IFERO N-TB GOLD PLUS quantiferon TB2 Ag value 0.24 IU/mL Not Available [facility] ([facility]) [address] [place], [address], 04/03/2025 16:11:25 03/29/20 25 03/31/2025 QUANT IFERO N-TB GOLD PLUS quantiferon nil value 0.23 IU/mL Not Available [facility] ([facility]) [address] [place], [address], 04/03/2025 16:11:25 03/29/20 25 03/31/2025 QUANT IFERO N-TB GOLD PLUS quantiferon mitogen value >10.00 IU/mL Not Available [facility] ([facility]) [address] [place], [address], 04/03/2025 16:11:25 03/29/20 25 03/31/2025 CT, NG, TRICH VAG BY TIMOTHY chlamydia by TIMOTHY NEGATI VE negati ve Not Available [facility] ([facility]) [address] [place], [address], 04/03/2025 16:11:25 03/29/20 25 03/31/2025 CT, NG, TRICH VAG BY TIMOTHY gonococcus by TIMOTHY NEGATI VE negati ve Not Available [facility] ([facility]) [address] [place], [address], 04/03/2025 16:11:25 03/29/20 25 03/31/2025 CT, NG, TRICH VAG BY TIMOTHY trich vag by TIMOTHY NEGATI VE negati ve Not Available [facility] ([facility]) [address] [place], [address], 04/03/2025 16:11:25 03/29/20 25 03/30/2025 LIPID PANEL WITH LDL/H DL RATIO cholesterol, total 186 mg/dL 100-19 9 Not Available [facility] ([facility]) [address] [place], [address], 04/03/2025 16:11:26 03/29/20 25 03/30/2025 LIPID PANEL WITH LDL/H DL RATIO triglyceride s 92 mg/dL 0-149 Not Available [facility] ([facility]) [address] [place], [address], 04/03/2025 16:11:26 03/29/20 25 03/30/2025 LIPID PANEL WITH LDL/H DL RATIO HDL cholesterol 96 mg/dL >39 Not Available [facility] ([facility]) [address] [place], [address], 04/03/2025 16:11:26 03/29/20 25 03/30/2025 LIPID PANEL WITH LDL/H DL RATIO VLDL cholesterol eve 16 mg/dL 5-40 Not Available [facility] ([facility]) [address] [place], [address], 04/03/2025 16:11:26 03/29/20 25 03/30/2025 LIPID PANEL WITH LDL/H DL RATIO LDL chol calc ([facility]) 74 mg/dL 0-99 Not Available [facility] ([facility]) [address] [place], [address], 04/03/2025 16:11:26 03/29/20 25 03/30/2025 LIPID PANEL WITH LDL/H DL RATIO LDL/HDL ratio 0.8 ratio 0.0-3. 6 LDL/H DL Ratio Men Women 1/2 Avg.R isk 1.0 1.5 Avg.R isk 3.6 3.2 2X Avg.R isk 6.2 5.0 3X Avg.R isk 8.0 6.1 Not Available [facility] ([facility]) [address] [place], [address], 04/03/2025 16:11:26 03/29/20 25 03/30/2025 COMP. METAB OLIC PANEL (14) glucose 78 mg/dL 70-99 Not Available [facility] ([facility]) [address] [place], [address], 04/03/2025 16:11:27 08/11/20 25 03/30/2025 COMP. METAB OLIC PANEL (14) BUN 9 mg/dL 6-20 Not Available [facility] ([facility]) [address] [facility] [place] [place], [address], 04/03/2025 16:11:27 03/29/20 25 03/30/2025 COMP. METAB OLIC PANEL (14) creatinine 0.91 mg/dL 0.76-1 .27 Not Available [facility] ([facility]) [address] [facility], [place], [address], 04/03/2025 16:11:27 03/29/20 25 03/30/2025 COMP. METAB OLIC PANEL (14) eGFR 110 mL/mi n/1.7 3 >59 Not Available [facility] ([facility]) [address] [facility], [place], [address], 04/03/2025 16:11:27 03/29/20 25 03/30/2025 COMP. METAB OLIC PANEL (14) BUN/creatini ne ratio 10 9-20 Not Available [facility] ([facility]) [address] [facility], [place], [address], 04/03/2025 16:11:27 03/29/20 25 03/30/2025 COMP. METAB OLIC PANEL (14) sodium 142 mmol/ L 134-14 4 Not Available [facility] ([facility]) [address] [place], [address], 04/03/2025 16:11:27 03/29/20 25 03/30/2025 COMP. METAB OLIC PANEL (14) potassium 4.3 mmol/ L 3.5-5. 2 Not Available [facility] ([facility]) [address] [place], [address], 04/03/2025 16:11:27 03/29/20 25 03/30/2025 COMP. METAB OLIC PANEL (14) chloride 102 mmol/ L 96-106 Not Available [facility] ([facility]) [address] [place], [address], 04/03/2025 16:11:27 03/29/20 25 03/30/2025 COMP. METAB OLIC PANEL (14) carbon dioxide, total 22 mmol/ L 20-29 Not Available [facility] ([facility]) [address] [place], [address], 04/03/2025 16:11:27 03/29/20 25 03/30/2025 COMP. METAB OLIC PANEL (14) calcium 9.2 mg/dL 8.7-10 .2 Not Available [facility] ([facility]) [address] [place], [address], 04/03/2025 16:11:27 03/29/20 25 03/30/2025 COMP. METAB OLIC PANEL (14) protein, total 7.6 g/dL 6.0-8. 5 Not Available [facility] ([facility]) [address] [place], [address], 04/03/2025 16:11:27 03/29/20 25 03/30/2025 COMP. METAB OLIC PANEL (14) albumin 4.3 g/dL 4.1-5. 1 Not Available [facility] ([facility]) [address] [place], [address], 04/03/2025 16:11:27 03/29/20 25 03/30/2025 COMP. METAB OLIC PANEL (14) globulin, total 3.3 g/dL 1.5-4. 5 Not Available [facility] ([facility]) [address] [place], [address], 04/03/2025 16:11:27 03/29/20 25 03/30/2025 COMP. METAB OLIC PANEL (14) bilirubin, total 0.7 mg/dL 0.0-1. 2 Not Available [facility] ([facility]) [address] [facility], [place], [address], 04/03/2025 16:11:27 03/29/20 25 03/30/2025 COMP. METAB OLIC PANEL (14) alkaline phosphatase 106 IU/L 44-121 Not Available [facility] ([facility]) [address] [facility], [place], [address], 04/03/2025 16:11:27 03/29/20 25 03/30/2025 COMP. METAB OLIC PANEL (14) AST (SGOT) 183 IU/L 0-40 above high normal Not Available [facility] ([facility]) [address] [facility], [place], [address], 04/03/2025 16:11:27 03/29/20 25 03/30/2025 COMP. METAB OLIC PANEL (14) ALT (SGPT) 78 IU/L 0-44 above high normal Not Available [facility] ([facility]) [address] [facility], [place], [address], 04/03/2025 16:11:27 03/29/20 25 03/30/2025 MICRO SCOPI C EXAMI NATIO N WBC None seen /hpf 0-5 Not Available [facility] ([facility]) [address] [facility], [place], [address], 04/03/2025 16:11:28 03/29/20 25 03/30/2025 MICRO SCOPI C EXAMI NATIO N RBC 0-2 /hpf 0-2 Not Available [facility] ([facility]) [address] [facility], [place], [address], 04/03/2025 16:11:28 03/29/20 25 03/30/2025 MICRO SCOPI C EXAMI NATIO N epithelial cells (non renal) 0-10 /hpf 0-10 Not Available [facility] ([facility]) [address] [place], [address], 04/03/2025 16:11:28 03/29/20 25 03/30/2025 MICRO SCOPI C EXAMI NATIO N casts None seen /lpf nonese en Not Available [facility] ([facility]) [address] [facility], [place], [address], 04/03/2025 16:11:28 03/29/20 25 03/30/2025 MICRO SCOPI C EXAMI NATIO N bacteria None seen nonese en/few Not Available [facility] ([facility]) [address] [facility], [place], [address], 04/03/2025 16:11:28 03/29/20 25 03/30/2025 HELPE R T-LYM PH-CD 4 absolute cd 4 helper 795 /uL 359-15 19 Not Available [facility] ([facility]) [address] [facility], [place], [address], 04/03/2025 16:11:28 03/29/20 25 03/30/2025 HELPE R T-LYM PH-CD 4 % cd 4 pos. lymph. 49.7 % 30.8-5 8.5 Not Available [facility] ([facility]) [address] [facility], [place], [address], 04/03/2025 16:11:28 03/29/20 25 03/30/2025 HELPE R T-LYM PH-CD 4 WBC 3.6 x10e3 /uL 3.4-10 .8 Not Available [facility] ([facility]) [address] [facility], [place], [address], 04/03/2025 16:11:28 03/29/20 25 03/30/2025 HELPE R T-LYM PH-CD 4 RBC 3.70 x10e6 /uL 4.14-5 .80 below low normal Not Available [facility] ([facility]) [address] [facility], [place], [address], 04/03/2025 16:11:28 08/11/20 25 03/30/2025 HELPE R T-LYM PH-CD 4 hemoglobin 14.4 g/dL 13.0-1 7.7 Not Available [facility] ([facility]) [address] [facility], [place], [address], 04/03/2025 16:11:28 03/29/20 25 03/30/2025 HELPE R T-LYM PH-CD 4 hematocrit 41.4 % 37.5-5 1.0 Not Available [facility] ([facility]) [address] [facility] [place] [place], [address], 04/03/2025 16:11:28 03/29/20 25 03/30/2025 HELPE R T-LYM PH-CD 4 MCV 112 fL 79-97 above high normal Not Available [facility] ([facility]) [address] [facility] [place] [place], [address], 04/03/2025 16:11:28 03/29/20 25 03/30/2025 HELPE R T-LYM PH-CD 4 MCH 38.9 pg 26.6-3 3.0 above high normal Not Available [facility] ([facility]) [address] [facility] [place], [address], 04/03/2025 16:11:28 03/29/20 25 03/30/2025 HELPE R T-LYM PH-CD 4 MCHC 34.8 g/dL 31.5-3 5.7 Not Available [facility] ([facility]) [address] [facility] [place] [place], [address], 04/03/2025 16:11:28 03/29/20 25 03/30/2025 HELPE R T-LYM PH-CD 4 RDW 12.7 % 11.6-1 5.4 Not Available [facility] ([facility]) [address] [facility], [place], [address], 04/03/2025 16:11:28 03/29/20 25 03/30/2025 HELPE R T-LYM PH-CD 4 platelets 140 x10e3 /uL 150-45 0 below low normal Not Available [facility] ([facility]) [address] [facility], [place], [address], 04/03/2025 16:11:28 03/29/20 25 03/30/2025 HELPE R T-LYM PH-CD 4 neutrophils 37 % notest ab. Not Available [facility] ([facility]) [address] [facility], [place], [address], 04/03/2025 16:11:28 03/29/20 25 03/30/2025 HELPE R T-LYM PH-CD 4 lymphs 45 % notest ab. Not Available [facility] ([facility]) [address] [facility], [place], [address], 04/03/2025 16:11:28 03/29/20 25 03/30/2025 HELPE R T-LYM PH-CD 4 monocytes 14 % notest ab. Not Available [facility] ([facility]) [address] [facility], [place], [address], 04/03/2025 16:11:28 03/29/20 25 03/30/2025 HELPE R T-LYM PH-CD 4 eos 3 % notest ab. Not Available [facility] ([facility]) [address] [facility], [place], [address], 04/03/2025 16:11:28 03/29/20 25 03/30/2025 HELPE R T-LYM PH-CD 4 basos 1 % notest ab. Not Available [facility] ([facility]) [address] [facility], [place], [address], 04/03/2025 16:11:28 03/29/20 25 03/30/2025 HELPE R T-LYM PH-CD 4 neutrophils (absolute) 1.3 x10e3 /uL 1.4-7. 0 below low normal Not Available [facility] ([facility]) [address] [facility], [place], [address], 04/03/2025 16:11:28 03/29/20 25 03/30/2025 HELPE R T-LYM PH-CD 4 lymphs (absolute) 1.6 x10e3 /uL 0.7-3. 1 Not Available [facility] ([facility]) [address] [facility], [place], [address], 04/03/2025 16:11:28 03/29/20 25 03/30/2025 HELPE R T-LYM PH-CD 4 monocytes(ab solute) 0.5 x10e3 /uL 0.1-0. 9 Not Available [facility] ([facility]) [address] [facility], [place], [address], 04/03/2025 16:11:28 03/29/20 25 03/30/2025 HELPE R T-LYM PH-CD 4 eos (absolute) 0.1 x10e3 /uL 0.0-0. 4 Not Available [facility] ([facility]) [address] [facility], [place], [address], 04/03/2025 16:11:28 03/29/20 25 03/30/2025 HELPE R T-LYM PH-CD 4 baso (absolute) 0.0 x10e3 /uL 0.0-0. 2 Not Available [facility] ([facility]) [address] [facility], [place], [address], 04/03/2025 16:11:28 03/29/20 25 03/30/2025 HELPE R T-LYM PH-CD 4 immature granulocytes 0 % notest ab. Not Available [facility] ([facility]) [address] [facility], [place], [address], 04/03/2025 16:11:28 03/29/20 25 03/30/2025 HELPE R T-LYM PH-CD 4 immature grans (abs) 0.0 x10e3 /uL 0.0-0. 1 Not Available [facility] ([facility]) [address] [facility], [place], [address], 04/03/2025 16:11:28 03/29/20 25 03/31/2025 RNA, REAL TIME PCR (NON- GRAPH ) HIV-1 RNA by PCR <20 copie s/mL HIV-1 RNA not detec vasiliy The repor table range for this assay is 20 to 10,00 0,000 copie s HIV-1 RNA/m L. Not Available [facility] ([facility]) [address] [facility], [place], [address], 04/03/2025 16:11:29 03/29/2003/31/2025 RNA, REAL TIME PCR (NON- GRAPH ) log10 HIV-1 RNA TNP log10 copy/ mL Unabl e to calcu late resul t since non-n umeri c resul t obtai arnaud for compo nent test. Not Available [facility] ([facility]) [address] [facility], [place], [address], 04/03/2025 16:11:29 03/29/2004/03/2025 GENOS URE PRIME (R) pdf NOT APPLIC ABLE Not Available [facility] ([facility]) [address] [facility], [place], [address], 04/03/2025 16:11:30 03/29/2004/03/2025 GENOS URE PRIME (R) HIV genosure prime(R) TNP Test not perfo rmed. We are unabl e to deter mine the genot ype and/o r pheno type of this sampl e due to insuf ficie nt viral copy numbe r. Sampl es with low viral loads will often fail PCR ampli ficat ion. Not Available [facility] ([facility]) [address] [facility], [place], [address], 04/03/2025 16:11:30 03/29/2004/03/2025 GENOS URE PRIME (R) HIV genosure prime(R) COMMEN T Seque ncing not perfo rmed due to low viral load Not Available [facility] ([facility]) [address] [facility], [place], [address], 04/03/2025 16:11:30 03/29/20 25 04/02/2025 TOXAS SURE SELEC T 13 (MW) summary report (summary) FINAL ===== ===== ===== ===== ===== ===== ===== ===== ===== ===== ===== ===== ===== === TOXAS SURE SELEC T 13 (MW) ===== ===== ===== ===== ===== ===== ===== ===== ===== ===== ===== ===== ===== === Test Resul t Flag Units Drug Prese nt Alcoh ol, Ethyl 0.084 g/dL Sourc es of ethyl alcoh ol inclu de alcoh olic bever ages or as a ferme ntati on produ ct of gluco se; gluco se was not detec vasiliy in this speci men. Ethyl alcoh ol resul t shoul d be inter prete d in the naila xt of all avail able clini eve and behav ioral infor matio n. ===== ===== ===== ===== ===== ===== ===== ===== ===== ===== ===== ===== ===== === Test Resul t Flag Units Ref Range Creat inine 254 mg/dL >= 20 ===== ===== ===== ===== ===== ===== ===== ===== ===== ===== ===== ===== ===== === Decla red Medic ation s: Medic ation list was not provi ded. ===== ===== ===== ===== ===== ===== ===== ===== ===== ===== ===== ===== ===== === For clini eve consu ltati on, pleas e call . ===== ===== ===== ===== ===== ===== ===== ===== ===== ===== ===== ===== ===== === Not Available [facility] ([facility]) [address] [place], [address], 04/03/2025 16:11:30 03/29/2004/02/2025 TOXAS SURE SELEC T 13 () pdf . Not Available [facility] ([facility]) [address] [place], [address], 04/03/2025 16:11:30 03/29/20 25 03/30/2025 URINA LYSIS , COMPL ETE specific gravity 1.025 1.005- 1.030 Not Available [facility] ([facility]) [address] [place], [address], 04/03/2025 16:11:31 03/29/2003/30/2025 URINA LYSIS , COMPL ETE pH 8.0 5.0-7. 5 above high normal Not Available [facility] ([facility]) [address] [place], [address], 04/03/2025 16:11:31 03/29/20 25 03/30/2025 URINA LYSIS , COMPL ETE urine-color YELLOW yellow Not Available [facility] ([facility]) [address] [place], [address], 04/03/2025 16:11:31 03/29/20 25 03/30/2025 URINA LYSIS , COMPL ETE appearance CLEAR clear Not Available [facility] [facility]) [address] [facility], [place], [address], 04/03/2025 16:11:31 03/29/20 25 03/30/2025 URINA LYSIS , COMPL ETE WBC esterase TRACE negati ve abnormal Not Available [facility] ([facility]) [address] [facility], [place], [address], 04/03/2025 16:11:31 03/29/20 25 03/30/2025 URINA LYSIS , COMPL ETE protein 1+ negati ve/tra ce abnormal Not Available [facility] ([facility]) [address] [place], [address], 04/03/2025 16:11:31 03/29/20 25 03/30/2025 URINA LYSIS , COMPL ETE glucose NEGATI VE negati ve Not Available [facility] ([facility]) [address] [place], [address], 04/03/2025 16:11:31 03/29/20 25 03/30/2025 URINA LYSIS , COMPL ETE ketones TRACE negati ve abnormal Not Available [facility] ([facility]) [address] [place], [address], 04/03/2025 16:11:31 03/29/20 25 03/30/2025 URINA LYSIS , COMPL ETE occult blood NEGATI VE negati ve Not Available [facility] ([facility]) [address] [place], [address], 04/03/2025 16:11:31 03/29/20 25 03/30/2025 URINA LYSIS , COMPL ETE bilirubin NEGATI VE negati ve Not Available [facility] ([facility]) [address] [place], [address], 04/03/2025 16:11:31 03/29/2003/30/2025 URINA LYSIS , COMPL ETE urobilinogen ,semi-qn 1.0 mg/dL 0.2-1. 0 Not Available [facility] ([facility]) [address] [facility], [place], [address], 04/03/2025 16:11:31 03/29/2003/30/2025 URINA LYSIS , COMPL ETE nitrite, urine NEGATI VE negati ve Not Available [facility] ([facility]) [address] [facility], [place], [address], 04/03/2025 16:11:31 03/29/2003/30/2025 URINA LYSIS , COMPL ETE microscopic examination SEE BELOW: Micro scopi c was indic ated and was perfo rmed. Not Available [facility] ([facility]) [address] [facility], [place], [address], 04/03/2025 16:11:31 03/29/2003/30/2025 HEP B SURFA CE AB, QUAL hep B surface Ab, qual REACTI VE Non React stacie: Not immun e to HBV infec tion. Equiv ocal: Unabl e to deter mine if anti- HBs is prese nt at level s consi stent with immun ity. React stacie: Anti- HBs susanna ntrat ion detec vasiliy at great er than 10 mIU/m L. Indiv idual is consi dered to be immun e to infec tion with HBV. Not Available [facility] ([facility]) [address] [facility], [place], [address], 04/03/2025 16:11:32 03/29/2003/30/2025 HBSAG SCREE N HBsAg screen NEGATI VE negati ve Not Available [facility] ([facility]) [address] [facility], [place], [address], 04/03/2025 16:11:33 03/29/20 25 03/30/2025 RPR, RFX QN RPR/C ONFIR M TP RPR REACTI VE nonrea ctive abnormal Not Available [facility] ([facility]) [address] [facility], [place], [address], 04/03/2025 16:11:33 03/29/20 25 03/30/2025 RPR QN+TP ABS RPR, quant. 1:2 titer nonrea <1:1 above high normal Not Available [facility] ([facility]) [address] [place], [address], 04/03/2025 16:11:34 03/29/20 25 03/30/2025 RPR QN+TP ABS treponema pallidum antibodies Reacti ve nonrea ctive abnormal Not Available [facility] ([facility]) [address] [facility], [place], [address], 04/03/2025 16:11:34 03/29/20 25 03/30/2025 RPR QN+TP ABS interpretati on: Commen t [...] early ) syphi lis. Not Available [facility] ([facility]) [address] [facility], [place], [address], 04/03/2025 16:11:34 03/29/20 25 03/30/2025 HIV AB/P2 4 AG WITH REFLE X HIV Ab/P24 Ag screen PRELIM INARY REACTI VE Pleas e refer to the Final Inter preta tion. Resul ts react stacie by HIV Antig en/An tibod y EIA must be confi rmed by the HIV testi ng algor [facility] to be consi dered indic ative of a true HIV infec tion. Not Available [facility] ([facility]) [address] [facility], [place], [address], 04/03/2025 16:11:35 03/29/20 25 03/30/2025 HIV 1/2 AB DIFFE RENTI ATION HIV 1 Ab Reacti ve nonrea ctive Not Available [facility] ([facility]) [address] [facility], [place], [address], 04/03/2025 16:11:35 03/29/20 25 03/30/2025 HIV 1/2 AB DIFFE RENTI ATION HIV 2 Ab Non Reacti ve nonrea ctive Not Available [facility] ([facility]) [address] [facility], [place], [address], 04/03/2025 16:11:35 03/29/20 25 03/30/2025 HIV 1/2 AB DIFFE RENTI ATION interpretati on: HIV-1 Positi ve abnormal Labor atory evide nce consi stent with HIV-1 infec tion. Not Available [facility] ([facility]) [address] [facility], [place], [address], 04/03/2025 16:11:35 04/13/20 25 04/13/2025 COMP. METAB OLIC PANEL (14) interpretati on: Commen t GFR estim ate at the follo wing level for >or=3 month s is class ified as follo ws: GFR WITH KIDNE Y DAMAG E WITHO UT KIDNE Y DAMAG E >or=9 0 Stage 1 Jennifer l 60-89 Stage 2 Decr eased GFR 30-59 Stage 3 Stage 3 15-29 Stage 4 Stage 4 <15 (or dialy sis) Stage 5 Stage 5 Estim ated GFR will over estim ate true GFR if serum creat inine is risin g as in acute renal failu re and will under estim ate true GFR if serum creat inine is decli eduard as in resol ving acute renal failu re. Addit ional infor mitali de león may be found at www.k doqi. org. Not Available [facility] ([facility]) [address] [facility], [place], [address], 04/15/2025 17:10:45 04/13/20 25 04/14/2025 COMP. METAB OLIC PANEL (14) sodium 141 mmol/ L 134-14 4 Not Available [facility] ([facility]) [address] [facility], [place], [address], 04/15/2025 17:10:45 04/13/20 25 04/14/2025 COMP. METAB OLIC PANEL (14) potassium 4.6 mmol/ L 3.5-5. 2 Not Available [facility] ([facility]) [address] [facility] [place] [place], [address], 04/15/2025 17:10:45 04/13/20 25 04/14/2025 COMP. METAB OLIC PANEL (14) chloride 102 mmol/ L 96-106 Not Available [facility] ([facility]) [address] [facility] [place] [place], [address], 04/15/2025 17:10:45 04/13/20 25 04/14/2025 COMP. METAB OLIC PANEL (14) carbon dioxide, total 25 mmol/ L 20-29 Not Available [facility] ([facility]) [address] [facility] [place], [address], 04/15/2025 17:10:45 04/13/20 25 04/15/2025 COMP. METAB OLIC PANEL (14) glucose 80 mg/dL 70-99 Not Available [facility] ([facility]) [address] [facility] [place], [address], 04/15/2025 17:10:45 04/13/20 25 04/15/2025 COMP. METAB OLIC PANEL (14) BUN 9 mg/dL 6-20 Not Available [facility] ([facility]) [address] [facility] [place], [address], 04/15/2025 17:10:45 04/13/20 25 04/15/2025 COMP. METAB OLIC PANEL (14) creatinine 0.98 mg/dL 0.76-1 .27 Not Available [facility] ([facility]) [address] [facility] [place] [place], [address], 04/15/2025 17:10:45 04/13/20 25 04/15/2025 COMP. METAB OLIC PANEL (14) eGFR 101 mL/mi n/1.7 3 >59 Not Available [facility] ([facility]) [address] [facility] [place] [place], [address], 04/15/2025 17:10:45 04/13/20 25 04/15/2025 COMP. METAB OLIC PANEL (14) BUN/creatini ne ratio 9 9-20 Not Available [facility] ([facility]) [address] [facility] [place] [place], [address], 04/15/2025 17:10:45 04/13/20 25 04/15/2025 COMP. METAB OLIC PANEL (14) calcium 8.8 mg/dL 8.7-10 .2 Not Available [facility] ([facility]) [address] [facility], [place], [address], 04/15/2025 17:10:45 04/13/20 25 04/15/2025 COMP. METAB OLIC PANEL (14) protein, total 7.3 g/dL 6.0-8. 5 Not Available [facility] ([facility]) [address] [facility], [place], [address], 04/15/2025 17:10:45 04/13/20 25 04/15/2025 COMP. METAB OLIC PANEL (14) albumin 4.1 g/dL 4.1-5. 1 Not Available [facility] ([facility]) [address] [facility] [place], [address], 04/15/2025 17:10:45 04/13/20 25 04/15/2025 COMP. METAB OLIC PANEL (14) globulin, total 3.2 g/dL 1.5-4. 5 Not Available [facility] ([facility]) [address] [facility] [place] [place], [address], 04/15/2025 17:10:45 04/13/20 25 04/15/2025 COMP. METAB OLIC PANEL (14) bilirubin, total 0.5 mg/dL 0.0-1. 2 Not Available [facility] ([facility]) [address] [facility] [place] [place], [address], 04/15/2025 17:10:45 04/13/20 25 04/15/2025 COMP. METAB OLIC PANEL (14) alkaline phosphatase 90 IU/L 44-121 Not Available [facility] ([facility]) [address] [facility] [place] [place], [address], 04/15/2025 17:10:45 04/13/20 25 04/15/2025 COMP. METAB OLIC PANEL (14) AST (SGOT) 145 IU/L 0-40 above high normal Not Available [facility] ([facility]) [address] [facility], [place], [address], 04/15/2025 17:10:45 04/13/20 25 04/15/2025 COMP. METAB OLIC PANEL (14) ALT (SGPT) 65 IU/L 0-44 above high normal Not Available [facility] ([facility]) [address] [facility], [place], [address], 04/15/2025 17:10:45 04/13/20 25 04/14/2025 HELPE R T-LYM PH-CD 4 absolute cd 4 helper 633 /uL 359-15 19 Not Available [facility] ([facility]) [address] [facility], [place], [address], 04/15/2025 17:10:46 04/13/20 25 04/14/2025 HELPE R T-LYM PH-CD 4 % cd 4 pos. lymph. 57.5 % 30.8-5 8.5 Not Available [facility] ([facility]) [address] [facility], [place], [address], 04/15/2025 17:10:46 04/13/20 25 04/14/2025 HELPE R T-LYM PH-CD 4 WBC 3.6 x10e3 /uL 3.4-10 .8 Not Available [facility] ([facility]) [address] [facility], [place], [address], 04/15/2025 17:10:46 0804/14/2025 HELPE R T-LYM PH-CD 4 RBC 3.65 x10e6 /uL 4.14-5 .80 below low normal Not Available [facility] ([facility]) [address] [place], [address], 04/15/2025 17:10:46 04/13/20 25 04/14/2025 HELPE R T-LYM PH-CD 4 hemoglobin 14.5 g/dL 13.0-1 7.7 Not Available [facility] ([facility]) [address] [place], [address], 04/15/2025 17:10:46 04/13/2004/14/2025 HELPE R T-LYM PH-CD 4 hematocrit 41.3 % 37.5-5 1.0 Not Available [facility] ([facility]) [address] [place], [address], 04/15/2025 17:10:46 04/13/2004/14/2025 HELPE R T-LYM PH-CD 4 MCV 113 fL 79-97 above high normal Not Available [facility] ([facility]) [address] [place], [address], 04/15/2025 17:10:46 04/13/2004/14/2025 HELPE R T-LYM PH-CD 4 MCH 39.7 pg 26.6-3 3.0 above high normal Not Available [facility] ([facility]) [address] [place], [address], 04/15/2025 17:10:46 04/13/2004/14/2025 HELPE R T-LYM PH-CD 4 MCHC 35.1 g/dL 31.5-3 5.7 Not Available [facility] ([facility]) [address] [place], [address], 04/15/2025 17:10:46 08/26/04/14/2025 HELPE R T-LYM PH-CD 4 RDW 12.7 % 11.6-1 5.4 Not Available [facility] ([facility]) [address] [facility], [place], [address], 04/15/2025 17:10:46 04/13/20 25 04/14/2025 HELPE R T-LYM PH-CD 4 platelets 117 x10e3 /uL 150-45 0 below low normal Large plate lets were obser kev. Not Available [facility] ([facility]) [address] [facility], [place], [address], 04/15/2025 17:10:46 04/13/2004/14/2025 HELPE R T-LYM PH-CD 4 neutrophils 59 % notest ab. Not Available [facility] ([facility]) [address] [facility], [place], [address], 04/15/2025 17:10:46 04/13/20 25 04/14/2025 HELPE R T-LYM PH-CD 4 lymphs 30 % notest ab. Not Available [facility] ([facility]) [address] [facility], [place], [address], 04/15/2025 17:10:46 04/13/20 25 04/14/2025 HELPE R T-LYM PH-CD 4 monocytes 9 % notest ab. Not Available [facility] ([facility]) [address] [facility], [place], [address], 04/15/2025 17:10:46 04/13/20 25 04/14/2025 HELPE R T-LYM PH-CD 4 eos 1 % notest ab. Not Available [facility] ([facility]) [address] [facility], [place], [address], 04/15/2025 17:10:46 04/13/20 25 04/14/2025 HELPE R T-LYM PH-CD 4 basos 1 % notest ab. Not Available [facility] ([facility]) [address] [facility], [place], [address], 04/15/2025 17:10:46 04/13/20 25 04/14/2025 HELPE R T-LYM PH-CD 4 neutrophils (absolute) 2.1 x10e3 /uL 1.4-7. 0 Not Available [facility] ([facility]) [address] [place], [address], 04/15/2025 17:10:46 04/13/20 25 04/14/2025 HELPE R T-LYM PH-CD 4 lymphs (absolute) 1.1 x10e3 /uL 0.7-3. 1 Not Available [facility] ([facility]) [address] [facility], [place], [address], 04/15/2025 17:10:46 04/13/20 25 04/14/2025 HELPE R T-LYM PH-CD 4 monocytes(ab solute) 0.3 x10e3 /uL 0.1-0. 9 Not Available [facility] ([facility]) [address] [place], [address], 04/15/2025 17:10:46 04/13/20 25 04/14/2025 HELPE R T-LYM PH-CD 4 eos (absolute) 0.0 x10e3 /uL 0.0-0. 4 Not Available [facility] ([facility]) [address] [place], [address], 04/15/2025 17:10:46 04/13/20 25 04/14/2025 HELPE R T-LYM PH-CD 4 baso (absolute) 0.0 x10e3 /uL 0.0-0. 2 Not Available [facility] ([facility]) [address] [place], [address], 04/15/2025 17:10:46 04/13/20 25 04/14/2025 HELPE R T-LYM PH-CD 4 immature granulocytes 0 % notest ab. Not Available [facility] ([facility]) [address] [facility], [place], [address], 04/15/2025 17:10:46 04/13/20 25 04/14/2025 HELPE R T-LYM PH-CD 4 immature grans (abs) 0.0 x10e3 /uL 0.0-0. 1 Not Available [facility] ([facility]) [address] [facility], [place], [address], 04/15/2025 17:10:46 04/13/20 25 04/14/2025 HELPE R T-LYM PH-CD 4 hematology comments: NOTE: Jeff chu al was perfo rmed. Not Available [facility] ([facility]) [address] [facility], [place], [address], 04/15/2025 17:10:46 04/13/20 25 04/14/2025 RNA, REAL TIME PCR (NON- GRAPH ) HIV-1 RNA by PCR <20 copie s/mL HIV-1 RNA not detec vasiliy The repor table range for this assay is 20 to 10,00 0,000 copie s HIV-1 RNA/m L. Not Available [facility] ([facility]) [address] [facility], [place], [address], 04/15/2025 17:10:47 04/13/2004/14/2025 RNA, REAL TIME PCR (NON- GRAPH ) log10 HIV-1 RNA TNP log10 copy/ mL Unabl e to calcu late resul t since non-n umeri c resul t obtai arnaud for compo nent test. Not Available [facility] ([facility]) [address] [facility], [place], [address], 04/15/2025 17:10:47 04/13/20 25 04/15/2025 RPR, RFX QN RPR/C ONFIR M TP RPR REACTI VE nonrea ctive abnormal Not Available [facility] ([facility]) [address] [facility], [place], [address], 04/15/2025 17:10:49 04/13/2004/15/2025 RPR QN+TP ABS RPR, quant. 1:2 titer nonrea <1:1 above high normal Not Available [facility] ([facility]) [address] [facility], [place], [address], 04/15/2025 17:10:50 04/13/20 25 04/15/2025 RPR QN+TP ABS treponema pallidum antibodies Reacti ve nonrea ctive abnormal Not Available [facility] ([facility]) [address] [facility], [place], [address], 04/15/2025 17:10:50 04/13/20 25 04/15/2025 RPR QN+TP ABS interpretati on: Commen t [...] early ) syphi lis. Not Available [facility] ([facility]) [address] [place], [address], 04/15/2025 17:10:50 06/11/2006/14/2025 CT, NG, TRICH VAG BY TIMOTHY chlamydia by TIMOTHY NEGATI VE negati ve Not Available [facility] ([facility]) [address] [place], [address], 06/14/2025 15:11:50 06/11/2006/14/2025 CT, NG, TRICH VAG BY TIMOTHY gonococcus by TIMOTHY NEGATI VE negati ve Not Available [facility] ([facility]) [address] [place], [address], 06/14/2025 15:11:50 06/11/2006/14/2025 CT, NG, TRICH VAG BY TIMOTHY trich vag by TIMOTHY NEGATI VE negati ve Not Available [facility] ([facility]) [address] [place], [address], 06/14/2025 15:11:50 06/11/2006/12/2025 HELPE R T-LYM PH-CD 4 WBC 5.7 x10e3 /uL 3.4-10 .8 Not Available [facility] ([facility]) [address] [place], [address], 06/14/2025 15:11:51 06/11/2006/12/2025 HELPE R T-LYM PH-CD 4 RBC 4.35 x10e6 /uL 4.14-5 .80 Not Available [facility] ([facility]) [address] [facility], [place], [address], 06/14/2025 15:11:51 06/11/2006/12/2025 HELPE R T-LYM PH-CD 4 hemoglobin 16.5 g/dL 13.0-1 7.7 Not Available [facility] ([facility]) [address] [place], [address], 06/14/2025 15:11:51 06/11/2006/12/2025 HELPE R T-LYM PH-CD 4 hematocrit 47.3 % 37.5-5 1.0 Not Available [facility] ([facility]) [address] [facility], [place], [address], 06/14/2025 15:11:51 06/11/2006/12/2025 HELPE R T-LYM PH-CD 4 MCV 109 fL 79-97 above high normal Not Available [facility] ([facility]) [address] [place], [address], 06/14/2025 15:11:51 06/11/2006/12/2025 HELPE R T-LYM PH-CD 4 MCH 37.9 pg 26.6-3 3.0 above high normal Not Available [facility] ([facility]) [address] [place], [address], 06/14/2025 15:11:51 06/11/2006/12/2025 HELPE R T-LYM PH-CD 4 MCHC 34.9 g/dL 31.5-3 5.7 Not Available [facility] ([facility]) [address] [place], [address], 06/14/2025 15:11:51 06/11/2006/12/2025 HELPE R T-LYM PH-CD 4 RDW 11.7 % 11.6-1 5.4 Not Available [facility] ([facility]) [address] [facility], [place], [address], 06/14/2025 15:11:51 06/11/2006/12/2025 HELPE R T-LYM PH-CD 4 platelets 131 x10e3 /uL 150-45 0 below low normal Not Available [facility] ([facility]) [address] [facility], [place], [address], 06/14/2025 15:11:51 06/11/2006/12/2025 HELPE R T-LYM PH-CD 4 neutrophils 32 % notest ab. Not Available [facility] ([facility]) [address] [facility], [place], [address], 06/14/2025 15:11:51 06/11/2006/12/2025 HELPE R T-LYM PH-CD 4 lymphs 52 % notest ab. Not Available [facility] ([facility]) [address] [facility], [place], [address], 06/14/2025 15:11:51 06/11/2006/12/2025 HELPE R T-LYM PH-CD 4 monocytes 10 % notest ab. Not Available [facility] ([facility]) [address] [facility], [place], [address], 06/14/2025 15:11:51 06/11/2006/12/2025 HELPE R T-LYM PH-CD 4 eos 5 % notest ab. Not Available [facility] ([facility]) [address] [facility], [place], [address], 06/14/2025 15:11:51 06/11/2006/12/2025 HELPE R T-LYM PH-CD 4 basos 1 % notest ab. Not Available [facility] ([facility]) [address] [facility], [place], [address], 06/14/2025 15:11:51 06/11/2006/12/2025 HELPE R T-LYM PH-CD 4 neutrophils (absolute) 1.8 x10e3 /uL 1.4-7. 0 Not Available [facility] ([facility]) [address] [facility], [place], [address], 06/14/2025 15:11:51 06/11/2006/12/2025 HELPE R T-LYM PH-CD 4 lymphs (absolute) 2.9 x10e3 /uL 0.7-3. 1 Not Available [facility] ([facility]) [address] [facility], [place], [address], 06/14/2025 15:11:51 06/11/2006/12/2025 HELPE R T-LYM PH-CD 4 monocytes(ab solute) 0.6 x10e3 /uL 0.1-0. 9 Not Available [facility] ([facility]) [address] [facility], [place], [address], 06/14/2025 15:11:51 06/11/2006/12/2025 HELPE R T-LYM PH-CD 4 eos (absolute) 0.3 x10e3 /uL 0.0-0. 4 Not Available [facility] ([facility]) [address] [place], [address], 06/14/2025 15:11:51 06/11/2006/12/2025 HELPE R T-LYM PH-CD 4 baso (absolute) 0.1 x10e3 /uL 0.0-0. 2 Not Available [facility] ([facility]) [address] [facility], [place], [address], 06/14/2025 15:11:51 06/11/2006/12/2025 HELPE R T-LYM PH-CD 4 immature granulocytes 0 % notest ab. Not Available [facility] ([facility]) [address] [facility], [place], [address], 06/14/2025 15:11:51 06/11/2006/12/2025 HELPE R T-LYM PH-CD 4 immature grans (abs) 0.0 x10e3 /uL 0.0-0. 1 Not Available [facility] ([facility]) [address] [facility], [place], [address], 06/14/2025 15:11:51 06/11/2006/14/2025 HELPE R T-LYM PH-CD 4 absolute cd 4 helper 1128 /uL 359-15 19 Not Available [facility] ([facility]) [address] [facility], [place], [address], 06/14/2025 15:11:51 06/11/2006/14/2025 HELPE R T-LYM PH-CD 4 % cd 4 pos. lymph. 38.9 % 30.8-5 8.5 Not Available [facility] ([facility]) [address] [facility], [place], [address], 06/14/2025 15:11:51 06/11/2006/14/2025 RNA, REAL TIME PCR (NON- GRAPH ) HIV-1 RNA by PCR 30 copie s/mL The repor table range for this assay is 20 to 10,00 0,000 copie s HIV-1 RNA/m L. Not Available [facility] ([facility]) [address] [place], [address], 06/14/2025 15:11:51 06/11/2006/14/2025 RNA, REAL TIME PCR (NON- GRAPH ) log10 HIV-1 RNA 1.477 log10 copy/ mL Not Available [facility] ([facility]) [address] [facility], [place], [address], 06/14/2025 15:11:51 06/11/2006/12/2025 RPR, RFX QN RPR/C ONFIR M TP RPR REACTI VE nonrea ctive abnormal Not Available [facility] ([facility]) [address] [facility], [place], [address], 06/14/2025 15:11:52 06/11/2006/12/2025 RPR QN+TP ABS RPR, quant. 1:2 titer nonrea <1:1 above high normal Not Available [facility] ([facility]) [address] [facility], [place], [address], 06/14/2025 15:11:52 06/11/2006/12/2025 RPR QN+TP ABS interpretati [...] early ) syphi lis. Not Available [facility] ([facility]) [address] [facility], [place], [address], 06/14/2025 15:11:52 06/11/2006/14/2025 RPR QN+TP ABS treponema pallidum antibodies Reacti ve nonrea ctive abnormal Not Available [facility] ([facility]) [address] [facility], [place], [address], 06/14/2025 15:11:52 Result Notes None recorded. Problems Name Problem SNOMED Code Status Onset Date Resolution Date Notes Provider Name and Address Organization Details Recorded Time Gonorrhe a 26285972 Completed 202003/23/2025 Removal Reason: treated ÁNGELA MEAD NP Attn: Saige moise,[address] [place], [address], [facility] 5 15:04:31 History of syphilis [id number] Active 2020 and 03/09 treated also ÁNGELA MEAD NP Attn: Saige moise,[address] [place], [address], [place] [facility] 5 15:06:41 Gonorrhe a of pharynx [id number] Completed 202203/23/2025 ÁNGELA MEAD NP Attn: Saige moise,[address] [place], [address], [facility] 5 15:05:49 Infectio n by Shigella [id number] Completed 202412/16/2024 ÁNGELA MEAD NP Attn: Saige moise,[address] , [place], [address], [facility] 00:12:02 Problem Notes None recorded. Procedures Surgical History Date Name Laterality Status Provider Name and Address Organization Details Recorded Time 11/06/19 laparoscopic sleeve gastrectomy completed ÁNGELA MEAD NP Attn: Jefry,[address] , [place], [address], [facility] 03/23/2025 11:14:18 Imaging Results None recorded. Procedure [...] No t Available Vitals Date Recorded Body weight Body mass index (BMI) Body height Body temperature Oxygen saturation Heart rate Respiratory rate Systolic And Diastolic Provider Name and Address Organization Details Last Updated DateTime 5 85832.8 1 g 27.7 kg/m2 172.72 cm 97.8 [degF] 98 % 80 /min 18 /min 120/80 mm[Hg] Lisa Arizmendi MA [facility] 10:40:40 Date Recorded Body height Body mass index (BMI) Body weight Oxygen saturation Heart rate Respiratory rate Body temperature Systolic And Diastolic Provider Name and Address Organization Details Last Updated DateTime 5 172.72 cm 26.9 kg/m2 78540.8 5 g 98 % 80 /min 18 /min 97.8 [degF] 110/72 mm[Hg] Maxxgissel Ranulfo, MA [facility] 17:00:09 Date Recorded Body height Body mass index (BMI) Body weight Oxygen saturation Heart rate Respiratory rate Body temperature Systolic And Diastolic Provider Name and Address Organization Details Last Updated DateTime 172.72 cm 27.6 kg/m2 20929.6 2 g 97 % 108 /min 18 /min 98.4 [degF] 117/79 mm[Hg] Lisa Arizmendi MA [facility] 11:52:27 Social History Question Answer Notes LastModified by Organizat ion Details LastModified Time Tobacco Smoking Status Current Every Day Smoker DAVID Lopez, [facility] 03/23/2025 10:41:05 Do You Have An Advance [...] Your Home? No Information not available 03/23/2025 RW Slide Cap On Charges 7384.32 [email or web address] Information not available 04/20/2025 HIV Dx By [facility] No Informatio n not available 03/18/2025 HIV QI Project No Informa tion not available 03/18/2025 New Patient Type At Intake Relocating/t ransfering Care Information not available 03/18/2025 URN [id number] Information no t available 03/18/2025 Journalism Intern / Phone # Edwina Ceballos ([phone]) Information not available 03/18/2025 Journalism InternCordwood Cutter Helper [facility] Information not available 03/18/2025 Risk Factor [...] anxious, or unable to sleep at night)? FK3318-2 Information not available 03/23/2025 Family History Relationship Description Onset Age of this Age Resolved Age Notes LastModified by Organization Details LastModified Time Father No current problems or disability Not available 12/2024 11:13:02 Mother No current problems or disability Not available 12/2024 11:13:02 Medical History Condition Response Coronary Artery Disease N Other N High Blood Pressure Y Atrial Fibrillation N Thyroid Problems N Kidney or Bladder Problems N GI Problems N Depression N COPD N Blood Clots N Have you had a mammogram in the last yea r? N Skin Problems N Eating Disorder N Anemia N Heart Attack (MT) N Anxiety Disorder N Diabetes N Muscle, Joint, or Bone Problems N Arthritis N Seizures/Epilepsy N Have you had a colonoscopy in the last 1 0 years? N Acid Reflux (GERD) N Cancer N Stroke N Asthma N Allergies N Have you had a PSA blood test in the las t year? N ADHD N Substance Abuse N High Cholesterol N Hepatitis N Liver Disease N Schizophrenia N Headaches N Heart Failure N Osteoporosis N Immunizations Vaccine Type Date Status Note Provider Nam e and Address Organization Details Recorded Time DTP 6 completed Not Available [facility] 04/13/2025 16:49:11 OPV, trivalent 6 completed Not Available [facility] 04/13/2025 16:49:11 DTP 6 completed Not Available [facility] 04/13/2025 16:49:11 OPV, trivalent 6 completed Not Available [facility] 04/13/2025 16:49:11 DTP 7 completed Not Available [facility] 04/13/2025 16:49:11 OPV, trivalent 7 completed Not Available [facility] 04/13/2025 16:49:11 MMR 8 completed [facility] 04/13/[facility]25 16:49:11 DTP 9 completed Not Available [facility] 04/13/2025 16:49:11 OPV, trivalent 9 completed Not Available [facility] 04/13/2025 16:49:11 OPV, trivalent 1 completed Not Available [facility] 04/13/2025 16:49:11 DTP 1 completed Not Available [facility] 04/13/2025 16:49:11 MMR 1 completed Not Available [facility] 04/13/2025 16:49:11 Hep B, adolescent or pediatric 7 completed Not Available [facility] 04/13/2025 16:49:11 Hep B, adolescent or pediatric 7 completed Not Available [facility] 04/13/2025 16:49:11 pneumococcal polysaccharide PPV23 6 completed Not Available [facility] 04/13/2025 16:49:11 Hep A, adult 6 completed Not Available [facility] 04/13/2025 16:49:11 Influenza, split virus, trivalent, PF 6 completed Not Available [facility] 04/13/2025 16:49:11 Influenza, split virus, trivalent, PF 7 completed Not Available [facility] 04/13/2025 16:49:11 Influenza, MDCK, quadrivalent, PF 0 completed Not Available [facility] 04/13/2025 16:49:11 COVID-19, mRNA, LNP-S, PF, 100 mcg/0.5mL dose or 50 mcg/0.25mL dose 2 completed Not Available [facility] 04/13/2025 16:49:11 COVID-19, mRNA, LNP-S, PF, 100 mcg/0.5mL dose or 50 mcg/0.25mL dose 2 completed Not Available [facility] 04/13/2025 16:49:11 Past Encounters Encounter ID Performer Location Encounter Start Date Encounter Closed Date Diagnosis/Indication Diagnosis SNOMED-CT Code Diagnosis ICD10 Code Diagnosis IMO Codes Diagnosis Note [id number] ÁNGELA MEAD NP [facility] () [address] [place] [address] 03/23/2025 10:15:19 2025 12:16:32 Smoker 83547912 F17.200 Human immunodeficiency virus infection 94922758 B20 58782 Most people with HIV need to take pills at set times each day. It is important to follow all of your doctor s instructi ons about treatment. This is because your HIV can get worse if you skip or stop taking your medicines. Let your doctor know if you have any side effects or problems with your medicines. Some people with HIV also take other types of medicines every day to prevent HIV-relate d infections . For example, most doctors recommend that people with a low T-cell count take an antibiotic every day to keep from getting a lung infection called PCP. (T cells are a special type of white blood cell.)1. Continue current medication s-Cabenuva f/u in 3 wks for injection 3. Labs today including CD4, viral load, RPR, and STI/STD screening 4. Prognosis is excellent and she will follow up with us in 6 months. HIV screening 834978935 Z11.4 820079 [id number] ÁNGELA MEAD NP [facility]) [address] [place] [address] 04/13/2025 16:48:23 04/20/2025 12:58:41 Smoker 08854127 F17.200 Overweight 613005797 E66 .3 Asymptomat ic human immunodeficiency virus infection 95306434 Z21 [id number] to receivefol low up Cabenuva number injection today instructed to return in 2 month for follow-up injection and by monthly afterwards patient instructed on signs and symptoms of adverse reactions also instructed to use warm compress and massage injection site if needed follow-up in office for any redness swelling pain [id number] ÁNGELA MEAD NP [facility] () [address] [place] [address] 06/11/2025 11:43:44 06/22/2025 13:13:26 Overweight in adulthood with body mass index of 25 or more but less than 30 724184491 E66.3 Z68.27 5757745207 Smoker 39182466 F17.200 Human immunodeficiency virus infection 59068006 B20 85490 1. patient to receive Cabenuva injection today2. patient instructed to follow up in 2 months for next injection3 . labs today to check CD4 and viral load4. patient admits that he is sexually active with his only offered doxy PEP patient declined at present Candidiasis of mouth 797 06193 B37.0 05361 Take all prescribed antifungal medication s exactly as directed (examples: nystatin mouth rinse, fluconazol e tablets, or clotrimazo le troches). Swish and hold mouth rinses for the bull riveter prescribed before swallowing or spitting out, depending [...] by Organization Details LastModified Time None Recorded Advance Directives Directive N: Payers Insurance Date Sequence Insurance Name Policy Number Policy Jean Covered Member ID Jean Member ID Guarantor Name 05/10/2025 SLIDING FEE SCHEDULE - [facility] Notes Date Note Type Note Provider Name and Address Organization Details Recorded Time 03/23/2025 text/html ROS as noted in the HPI 39-year-old male with a history of HIV since around 2014 pt states that he contracted it via heterosexual sex. He admits that he is not sexually active. Pt states that Currently on Cabenuva and is being treated for his HIV at [facility] however because of his insurance he can no longer be treated there he states that his next injection. For his Cabenuva is April 11 through April 26. during record search it was noted that the patient has a history of gonorrhea in February of 2021 an oral GC in June of 2023 both of which were treated he also was treated for syphilis in February of 2021 and re-treated in February of 2022 previous records indicate that he was on suppressed as of 3 months ago. ÁNGELA MEAD NP Attn: [address] [place], [address], [facility] 03/23/2025 15:10:21 04/13/2025 text/html 40-year-old male with a history of HIV who recently transferred his care to [facility] presents today for his Cabenuva injection ÁNGELA MEAD NP Attn: [address] , [place], [address], [facility] 04/19/2025 01:54:26 06/11/2025 text/html 40-year-old male with a history of HIV currently on Cabenuva his last injection was who recently transferred his care to [facility] presents today for his Cabenuva injection his last injection was April 13, 2025. he admits that he has done well with his injections he denies any side effects in his viral load was previously undetectable ÁNGELA MEAD NP Attn: [address] , [place], [address], [facility] 06/14/2025 00:22:14
--- OUTSIDE RECORDS SUMMARY | 2025-08-11 19:48 | XMS_ITS | Clinical Summary ---
Author Organization [facility] Address [facility] [place] [address] Care Team Providers Care Data Consultant Name Role Phone None, Provider MD [...] uit: Not Asked; Counseling Given: Not Answered [facility] Utilities Answer Date Recorded In the past 12 months has e [employer], gas, oil, or water [employer] threatened to shut off services in your [...] any time in the past 12 m [facility], were you homeless or living in a halfway (including now)? No 12/16/2024 Sex and Gender [...] and discharge planning Lifestyle No Lisa Kennedy, [employer] Advance Directives * Full Code (Latest Code Status on File) Date Activated Date Inactivated Comments 12/16/2024 1:49 PM 12/18/2024 8:36 PM Care Teams Data Consultant Relationship Specialty Start Date End Date None, Provider, MD PCP - General UNKNOWN PHYSICIAN SPECIALTY 12/16/24
== END 2025-08-11 20:19 | disposition home or self-care (01) ==
LOC: ANHED 19:46
PROVIDERS: Emergency Provider Physician Assistant
DX: S61.211A Laceration without foreign body of left index finger without damage to nail, initial encounter (principal); Z23 Encounter for immunization; F17.210 Nicotine dependence, cigarettes, uncomplicated; B20 Human immunodeficiency virus [HIV] disease; W26.8XXA Contact with other sharp object(s), not elsewhere classified, initial encounter
CPT/HCPCS: 12001; 90471; 90715; 99282; J2003